=== PATIENT | female | born 1975 | race Caucasian/White ===

== ENCOUNTER → 2017-11-10 | Outpatient (CLI) | payer BC ==
--- NOTE | 2017-11-10 08:57 | MM ---
Reason for exam: screening (asymptomatic). Baseline mammogram. History: Took hormonal contraceptives for 1 year. Physical Findings: Nurse did not find any significant physical abnormalities on exam. MG 3D Screening Mammo W/Cad Bilateral CC and MLO view(s) were taken. There are scattered fibroglandular densities. There is no discrete abnormality. These results were verbally communicated with the patient and result sheet given to the patient on 11/10/17. ASSESSMENT: Negative, BI-RAD 1 RECOMMENDATION: Routine screening mammogram of both breasts in 1 year. Manage on a clinical basis with regard to milky discharge.
--- NOTE | 2017-11-10 13:00 | US ---
EXAMINATION TYPE: US transvaginal DATE OF EXAM: 11/10/2017 COMPARISON: 11/07/2015 CLINICAL HISTORY: 42-year-old female Menorrhagia N92.0. PCOS, heavy painful periods TECHNIQUE: Transvaginal (TV). Date of LMP: 10/11/2017 FINDINGS: EXAM MEASUREMENTS: Uterus: 8.3 x 3.9 x 4.9 cm Endometrial Stripe: 1.3 cm Right Ovary: 1.9 x 1.6 x 2.0 cm for a volume of 3.3 mL. Left Ovary: 2.2 x 2.7 x 2.9 cm 1. Uterus: Anteverted with a prominent scar demonstrated. Possible 7 mm niche on image 512 . 2. Endometrium: wnl 3. Right Ovary: 8 mm dominant follicle within. 4. Left Ovary: wnl as visualized, limited visualization due to bowel gas. 5. Bilateral Adnexa: wnl 6. Posterior cul-de-sac: no free fluid IMPRESSION: 1. Anteverted uterus with a prominent scar. There is no accumulated fluid here to clearly indicate a scar niche. 2. Overall size of the ovaries is within normal limits. There is a 8 mm dominant follicle in the righ t ovary. 3. No pelvic free fluid.
== END | disposition home or self-care (01) ==
LOC: RADMAMWWP 07:39
PROVIDERS: ATTEND Family Medicine
DX: Z12.31 Encounter for screening mammogram for malignant neoplasm of breast (principal); N85.4 Malposition of uterus
CPT/HCPCS: 76830; 77063; 77067

== ENCOUNTER 2018-01-01 07:40 | Day surgery (SDC) | payer BC ==
[2017-12-26 14:30] VITALS: BMI 33.5
--- NOTE | 2017-12-31 08:45 | P.HPOB ---
History of Present Illness H&P Date: 12/31/17 Chief Complaint: Menorrhagia Della is a 42-year-old female with very heavy vaginal bleeding. She relates that she is unable to her normal job due to the heaviness of her bleeding which is gotten worse over the last several years. She relates that the bleeding is gotten so bad that she cannot do her job, and sometimes has to stay home from her job due to how heavy the bleeding is. Risks/benefits/alternatives to a D&C with hysteroscopy NovaSure ablation were reviewed with the patient in detail and did include but were not limited to bleeding and infection, perforation as well as potential thermal injuries and pain with potential need for other surgeries in the future due to especially her 2 prior sections. She is accepting of these risks and understands these risks as she is unable to function otherwise and needs some type of therapy to all the questions were answered for her at this time. Past Medical History Additional Past Medical History / Comment(s): ON METFORMIN FOR WEIGHT LOSS NOT DIABETES History of Any Multi-Drug Resistant Organisms: None Reported Past Surgical History: Adenoidectomy, Bariatric Surgery, Section, Cholecystectomy, Orthopedic Surgery, Tonsillectomy Additional Past Surgical History / Comment(s): PITO EN Y-2007. carpal tunnel x2. BMT CHILD Past Anesthesia/Blood Transfusion Reactions: No Reported Reaction Additional Past Anesthesia/Blood Transfusion Reaction / Comment(s): Adopted- FAMILY HX UNKNOWN Smoking Status: Current every day smoker - Past Family History Mother Family Medical History: Unable to Obtain Additional Family Medical History / Comment(s): Adopted Medications and Allergies Home Medications Medication Instructions Recorded Confirmed Type No Known Home Medications 07/26/14 12/26/17 History Allergies Allergy/AdvReac Type Severity Reaction Status Date / Time No Known Allergies Allergy Verified 12/26/17 14:24 Exam Osteopathic Statement: *. No significant issues noted on an osteopathic structural exam other than those noted in the History and Physical/Consult. - OBG Physical Exam Breast: both: normal (no masses) Abdomen: bowel sounds normal, no diffuse tenderness, no bruit present, no guarding noted, no hepatomegaly, no splenomegaly, no mass Vulva: both: normal Vagina: normal moisture, no discharge Cervix: no lesion, no discharge Uterus: normal size, normal contour Adnexa: both: normal Anus/Rectum: normal perianal skin, no rectal mass, no hemorrhoids, heme negative
[~2018-01-01 07:40] MED LIST: DEXAMETHASONE SOD PHOSPHATE 10 MG/ML 1 ML VIAL IV ONE; LACTATED RINGERS 1,000 ML IV SCH; MIDAZOLAM 2 MG/2 ML VIAL IV PRN; ONDANSETRON 4 MG/2 ML VIAL IVP ONE; Pre Op ABX Message 1 EACH MISC MISCELLANE ONE; SCOPOLAMINE 1.5MG/72HR PATCH TRANSDERM ONE; fentaNYL (PF) 50 MCG/ML 2 ML AMP IV PRN
[2018-01-01] MEDS ORDERED: LACTATED RINGERS 1,000 ML IV ONE ×3 (08:12→10:59)
[2018-01-01] MEDS ORDERED: LIDOCAINE 1% 20 ML VIAL (10MG/ML) FOR IV START INTRADERMA ONE (08:13)
[2018-01-01] MEDS ORDERED: SUCCINYLCHOLINE CHLORIDE 100 MG/5 ML SYR IV ONE (09:42)
[2018-01-01] MEDS ORDERED: MIDAZOLAM 2 MG/2 ML VIAL ONE (09:42)
[2018-01-01] MEDS ORDERED: LIDOCAINE 1% INJ 10MG/ML (20 ML MDV) ONE (09:42)
[2018-01-01] MEDS ORDERED: PROPOFOL 10 MG/ML 20 ML VIAL IV ONE (09:42)
[2018-01-01] MEDS ORDERED: fentaNYL (PF) 50 MCG/ML 2 ML AMP ONE (09:42)
[2018-01-01] MEDS ORDERED: FAMOTIDINE 20 MG/2 ML VIAL IVP ONE (10:45)
[2018-01-01 10:54] VITALS: TEMP 96.8
[2018-01-01 11:52] VITALS: BP 123/77; PULSE 68; RESP 18
--- NOTE | 2018-01-12 16:57 | P.OP ---
Date of Procedure: 01/01/18 Preoperative Diagnosis: Menorrhagia Postoperative Diagnosis: Same Procedure(s) Performed: D&C with hysteroscopy and NovaSure Anesthesia: ALEM Surgeon: Jimmy Dhaliwal Estimated Blood Loss (ml): 3 Pathology: other (Uterine curettings) Condition: stable Operative Findings: Poor visualization of uterine lining due to being on menses no gross pathology however Description of Procedure: Patient was taken to the operating suite where a general anesthetic was found to be adequate. She was prepped and draped in the normal sterile fashion and placed in the dorsal lithotomy position. Initially weighted speculum was inserted into the vagina and the anterior lip of the cervix was identified and grasped with an Allis clamp. Cervix was then dilated and uterus was sounded to 8 cm. Camera was inserted limited visualization due to menses. Camera was then removed and sharp curettings of endometrium were obtained and placed on Telfa and sent to pathology. Once this was accomplished NovaSure system was brought in. NovaSure system was placed with length of 4.5 and a width of 3 it was tested and passed its patency test. It was then enabled and the burn was initiated lasting 92 seconds. At the conclusion of the burn system was removed camera was reinserted with good burn noted. All instruments were then removed. Sponge, lap, needle counts were all correct 2. Patient was then taken to the recovery room in stable and satisfactory condition. Plan - Discharge Summary New Discharge Prescriptions: New Ibuprofen [Motrin] 600 mg PO Q6HR PRN #30 tab PRN Reason: Pain Discharge Medication List Ibuprofen [Motrin] 600 mg PO Q6HR PRN #30 tab 01/01/18 [Rx] Follow up Appointment(s)/Referral(s): Jimmy Dhaliwal DO [Doctor of Osteopathic Medicine] - 2 Weeks Activity/Diet/Wound Care/Special Instructions: No heavy lifting, limit stairs and driving today, pelvic rest. If any high temperatures, heavy bleeding, or severe pain call my office Discharge Disposition: HOME SELF-CARE
== END 2018-01-01 12:03 | disposition home or self-care (01) ==
LOC: OR 07:40
PROVIDERS: ATTEND Obstetrics & Gynecology
DX: N84.0 Polyp of corpus uteri (principal); N92.0 Excessive and frequent menstruation with regular cycle; K21.9 Gastro-esophageal reflux disease without esophagitis; F17.200 Nicotine dependence, unspecified, uncomplicated; Z79.84 Long term (current) use of oral hypoglycemic drugs; Z98.84 Bariatric surgery status; Z90.49 Acquired absence of other specified parts of digestive tract
CPT/HCPCS: 81025; 88305; 58563; J2250; J1100; J2405; J2001; J3010; J0330; J2704

== ENCOUNTER 2019-03-31 00:57 | Emergency (ER) | payer BC ==
[2019-03-31 01:15] VITALS: TEMP 97.7
[2019-03-31] MEDS ORDERED: SODIUM CHLORIDE 0.9% 500 ML 500 ML IV STA (01:21)
[2019-03-31] MEDS ORDERED: ONDANSETRON 4 MG/2 ML VIAL IVP STA (01:21)
[2019-03-31] MEDS ORDERED: FAMOTIDINE 20 MG/2 ML VIAL IV STA (01:22)
[2019-03-31] MEDS ORDERED: MAG HYDROX/AL HYDROX/SIMETH 30 ML, HYOSCYAMINE ELIXIR 10 ML, LIDOCAINE VISCOUS 2% 10 ML PO STA ×3 (01:22)
[2019-03-31 02:01] LABS: Basophils % (A) 0 %; Eosinophils # (A) 0.5 k/uL (0-0.7); Eosinophils % (A) 4 %; HGB 14.5 gm/dL (11.4-16.0); Lymphocytes # (A) 1.1 k/uL (1.0-4.8); Lymphocytes % (A) 7 %; MCH 31.9 pg (25.0-35.0); MCHC 33.7 g/dL (31.0-37.0); MCV 94.5 fL (80.0-100.0); Mean Platelet Volume 7.4; Monocytes # (A) 0.7 k/uL (0-1.0); Monocytes % (A) 5 %; Neutrophils % (A) 82 %; Platelet Count 255 k/uL (150-450); RBC 4.55 m/uL (3.80-5.40); RDW 13.1 % (11.5-15.5); WBC 14.6 k/uL (3.8-10.6)
[2019-03-31 02:10] LABS: INR 0.9 (<1.2); Partial Thromboplastin Time 24.9 sec (22.0-30.0); Prothrombin Time 9.7 sec (9.0-12.0)
[2019-03-31 02:12] LABS: ALT 28 U/L (9-52); AST 28 U/L (14-36); African American GFR (CKD) >90 (>60 ml/min/1.73 sqM); Albumin 4.2 g/dL (3.5-5.0); Alkaline Phosphatase 59 U/L (38-126); Amylase 42 U/L (30-110); Anion Gap 9 mmol/L; Blood Urea Nitrogen 13 mg/dL (7-17); Calcium 9.2 mg/dL (8.4-10.2); Carbon Dioxide 24 mmol/L (22-30); Chloride 106 mmol/L (98-107); Glucose 99 mg/dL (74-99); Non-African American GFR(CKD) >90 (>60 ml/min/1.73 sqM); Potassium 4.2 mmol/L (3.5-5.1); Sodium 139 mmol/L (137-145); Total Bilirubin 0.5 mg/dL (0.2-1.3); Total Protein 7.3 g/dL (6.3-8.2)
--- NOTE | 2019-03-31 02:22 | XR ---
EXAM: XR Abdomen, 1 View CLINICAL HISTORY: ITS.REASON XR Reason: abdominal pain TECHNIQUE: Frontal supine view of the abdomen/pelvis. COMPARISON: 10/25/2014 FINDINGS: Intraperitoneal space: No pneumoperitoneum underlying the hemidiaphragms. Gastrointestinal tract: There are focal air-fluid levels in a few nondilated small bowel loops in the right mid to lower abdomen. Scattered gas collections noted throughout the abdomen and pelvis with gas identified in predominantly in the transverse and descending colon to the level of the distal rectosigmoid colon in the central pelvis. Organs: Postoperative changes consistent with prior cholecystectomy. Bones/joints: Unremarkable. IMPRESSION: There are focal air-fluid levels in a few nondilated small bowel loops in the right mid to lower abdomen. This is nonspecific finding and may represent normal variation or represent ileus. No definitive radiographic findings to suggest high-grade bowel obstruction on this single projection examination.
[2019-03-31 02:32] LABS: Appearance,Urine Clear (Clear); Bilirubin,Urine Negative (Negative); Blood,Urine Negative (Negative); Color,Urine Yellow; Glucose,Urine (UA) Negative (Negative); Ketones,Urine Negative (Negative); Leukocyte Esterase,Urine Negative (Negative); Nitrite,Urine Negative (Negative); PH, Urine 5.5 (5.0-8.0); Protein,Urine Trace (Negative); Specific Gravity,Urine 1.028 (1.001-1.035); Urobilinogen,Urine <2.0 mg/dL (<2.0)
--- NOTE | 2019-03-31 02:37 | ED ---
Abdominal Pain HPI - General Chief Complaint: Abdominal Pain Stated Complaint: abd pain Time Seen by Provider: 03/31/19 01:08 Source: patient - History of Present Illness Initial Comments: 43-year-old female patient presents to the emergency department today for evaluation of midepigastric abdominal pain. Patient states this started approximately one hour prior to arrival. Patient states she does have a history of peptic ulcer disease and this feels similar to her previous "attacks". Patient states she did take Tums and Mylanta without relief of symptoms. Patient denies any pain radiating through to her back. Denies nausea or vomiting. Patient does have history of bariatric surgery, states that she has had endoscopy in the past showing ulcers in her stomach. Patient denies any recent rash, fever, chills, shortness breath, chest pain, diarrhea, constipation, back pain, numbness, tingling, dizziness, weakness, hematuria, dysuria, urinary urgency, urinary frequency, headache, visual changes, or any other complaints. - Related Data Previous Rx's Medication Instructions Recorded Ibuprofen [Motrin] 600 mg PO Q6HR PRN #30 tab 01/01/18 Omeprazole [PriLOSEC] 20 mg PO AC-BRKFST #30 cap 03/31/19 Allergies Allergy/AdvReac Type Severity Reaction Status Date / Time No Known Allergies Allergy Verified 12/26/17 14:24 Review of Systems ROS Statement: Those systems with pertinent positive or pertinent negative responses have been documented in the HPI. ROS Other: All systems not noted in ROS Statement are negative. Past Medical History Additional Past Medical History / Comment(s): ON METFORMIN FOR WEIGHT LOSS NOT DIABETES History of Any Multi-Drug Resistant Organisms: None Reported Past Surgical History: Adenoidectomy, Bariatric Surgery, Section, Cholecystectomy, Orthopedic Surgery, Tonsillectomy Additional Past Surgical History / Comment(s): PITO EN Y-2007. carpal tunnel x2. BMT CHILD Past Anesthesia/Blood Transfusion Reactions: No Reported Reaction Additional Past Anesthesia/Blood Transfusion Reaction / Comment(s): Adopted- FAMILY HX UNKNOWN Past Psychological History: No Psychological Hx Reported Smoking Status: Current every day smoker - Past Family History Mother Family Medical History: Unable to Obtain Additional Family Medical History / Comment(s): Adopted General Exam General appearance: alert, in no apparent distress, other (This is a well- developed, well-nourished adult female patient in no acute distress. Vital signs upon presentation are temperature 97.7F, pulse 88, respirations 18, blood pressure 123/104, pulse ox 96% on room air.) Eye exam: Present: normal appearance, PERRL, EOMI. Absent: scleral icterus, conjunctival injection, periorbital swelling ENT exam: Present: normal exam, normal oropharynx, mucous membranes moist Respiratory exam: Present: normal lung sounds bilaterally. Absent: respiratory distress, wheezes, rales, rhonchi, stridor Cardiovascular Exam: Present: regular rate, normal rhythm, normal heart sounds. Absent: systolic murmur, diastolic murmur, rubs, gallop, clicks GI/Abdominal exam: Present: soft, tenderness (Midepigastric tenderness), normal bowel sounds. Absent: distended, guarding, rebound, rigid Neurological exam: Present: alert, oriented X3, CN II-XII intact Psychiatric exam: Present: normal affect, normal mood Skin exam: Present: warm, dry, intact, normal color. Absent: rash Course Vital Signs 03/31/19 03/31/19 01:12 02:15 Temperature 97.7 F Pulse Rate 88 90 Respiratory 18 16 Rate Blood Pressure 123/104 126/92 O2 Sat by Pulse 96 96 Oximetry Medical Decision Making - Medical Decision Making 43-year-old female patient presents to the emergency department today for evaluation of midepigastric abdominal pain. Physical examination did reveal mild midepigastric tenderness. Labs reviewed and are unremarkable. Troponin negative. EKG showed normal sinus rhythm. Patient's x-ray did reveal scattered small bowel air-fluid levels consistent with ileus, or normal variant. Patient is aware of this finding. Upon reevaluation she does report improvement of symptoms. Patient be discharged with prescription for Prilosec she does have a history of peptic ulcer disease. She is instructed follow up with her primary care physician for recheck in 1-2 days. Return parameters were discussed in detail. She verbalizes understanding and agrees this plan. - Lab Data Result diagrams: 03/31/19 01:45 03/31/19 01:45 Lab Results 03/31/19 03/31/19 03/31/19 Range/Units 01:45 01:45 01:45 WBC 14.6 H (3.8-10.6) k/uL RBC 4.55 (3.80-5.40) m/uL Hgb 14.5 (11.4-16.0) gm/dL Hct 43.0 (34.0-46.0) % MCV 94.5 (80.0-100.0) fL MCH 31.9 (25.0-35.0) pg MCHC 33.7 (31.0-37.0) g/dL RDW 13.1 (11.5-15.5) % Plt Count 255 (150-450) k/uL Neutrophils % 82 % Lymphocytes % 7 % Monocytes % 5 % Eosinophils % 4 % Basophils % 0 % Neutrophils # 12.0 H (1.3-7.7) k/uL Lymphocytes # 1.1 (1.0-4.8) k/uL Monocytes # 0.7 (0-1.0) k/uL Eosinophils # 0.5 (0-0.7) k/uL Basophils # 0.0 (0-0.2) k/uL PT 9.7 (9.0-12.0) sec INR 0.9 (<1.2) APTT 24.9 (22.0-30.0) sec Sodium 139 (137-145) mmol/L Potassium 4.2 (3.5-5.1) mmol/L Chloride 106 (98-107) mmol/L Carbon Dioxide 24 (22-30) mmol/L Anion Gap 9 mmol/L BUN 13 (7-17) mg/dL Creatinine 0.76 (0.52-1.04) mg/dL Est GFR (CKD-EPI)AfAm >90 (>60 ml/min/1.73 sqM) Est GFR (CKD-EPI)NonAf >90 (>60 ml/min/1.73 sqM) Glucose 99 (74-99) mg/dL Calcium 9.2 (8.4-10.2) mg/dL Total Bilirubin 0.5 (0.2-1.3) mg/dL AST 28 (14-36) U/L ALT 28 (9-52) U/L Alkaline Phosphatase 59 (38-126) U/L Troponin I (0.000-0.034) ng/mL Total Protein 7.3 (6.3-8.2) g/dL Albumin 4.2 (3.5-5.0) g/dL Amylase 42 (30-110) U/L Lipase 158 (23-300) U/L Urine Color Urine Appearance (Clear) Urine pH (5.0-8.0) Ur Specific [place] (1.001-1.035) Urine Protein (Negative) Urine Glucose (UA) (Negative) Urine Ketones (Negative) Urine Blood (Negative) Urine Nitrite (Negative) Urine Bilirubin (Negative) Urine Urobilinogen (<2.0) mg/dL Ur Leukocyte Esterase (Negative) 03/31/19 03/31/19 Range/Units 01:45 02:00 WBC (3.8-10.6) k/uL RBC (3.80-5.40) m/uL Hgb (11.4-16.0) gm/dL Hct (34.0-46.0) % MCV (80.0-100.0) fL MCH (25.0-35.0) pg MCHC (31.0-37.0) g/dL RDW (11.5-15.5) % Plt Count (150-450) k/uL Neutrophils % % Lymphocytes % % Monocytes % % Eosinophils % % Basophils % % Neutrophils # (1.3-7.7) k/uL Lymphocytes # (1.0-4.8) k/uL Monocytes # (0-1.0) k/uL Eosinophils # (0-0.7) k/uL Basophils # (0-0.2) k/uL PT (9.0-12.0) sec INR (<1.2) APTT (22.0-30.0) sec Sodium (137-145) mmol/L Potassium (3.5-5.1) mmol/L Chloride (98-107) mmol/L Carbon Dioxide (22-30) mmol/L Anion Gap mmol/L BUN (7-17) mg/dL Creatinine (0.52-1.04) mg/dL Est GFR (CKD-EPI)AfAm (>60 ml/min/1.73 sqM) Est GFR (CKD-EPI)NonAf (>60 ml/min/1.73 sqM) Glucose (74-99) mg/dL Calcium (8.4-10.2) mg/dL Total Bilirubin (0.2-1.3) mg/dL AST (14-36) U/L ALT (9-52) U/L Alkaline Phosphatase (38-126) U/L Troponin I <0.012 (0.000-0.034) ng/mL Total Protein (6.3-8.2) g/dL Albumin (3.5-5.0) g/dL Amylase (30-110) U/L Lipase (23-300) U/L Urine Color Yellow Urine Appearance Clear (Clear) Urine pH 5.5 (5.0-8.0) Ur Specific [place] 1.028 (1.001-1.035) Urine Protein Trace H (Negative) Urine Glucose (UA) Negative (Negative) Urine Ketones Negative (Negative) Urine Blood Negative (Negative) Urine Nitrite Negative (Negative) Urine Bilirubin Negative (Negative) Urine Urobilinogen <2.0 (<2.0) mg/dL Ur Leukocyte Esterase Negative (Negative) - EKG Data -: EKG Interpreted by Me EKG Comments: EKG obtained at 05 13 shows normal sinus rhythm with a ventricular rate of 87, MO interval 168, QRS duration 82, QT 388, QTC 466. No evidence of ST elevation or depression. - Radiology Data Radiology results: report reviewed Disposition Clinical Impression: Abdominal pain Disposition: HOME SELF-CARE Condition: Good Instructions (If sedation given, give patient instructions): Diet for Stomach Ulcers and Gastritis (ED), Abdominal Pain (ED) Additional Instructions: Follow-up with your primary care physician for recheck as soon as possible. Take medication as directed. Return to the emergency department immediately for any new, worsening, or concerning symptoms. Prescriptions: Omeprazole [PriLOSEC] 20 mg PO AC-BRKFST #30 cap Is patient prescribed a controlled substance at d/c from ED?: No Referrals: Nicholas Mijares MD [Primary Care Provider] - 1-2 days Time of Disposition: 03:01
[2019-03-31 02:52] VITALS: RESP 16
[2019-03-31 04:07] VITALS: BP 129/95; PULSE 94
== END 2019-03-31 03:15 | disposition home or self-care (01) ==
LOC: EC 00:57
DX: R10.13 Epigastric pain (principal); R93.5 Abnormal findings on diagnostic imaging of other abdominal regions, including retroperitoneum; F17.200 Nicotine dependence, unspecified, uncomplicated; Z79.84 Long term (current) use of oral hypoglycemic drugs; Z90.49 Acquired absence of other specified parts of digestive tract; Z98.84 Bariatric surgery status; Z87.11 Personal history of peptic ulcer disease
CPT/HCPCS: 36415; 80053; 82150; 83690; 84484; 85025; 85610; 85730; 81003; 74018; 99284; 96374; 96375; 96361; J2405

== ENCOUNTER → 2019-04-01 | Outpatient (CLI) | payer OTHER | END | disposition home or self-care (01) | LOC: RADCTMAIN 10:56 | PROVIDERS: ATTEND Physician Assistant | DX: Z53.9 Procedure and treatment not carried out, unspecified reason (principal) ==

== ENCOUNTER → 2019-04-02 | Outpatient (CLI) | payer OTHER ==
--- NOTE | 2019-04-02 12:54 | CT ---
EXAMINATION TYPE: CT abdomen pelvis w con DATE OF EXAM: 04/02/2019 HISTORY: Intestinal obstruction. Abdominal pain CT DLP: 1839mGycm Automated Exposure Control for Dose Reduction was Utilized. CONTRAST: CT scan of the abdomen and pelvis is performed with IV Contrast, patient injected with 100 mL of Isov ue 300. COMPARISON: 10/26/2014 FINDINGS: LUNG BASES: Minimal right basilar subsegmental atelectasis. LIVER/GB: No significant abnormality is appreciated. Focal fatty infiltration is seen near the fissur e for the falciform ligament on axial image 22 and 23. Gallbladder surgically absent. PANCREAS: No significant abnormality is seen. SPLEEN: There is a small splenule incidentally seen ADRENALS: No nodules or thickening. KIDNEYS: Kidneys enhance and excrete symmetrically without hydronephrosis.. BOWEL: Oral contrast extends through the small bowel into the colon opacifying the cecum and portions of the right hemicolon. No dilated bowel or focal pericolonic/perienteric fat stranding. Partial gas trectomy change is again noted. UTERUS/ADNEXA: No gross abnormality seen. LYMPH NODES: No greater than 1cm abdominal or pelvic lymph nodes are appreciated. Scattered nonenlarg ed mesenteric lymph nodes in the central mesentery. OSSEOUS STRUCTURES: Intervertebral disc space narrowing at L5-S1 mild multilevel degenerative change of the visualized spine. IMPRESSION: No significant acute finding is seen to account for patient's clinical symptoms. No evide nce of bowel obstruction.
== END ==
LOC: RADCTMAIN 10:38
PROVIDERS: ATTEND Family Medicine
DX: K56.609 Unspecified intestinal obstruction, unspecified as to partial versus complete obstruction (principal)
CPT/HCPCS: 74177; Q9967 ×2

== ENCOUNTER 2019-11-10 03:25 | Emergency (ER) | payer BC, OTHER ==
--- NOTE | 2019-11-10 03:43 | ED ---
Abdominal Pain HPI - General Chief Complaint: Abdominal Pain Stated Complaint: abd pain Time Seen by Provider: 11/10/19 03:42 Source: patient, RN notes reviewed, old records reviewed Mode of arrival: ambulatory Limitations: no limitations - History of Present Illness Initial Comments: This is a 44-year-old female DF for evaluation of abdominal pain burning burning gastritis. Patient states she has a history of reflux recent she gets a GI cocktail it is resolved. Patient has positive nausea no active vomiting no fevers no diarrhea abdominal pain is nontender but substernal burning radiating to her chest. History of same MD Complaint: abdominal pain -: hour(s) Location: epigastric Radiation: epigastric Migration to: epigastric Severity: moderate Severity scale (1-10): 6 Quality: sharp Consistency: constant Improves With: nothing Worsens With: nothing Associated Symptoms: nausea Treatments Prior to Arrival: antacids - Related Data Previous Rx's Medication Instructions Recorded Ibuprofen [Motrin] 600 mg PO Q6HR PRN #30 tab 01/01/18 Omeprazole [PriLOSEC] 20 mg PO AC-BRKFST #30 cap 03/31/19 Allergies Allergy/AdvReac Type Severity Reaction Status Date / Time No Known Allergies Allergy Verified 11/10/19 03:30 Review of Systems ROS Statement: Those systems with pertinent positive or pertinent negative responses have been documented in the HPI. ROS Other: All systems not noted in ROS Statement are negative. Past Medical History Additional Past Medical History / Comment(s): "ulcer attacks" History of Any Multi-Drug Resistant Organisms: None Reported Past Surgical History: Adenoidectomy, Bariatric Surgery, Section, Cholecystectomy, Orthopedic Surgery, Tonsillectomy Additional Past Surgical History / Comment(s): PITO EN Y-2007. carpal tunnel x2. BMT CHILD Past Anesthesia/Blood Transfusion Reactions: No Reported Reaction Additional Past Anesthesia/Blood Transfusion Reaction / Comment(s): Adopted- FAMILY HX UNKNOWN Past Psychological History: No Psychological Hx Reported Smoking Status: Current every day smoker Past Alcohol Use History: None Reported Past Drug Use History: None Reported - Past Family History Mother Family Medical History: Unable to Obtain Additional Family Medical History / Comment(s): Adopted General Exam General appearance: alert, in no apparent distress Head exam: Present: atraumatic, normocephalic, normal inspection Eye exam: Present: normal appearance, PERRL, EOMI. Absent: scleral icterus, conjunctival injection, periorbital swelling ENT exam: Present: normal exam, mucous membranes moist Neck exam: Present: normal inspection. Absent: tenderness, meningismus, lymphadenopathy Respiratory exam: Present: normal lung sounds bilaterally. Absent: respiratory distress, wheezes, rales, rhonchi, stridor Cardiovascular Exam: Present: regular rate, normal rhythm, normal heart sounds. Absent: systolic murmur, diastolic murmur, rubs, gallop, clicks GI/Abdominal exam: Present: soft, normal bowel sounds. Absent: distended, tenderness, guarding, rebound, rigid Extremities exam: Present: normal inspection, full ROM, normal capillary refill. Absent: tenderness, pedal edema, joint swelling, calf tenderness Back exam: Present: normal inspection Neurological exam: Present: alert, oriented X3, CN II-XII intact Psychiatric exam: Present: normal affect, normal mood Skin exam: Present: warm, dry, intact, normal color. Absent: rash Course Vital Signs 11/10/19 11/10/19 03:26 04:37 Temperature 97.6 F 97.1 F L Pulse Rate 74 65 Respiratory 18 16 Rate Blood Pressure 160/100 130/88 O2 Sat by Pulse 98 97 Oximetry - Reevaluation(s) Reevaluation #1: Medical record is reviewed Patient symptoms are resolved Patient informed results were discharge Medical Decision Making - Medical Decision Making 44 female dear with nonspecific abdominal pain. Symptoms are resolved here in the ER x-rays labwork is normal patient can be discharged home - Radiology Data Radiology results: report reviewed (X-ray abdominal series is negative for acute disease), image reviewed Disposition Clinical Impression: Abdominal pain, GERD (gastroesophageal reflux disease), Gastritis Disposition: HOME SELF-CARE Condition: Good Instructions (If sedation given, give patient instructions): Gastritis (ED), Abdominal Pain (ED) Is patient prescribed a controlled substance at d/c from ED?: No Referrals: Nicholas Mijares MD [Primary Care Provider] - 1-2 days
[2019-11-10] MEDS ORDERED: MAG HYDROX/AL HYDROX/SIMETH 30 ML, HYOSCYAMINE ELIXIR 10 ML, LIDOCAINE VISCOUS 2% 10 ML PO STA ×3 (03:46)
--- NOTE | 2019-11-10 04:21 | XR ---
EXAMINATION TYPE: XR abdomen acute w cxr DATE OF EXAM: 11/10/2019 COMPARISON: 03/31/2019 HISTORY: Abdominal pain TECHNIQUE: 4 views FINDINGS: Heart and mediastinum are normal. Lungs are clear. There are clips from cholecystectomy. Brown wel gas pattern is normal. There is no sign of intestinal obstruction or pneumoperitoneum. Fecal maddie morgan is normal. There are no pathologic calcifications over the kidneys. There is no evidence of abdom inal mass. Bony thorax is intact. IMPRESSION: Nonacute abdomen. Normal chest. There is clearing of intestinal fluid levels compared to old exam.
[2019-11-10 04:38] VITALS: BP 130/88; PULSE 65; RESP 16; TEMP 97.1
== END 2019-11-10 04:38 | disposition home or self-care (01) ==
LOC: EC 03:25
DX: K29.70 Gastritis, unspecified, without bleeding (principal); K21.9 Gastro-esophageal reflux disease without esophagitis; F17.200 Nicotine dependence, unspecified, uncomplicated; Z98.84 Bariatric surgery status; Z90.49 Acquired absence of other specified parts of digestive tract
CPT/HCPCS: 74022; 99284

== ENCOUNTER → 2020-05-03 | Outpatient (CLI) | payer OTHER ==
[2020-05-03 12:13] LABS: Basophils # (A) 0.1 k/uL (0-0.2); Basophils % (A) 1 %; Eosinophils # (A) 0.6 k/uL (0-0.7); Eosinophils % (A) 5 %; HCT 42.7 % (34.0-46.0); HGB 13.6 gm/dL (11.4-16.0); Lymphocytes # (A) 2.3 k/uL (1.0-4.8); Lymphocytes % (A) 19 %; MCHC 31.9 g/dL (31.0-37.0); Mean Platelet Volume 7.2; Monocytes # (A) 0.6 k/uL (0-1.0); Monocytes % (A) 5 %; Neutrophils # (A) 8.2 k/uL (1.3-7.7); Neutrophils % (A) 67 %; Platelet Count 301 k/uL (150-450); RBC 4.54 m/uL (3.80-5.40); RDW 13.6 % (11.5-15.5); WBC 12.2 k/uL (3.8-10.6)
[2020-05-03 12:26] LABS: African American GFR (CKD) >90 (>60 ml/min/1.73 sqM); Anion Gap 2 mmol/L; Blood Urea Nitrogen 9 mg/dL (7-17); Carbon Dioxide 29 mmol/L (22-30); Chloride 107 mmol/L (98-107); Glucose 96 mg/dL (74-99); Non-African American GFR(CKD) 89 (>60 ml/min/1.73 sqM); Potassium 4.1 mmol/L (3.5-5.1); Sodium 138 mmol/L (137-145)
== END | disposition home or self-care (01) ==
LOC: LABPAT 10:58
PROVIDERS: ATTEND Obstetrics & Gynecology
DX: Z01.818 Encounter for other preprocedural examination (principal)
CPT/HCPCS: 36415; 80048; 85025; 86850; 86900; 86901

== ENCOUNTER 2020-05-04 05:47 | Day surgery (SDC) | payer BC, OTHER ==
[2020-04-26 08:42] VITALS: BMI 33.0
--- NOTE | 2020-05-02 16:30 | P.HPOB ---
History of Present Illness H&P Date: 05/02/20 Chief Complaint: Dysfunctional uterine bleeding Della is a 44-year-old female who has dysfunctional uterine bleeding. She underwent a NovaSure in December 2017 and she has not had any point where she has stopped bleeding. It did improve somewhat but from October of last year until November she had almost daily bleeding and the symptoms have gotten heavy again and she needs use a pad and a tampon to keep bleeding from happening. 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 She is scheduled for a robotic-assisted laparoscopic hysterectomy possible DENTON and possible BSO. We'll plan to remove the fallopian tubes with the surgery however. Risks/benefits/alternatives to this procedure were reviewed with the patient in detail and did include but were not limited to bleeding and infection, damage to bladder or bowel, ureteral injuries, vascular or nerve damage potential need for further surgery or . Her past surgical history does include 2 mL sections and this she is aware does put her at increased risk for bladder injury. She relates she also has significant pain when she is on her cycles as well. All the questions were answered for her prior to proceeding to the operative room. Past Medical History Past Medical History: Fibromyalgia, GERD/Reflux Additional Past Medical History / Comment(s): peptic ulcers, migraines, anemia, History of Any Multi-Drug Resistant Organisms: None Reported Past Surgical History: Adenoidectomy, Bariatric Surgery, Section, Cholecystectomy, Ear Surgery, Orthopedic Surgery, Tonsillectomy, Uterine Ablation Additional Past Surgical History / Comment(s): PITO EN Y-2007, man carpal tunnel, C/S x 2 Past Anesthesia/Blood Transfusion Reactions: No Reported Reaction Additional Past Anesthesia/Blood Transfusion Reaction / Comment(s): Adopted- FAMILY HX UNKNOWN Smoking Status: Current every day smoker - Past Family History Mother Family Medical History: Unable to Obtain Additional Family Medical History / Comment(s): Adopted Medications and Allergies Home Medications Medication Instructions Recorded Confirmed Type Aspirin/Acetaminophen/Caffeine 2 each PO DIRECTED PRN 04/26/20 04/26/20 History [Excedrin Migraine Caplet] Omeprazole [PriLOSEC] 20 mg PO HS 04/26/20 04/26/20 History Zinc Gummie 2 tab PO HS 04/26/20 04/26/20 History Allergies Allergy/AdvReac Type Severity Reaction Status Date / Time No Known Allergies Allergy Verified 04/26/20 08:32 Exam Osteopathic Statement: *. No significant issues noted on an osteopathic structural exam other than those noted in the History and Physical/Consult. - OBG Physical Exam Breast: both: normal (no masses) Abdomen: bowel sounds normal, no diffuse tenderness, no bruit present, no guarding noted, no hepatomegaly, no splenomegaly, no mass Vulva: both: normal Vagina: normal moisture, no discharge Cervix: no lesion, no discharge Uterus: normal size, normal contour Adnexa: both: normal Anus/Rectum: normal perianal skin, no rectal mass, no hemorrhoids, heme negative
[2020-05-04] MEDS ORDERED: DEXAMETHASONE SOD PHOSPHATE 4 MG/ML 1 ML VIAL IV ONE (05:58)
[2020-05-04] MEDS ORDERED: MIDAZOLAM 2 MG/2 ML VIAL IV PRN (05:58)
[2020-05-04] MEDS ORDERED: ONDANSETRON 4 MG/2 ML VIAL IVP ONE (05:58)
[2020-05-04] MEDS ORDERED: LIDOCAINE 1% (10MG/ML) FOR IV START INTRADERMA PRN (05:58)
[2020-05-04] MEDS ORDERED: LACTATED RINGERS 1,000 ML IV ONE (06:12)
[2020-05-04] MEDS ORDERED: MIDAZOLAM 2 MG/2 ML VIAL IVP ONE ×2 (06:50)
[2020-05-04] MEDS ORDERED: PROPOFOL 10 MG/ML 20 ML VIAL IV ONE (07:20)
[2020-05-04] MEDS ORDERED: LIDOCAINE 1% INJ 10MG/ML (20 ML MDV) ONE (07:20)
[2020-05-04] MEDS ORDERED: KETOROLAC 15 MG/ML 1 ML VIAL ONE (07:20)
[2020-05-04] MEDS ORDERED: NEOSTIGMINE 1 MG/ML 10 ML VIAL ONE (07:20)
[2020-05-04] MEDS ORDERED: GLYCOPYRROLATE 0.2 MG/ML 2 ML VIAL ONE (07:20)
[2020-05-04] MEDS ORDERED: ROCURONIUM 10 MG/ML (10 ML VIAL) IV ONE (07:20)
[2020-05-04] MEDS ORDERED: MIDAZOLAM 2 MG/2 ML VIAL ONE (07:20)
[2020-05-04] MEDS ORDERED: fentaNYL (PF) 50 MCG/ML 2 ML AMP ONE (07:20)
[2020-05-04] MEDS ORDERED: BUPIVACAINE (PF) 0.25% 30 ML VIAL SQ ONE ×2 (07:58)
[2020-05-04] MEDS ORDERED: ONDANSETRON 4 MG/2 ML VIAL IVP PRN (08:52)
[2020-05-04] MEDS ORDERED: SIMETHICONE 80 MG CHEWABLE PO PRN (08:52)
[2020-05-04] MEDS ORDERED: KETOROLAC 15 MG/ML 1 ML VIAL IVP PRN (08:52)
[2020-05-04] MEDS ORDERED: HYDROcodone/APAP 5-325MG 1 EACH TAB PO PRN (08:53)
--- NOTE | 2020-05-04 08:59 | P.OP ---
Date of Procedure: 05/04/20 Preoperative Diagnosis: Description. Bleeding: Pelvic pain: Failed NovaSure Postoperative Diagnosis: Same Procedure(s) Performed: Robotic-assisted laparoscopic hysterectomy with bilateral salpingectomy Anesthesia: ALEM Surgeon: Jimmy Dhaliwal Ledger Clerk #1: Lulu Shea Estimated Blood Loss (ml): 50 IV fluids (ml): 700 Urine output (ml): 100 Pathology: other (Uterus, cervix and fallopian tubes) Condition: stable Disposition: floor Operative Findings: Pathology pending. Noted significant adhesion of the bladder to the anterior uterine wall requiring careful dissection Description of Procedure: Patient was taken to the operating suite where general anesthetic was found be adequate. She was prepped and draped in the normal sterile fashion and placed in the dorsal lithotomy position. Initially a weighted speculum was inserted into the vagina and the anterior lip of the cervix identified and grasped with single-tooth tenaculum. Cervix was then dilated and uterus was sounded to 9 cm. Shelli manipulator was then inserted without difficulty using an 8 tip and a 3 cm cup and stay sutures at 3 and 9. Once this was completed all other instruments were removed and Anthony cath was placed. Gloves were then changed and attention was turned to the abdominal portion procedure where 3 mL of quarter percent Marcaine was injected periumbilically. Through this injected anesthetic a 5 mm skin incision was made and through this incision, under direct visualization with an optical trocar and sleeve the camera was inserted. Once peritoneal placement was assured gas was allowed to fully insufflate the abdomen and patient was placed in a 25 and all of her position. 2 lateral ports were then placed 10 cm lateral to the umbilicus bilaterally and a fourth port and sleeve was then inserted through a 1 cm incision between the left lateral and medial port. Medial port was then exchanged for a da Dante port robot was brought in and docked. Once fully docked a scissor was placed in the one arm and a [place] grasper through the 3 arm and at this point broke scrub and went to the console. Observations pelvis were noted. Uterus was then elevated and tipped to the right-hand side and the left fallopian tube was excised. Once this was completed left utero-ovarian ligament was identified cauterized transected and the mesosalpinx tissues to the round ligament were also cauterized transected round ligament was then cauterized transected and anterior posterior leafs were developed. Uterine vascularity on the left-hand side of the uterus was then cauterized to the cardinal ligaments. Once this was completed bladder flap was identified it was firmly adherent to the anterior uterus well above its normal position. Very careful dissection with both sharp and blunt dissection was then done to move it out of the operative field. Once was out of the operative field attention was turned to the right side of the uterus which in a similar fashion was developed. Once this was completed and verification of good dissection of the bladder out of the operative field Shelli manipulator had the balloon blown up on the cuff and anterior colpotomy was made. Once this was completed we moved in a counterclockwise fashion following the blue couple around 3 and 60 and she the head when necessary to maintain excellent hemostasis. Once it was fully removed it was brought into the vagina to maintain pneumoperitoneum. Once this was completed verification of hemostasis along the pedicles was then performed. Once this was felt to be adequate incidents were exchanged for a cardia grasper and a make suture cut the vaginal cuff was reapproximated with 2 OB lock suture in a running fashion. Pelvis was then irrigated and this fluid was then suctioned out. All these incidents were then removed and gas was allowed to expel from the abdomen once hemostasis was verified. 5 deep breaths were provided during this process. At this point I re-scrub in and did a cystoscopy with excellent flow noted from both ureteral jets and Dr. Shea reapproximated the abdominal incisions with 4-0 Vicryl subcuticularly and the remaining 7 mL of Marcaine was injected around the incisions. Sponge instruments and needles were all correct 2. Patient was then taken to the recovery room in stable and satisfactory condition.
[2020-05-04] MEDS: HYDROmorphone 0.5 MG/0.5 ML SYRINGE IVP PRN ×2 (09:31→09:50)
[2020-05-04] MEDS ORDERED: SODIUM CHLORIDE 0.9% 1,000 ML IV ONE (09:35)
[2020-05-04] MEDS ORDERED: FAMOTIDINE 20 MG/2 ML VIAL IVP ONE (09:44)
[2020-05-04] MEDS ORDERED: diphenhydrAMINE 50 MG/ML 1 ML VIAL IVP ONE (09:57)
[2020-05-04] MEDS ORDERED: LABETALOL SYRINGE 5 MG/ML IVP ONE ×2 (10:16→10:51)
[2020-05-04] MEDS: LACTATED RINGERS 1,000 ML IV SCH (12:07)
[2020-05-04] MEDS: SENNOSIDES-DOCUSATE SODIUM 1 EACH TAB PO SCH ×2 (12:07→19:27)
[2020-05-04] MEDS: HYDROcodone/APAP 5-325MG 1 EACH TAB PO PRN ×2 (15:15→19:27)
[2020-05-04] MEDS ORDERED: PANTOPRAZOLE 40 MG TABLET PO SCH (21:00)
[2020-05-04] MEDS ORDERED: ZOLPIDEM 5 MG TAB PO PRN (21:29)
[2020-05-05] MEDS: HYDROcodone/APAP 5-325MG 1 EACH TAB PO PRN ×3 (00:36→08:14)
[2020-05-05] MEDS: LACTATED RINGERS 1,000 ML IV SCH (04:26)
[2020-05-05] MEDS: SENNOSIDES-DOCUSATE SODIUM 1 EACH TAB PO SCH (08:17)
--- NOTE | 2020-05-05 08:59 | P.DS ---
Providers Expected date of discharge: 05/05/20 Attending physician: Jimmy Dhaliwal Primary care physician: Nicholas Mijares [facility] Course: Della is doing very well postop day 1. She is ambulating, voiding, and tolerating her diet. She is requesting discharge home today. Vital signs are stable and she is afebrile. Heart regular, lungs clear, extremities without pain. Abdomen soft she has bowel sounds and her incisions are intact. We'll plan discharged home today. Prescription for more Motrin and [place] were 4 to the pharmacy. Discharge instructions are thoroughly reviewed and all questions were answered for her prior to her discharge. She'll follow up with me in 1 week for incision exam. Patient Condition at Discharge: Good Plan - Discharge Summary Discharge Rx Participant: Yes New Discharge Prescriptions: New Ibuprofen [Motrin] 600 mg PO Q6HR PRN #30 tab PRN Reason: Pain HYDROcodone/APAP 5-325MG [[place] 5-325] 1 tab PO Q4HR PRN #30 tab PRN Reason: Pain No Action Omeprazole [PriLOSEC] 20 mg PO HS Aspirin/Acetaminophen/Caffeine [Excedrin Migraine Caplet] 2 each PO DIRECTED PRN PRN Reason: migraines Zinc Gummie 2 tab PO HS Discharge Medication List Aspirin/Acetaminophen/Caffeine [Excedrin Migraine Caplet] 2 each PO DIRECTED PRN 04/26/20 [History] Omeprazole [PriLOSEC] 20 mg PO HS 04/26/20 [History] Zinc Gummie 2 tab PO HS 04/26/20 [History] HYDROcodone/APAP 5-325MG [[place] 5-325] 1 tab PO Q4HR PRN #30 tab 05/05/20 [Rx] Ibuprofen [Motrin] 600 mg PO Q6HR PRN #30 tab 05/05/20 [Rx] Follow up Appointment(s)/Referral(s): Jimmy Dhaliwal DO [Doctor of Osteopathic Medicine] - 1 Week Activity/Diet/Wound Care/Special Instructions: No heavy lifting, limit stairs and driving, and pelvic rest. If any severe pain, high temperatures, or severe bleeding call my office or [facility] emergency room. She is aware to have no tub baths for 2 weeks showering is fine. Discharge Disposition: HOME SELF-CARE
[2020-05-05 09:30] VITALS: BP 138/90; PULSE 84; RESP 24; TEMP 97.9
== END 2020-05-05 10:47 | disposition home or self-care (01) ==
LOC: OR 05:47 → 6PED 08:48 → OR 05-05 10:47
PROVIDERS: ATTEND Obstetrics & Gynecology
DX: N93.8 Other specified abnormal uterine and vaginal bleeding (principal); R10.2 Pelvic and perineal pain; N92.0 Excessive and frequent menstruation with regular cycle; M79.7 Fibromyalgia; K21.9 Gastro-esophageal reflux disease without esophagitis; Z87.11 Personal history of peptic ulcer disease; G43.909 Migraine, unspecified, not intractable, without status migrainosus; D64.9 Anemia, unspecified; Z90.49 Acquired absence of other specified parts of digestive tract; Z98.891 History of uterine scar from previous surgery; Z98.84 Bariatric surgery status; Z98.890 Other specified postprocedural states; Z90.89 Acquired absence of other organs; F17.200 Nicotine dependence, unspecified, uncomplicated; Z79.899 Other long term (current) drug therapy
CPT/HCPCS: 58571; S2900; 81025; 86850; 86900; 86901; 88307

== ENCOUNTER 2020-05-06 03:43 | Emergency (ER) | payer OTHER ==
[2020-05-06 03:47] VITALS: TEMP 98.5
[2020-05-06] MEDS ORDERED: MAG HYDROX/AL HYDROX/SIMETH 30 ML CUP PO PRN (03:54)
[2020-05-06] MEDS ORDERED: MAG HYDROX/AL HYDROX/SIMETH 30 ML, HYOSCYAMINE ELIXIR 10 ML, LIDOCAINE VISCOUS 2% 10 ML PO STA ×6 (03:59→05:49)
[2020-05-06] MEDS ORDERED: PANTOPRAZOLE 40 MG/10 ML VIAL IVP STA (04:33)
[2020-05-06] MEDS ORDERED: ONDANSETRON 4 MG/2 ML VIAL IVP STA (04:33)
[2020-05-06] MEDS ORDERED: SODIUM CHLORIDE 0.9% 1,000 ML IV STA ×2 (04:33)
[2020-05-06] MEDS ORDERED: MORPHINE SULFATE 4 MG/ML SYRINGE IV STA (04:33)
--- NOTE | 2020-05-06 04:37 | ED ---
Abdominal Pain HPI - General Chief Complaint: Abdominal Pain Stated Complaint: Abd Pain Time Seen by Provider: 05/06/20 04:27 Source: patient, RN notes reviewed, old records reviewed Mode of arrival: ambulatory Limitations: no limitations - History of Present Illness Initial Comments: This is a 44-year-old female presents today for evaluation of abdominal pain. Patient states feels just like her prior history of ulcers, gastritis. Patient's recent history is complicated by having a hysterectomy patient doesn't believe that the pain is related to that. She has no fevers. No active nausea and vomiting. She is passing stool without difficulty. MD Complaint: abdominal pain, other (ulcers) -: days(s) Location: diffuse Migration to: epigastric Severity: severe Severity scale (1-10): 8 Quality: stabbing Consistency: constant Improves With: nothing Worsens With: eating, vomiting Associated Symptoms: nausea - Related Data Home Medications Medication Instructions Recorded Confirmed Aspirin/Acetaminophen/Caffeine 2 each PO DIRECTED PRN 04/26/20 04/26/20 [Excedrin Migraine Caplet] Omeprazole [PriLOSEC] 20 mg PO HS 04/26/20 04/26/20 Zinc Gummie 2 tab PO HS 04/26/20 04/26/20 Previous Rx's Medication Instructions Recorded HYDROcodone/APAP 5-325MG [[place] 1 tab PO Q4HR PRN #30 tab 05/05/20 5-325] Ibuprofen [Motrin] 600 mg PO Q6HR PRN #30 tab 05/05/20 Allergies Allergy/AdvReac Type Severity Reaction Status Date / Time No Known Allergies Allergy Verified 05/06/20 03:47 Review of Systems ROS Statement: Those systems with pertinent positive or pertinent negative responses have been documented in the HPI. ROS Other: All systems not noted in ROS Statement are negative. Past Medical History Past Medical History: Fibromyalgia, GERD/Reflux Additional Past Medical History / Comment(s): peptic ulcers, migraines, anemia, History of Any Multi-Drug Resistant Organisms: None Reported Past Surgical History: Adenoidectomy, Bariatric Surgery, Section, Cholecystectomy, Ear Surgery, Hysterectomy, Orthopedic Surgery, Tonsillectomy, Uterine Ablation Additional Past Surgical History / Comment(s): PITO EN Y-2007, man carpal tunnel, C/S x 2 Past Anesthesia/Blood Transfusion Reactions: No Reported Reaction Additional Past Anesthesia/Blood Transfusion Reaction / Comment(s): Adopted-FAM VEREN[place] HX UNKNOWN Past Psychological History: No Psychological Hx Reported Smoking Status: Current every day smoker Past Alcohol Use History: None Reported Past Drug Use History: None Reported - Past Family History Mother Family Medical History: Unable to Obtain Additional Family Medical History / Comment(s): Adopted Father Family Medical History: Unable to Obtain General Exam Limitations: no limitations General appearance: alert, in no apparent distress, obese Head exam: Present: atraumatic, normocephalic, normal inspection Eye exam: Present: normal appearance, PERRL, EOMI. Absent: scleral icterus, conjunctival injection, periorbital swelling ENT exam: Present: normal exam, mucous membranes moist Neck exam: Present: normal inspection. Absent: tenderness, meningismus, lymphadenopathy Respiratory exam: Present: normal lung sounds bilaterally. Absent: respiratory distress, wheezes, rales, rhonchi, stridor Cardiovascular Exam: Present: regular rate, normal rhythm, normal heart sounds. Absent: systolic murmur, diastolic murmur, rubs, gallop, clicks GI/Abdominal exam: Present: soft, normal bowel sounds. Absent: distended, tenderness, guarding, rebound, rigid Extremities exam: Present: normal inspection, full ROM, normal capillary refill. Absent: tenderness, pedal edema, joint swelling, calf tenderness Back exam: Present: normal inspection Neurological exam: Present: alert, oriented X3, CN II-XII intact Psychiatric exam: Present: normal affect, normal mood Skin exam: Present: warm, dry, intact, normal color. Absent: rash Course Vital Signs 05/06/20 05/06/20 05/06/20 03:44 04:47 06:02 Temperature 98.5 F Pulse Rate 79 92 74 Respiratory 20 16 16 Rate Blood Pressure 166/103 138/98 158/108 O2 Sat by Pulse 99 97 98 Oximetry - Reevaluation(s) Reevaluation #1: Medical record is reviewed Patient currently has adequate pain control Patient feels comfortable with discharge home Medical Decision Making - Medical Decision Making 44 female DF for evaluation postoperative pain postoperative abdominal pain recent hysterectomy. Patient does believe that she is has ulcerative type pain from a gastritis. She feels better currently and can be discharged - Lab Data Result diagrams: 05/06/20 04:51 05/06/20 04:51 Lab Results 0105/06/20 05/06/20 Range/Units 04:51 04:51 04:51 WBC 9.2 (3.8-10.6) k/uL RBC 3.96 (3.80-5.40) m/uL Hgb 12.1 (11.4-16.0) gm/dL Hct 37.4 (34.0-46.0) % MCV 94.5 (80.0-100.0) fL MCH 30.7 (25.0-35.0) pg MCHC 32.5 (31.0-37.0) g/dL RDW 14.1 (11.5-15.5) % Plt Count 249 (150-450) k/uL MPV 7.1 Neutrophils % 65 % Lymphocytes % 21 % Monocytes % 6 % Eosinophils % 6 % Basophils % 0 % Neutrophils # 6.0 (1.3-7.7) k/uL Lymphocytes # 1.9 (1.0-4.8) k/uL Monocytes # 0.5 (0-1.0) k/uL Eosinophils # 0.5 (0-0.7) k/uL Basophils # 0.0 (0-0.2) k/uL Sodium 138 (137-145) mmol/L Potassium 3.7 (3.5-5.1) mmol/L Chloride 107 (98-107) mmol/L Carbon Dioxide 30 (22-30) mmol/L Anion Gap 1 mmol/L BUN 6 L (7-17) mg/dL Creatinine 0.59 (0.52-1.04) mg/dL Est GFR (CKD-EPI)AfAm >90 (>60 ml/min/1.73 sqM) Est GFR (CKD-EPI)NonAf >90 (>60 ml/min/1.73 sqM) Glucose 99 (74-99) mg/dL Plasma Lactic Acid Ady 1.4 (0.7-2.0) mmol/L Calcium 8.6 (8.4-10.2) mg/dL Phosphorus 3.4 (2.5-4.5) mg/dL Magnesium 1.9 (1.6-2.3) mg/dL Total Bilirubin 0.7 (0.2-1.3) mg/dL AST 597 H (14-36) U/L ALT 305 H (4-34) U/L Alkaline Phosphatase 147 H (38-126) U/L Total Protein 5.7 L (6.3-8.2) g/dL Albumin 3.2 L (3.5-5.0) g/dL Amylase 30 (30-110) U/L Lipase 110 (23-300) U/L - Radiology Data Radiology results: report reviewed (X-ray abdominal series with chest is negative for acute disease), image reviewed Disposition Clinical Impression: Abdominal pain, Postoperative pain Disposition: HOME SELF-CARE Condition: Good Instructions (If sedation given, give patient instructions): Abdominal Pain (ED) Is patient prescribed a controlled substance at d/c from ED?: No Referrals: Nicholas Mijares MD [Primary Care Provider] - 1-2 days
[2020-05-06 04:58] VITALS: RESP 16
[2020-05-06 04:59] LABS: Basophils % (A) 0 %; Eosinophils # (A) 0.5 k/uL (0-0.7); Eosinophils % (A) 6 %; HCT 37.4 % (34.0-46.0); HGB 12.1 gm/dL (11.4-16.0); Lymphocytes # (A) 1.9 k/uL (1.0-4.8); Lymphocytes % (A) 21 %; MCH 30.7 pg (25.0-35.0); MCHC 32.5 g/dL (31.0-37.0); MCV 94.5 fL (80.0-100.0); Mean Platelet Volume 7.1; Monocytes # (A) 0.5 k/uL (0-1.0); Monocytes % (A) 6 %; Neutrophils % (A) 65 %; Platelet Count 249 k/uL (150-450); RBC 3.96 m/uL (3.80-5.40); RDW 14.1 % (11.5-15.5); WBC 9.2 k/uL (3.8-10.6)
[2020-05-06 05:09] LABS: ALT 305 U/L (4-34); AST 597 U/L (14-36); African American GFR (CKD) >90 (>60 ml/min/1.73 sqM); Albumin 3.2 g/dL (3.5-5.0); Alkaline Phosphatase 147 U/L (38-126); Amylase 30 U/L (30-110); Anion Gap 1 mmol/L; Blood Urea Nitrogen 6 mg/dL (7-17); Calcium 8.6 mg/dL (8.4-10.2); Carbon Dioxide 30 mmol/L (22-30); Chloride 107 mmol/L (98-107); Glucose 99 mg/dL (74-99); Lipase 110 U/L (23-300); Magnesium 1.9 mg/dL (1.6-2.3); Non-African American GFR(CKD) >90 (>60 ml/min/1.73 sqM); Phosphorus 3.4 mg/dL (2.5-4.5); Potassium 3.7 mmol/L (3.5-5.1); Sodium 138 mmol/L (137-145); Total Bilirubin 0.7 mg/dL (0.2-1.3); Total Protein 5.7 g/dL (6.3-8.2)
--- NOTE | 2020-05-06 05:42 | XR ---
EXAM: XR Abdomen, 2 Views and XR Chest, 1 View CLINICAL HISTORY: Pain. TECHNIQUE: Frontal view of the chest, frontal view of the abdomen/pelvis and upright or decubitus view of the abdomen. COMPARISON: No relevant prior studies available. FINDINGS: Lungs: Unremarkable. No consolidation. Pleural space: Unremarkable. No pneumothorax. Heart: Unremarkable. No cardiomegaly. Mediastinum: Unremarkable. Intraperitoneal space: No free air. Evidence of prior cholecystectomy. Gastrointestinal tract: Unremarkable. No dilation. Bones/joints: Unremarkable. IMPRESSION: No acute findings on chest, abdomen and pelvis x-rays.
[2020-05-06] MEDS ORDERED: HYDROmorphone 1 MG/ML 1 ML SYRINGE IVP STA (05:49)
[2020-05-06 06:05] VITALS: BP 158/108; PULSE 74
== END 2020-05-06 06:05 | disposition home or self-care (01) ==
LOC: EC 03:43
DX: G89.18 Other acute postprocedural pain (principal); R11.2 Nausea with vomiting, unspecified; R10.9 Unspecified abdominal pain; F17.200 Nicotine dependence, unspecified, uncomplicated; K21.9 Gastro-esophageal reflux disease without esophagitis; M79.7 Fibromyalgia; Z79.899 Other long term (current) drug therapy; Z90.49 Acquired absence of other specified parts of digestive tract; Z86.69 Personal history of other diseases of the nervous system and sense organs; Z90.710 Acquired absence of both cervix and uterus; Z90.89 Acquired absence of other organs
CPT/HCPCS: 80053; 82150; 83605; 83690; 83735; 84100; 85025; 74022; 99284; 96374; 96375 ×3; 96361; J2270; J2405; J1170; C9113

== ENCOUNTER → 2020-06-01 | Outpatient (CLI) | payer OTHER ==
--- NOTE | 2020-06-01 07:31 | US ---
EXAMINATION TYPE: US liver DATE OF EXAM: 06/01/2020 COMPARISON: NONE CLINICAL HISTORY: R94.5 Abn liver function study. abn lft's EXAM MEASUREMENTS: Liver Length: 17.0 cm Gallbladder Wall: Surgically absent CBD: 0.8 cm Right Kidney: 9.2 x 4.2 x 5.7 cm Pancreas: wnl Liver: intercostal imaging appears wnl Gallbladder: Surgically absent Evidence for sonographic Damon's sign: no CBD: Within normal limits Right Kidney: wnl IMPRESSION: 1. Normal right upper quadrant ultrasound
== END | disposition home or self-care (01) ==
LOC: RADUSWWP 06:53
PROVIDERS: ATTEND Family Medicine
DX: R94.5 Abnormal results of liver function studies (principal)
CPT/HCPCS: 76705

== ENCOUNTER 2020-07-04 18:08 | Emergency (ER) | payer OTHER ==
[2020-07-04 18:43] VITALS: BP 136/98; PULSE 79; TEMP 98
--- NOTE | 2020-07-04 19:38 | ED ---
SOB HPI - General Chief Complaint: Shortness of Breath Stated Complaint: CO2 Exposure Time Seen by Provider: 07/04/20 19:11 Source: patient, RN notes reviewed Mode of arrival: ambulatory Limitations: no limitations - History of Present Illness Initial Comments: Patient is a 45-year-old female that presents to emergency by complaining of shortness of breath and possible carbon monoxide exposure. She notes that she is an essential [facility]. She noted that when she went to [employer] truck she noted that her face was swelling up. On the way back she will the windows down and the swelling subsided away. She did call her primary care who told her to come emergency room to get a carbon monoxide test. She denied any current shortness of breath, dyspnea on exertion chest pain headache nausea vomiting diarrhea constipation fever fatigue chills. - Related Data Home Medications Medication Instructions Recorded Confirmed Aspirin/Acetaminophen/Caffeine 2 each PO DIRECTED PRN 04/26/20 04/26/20 [Excedrin Migraine Caplet] Omeprazole [PriLOSEC] 20 mg PO HS 04/26/20 04/26/20 Zinc Gummie 2 tab PO HS 04/26/20 04/26/20 Previous Rx's Medication Instructions Recorded HYDROcodone/APAP 5-325MG [Switzer 1 tab PO Q4HR PRN #30 tab 05/05/20 5-325] Ibuprofen [Motrin] 600 mg PO Q6HR PRN #30 tab 05/05/20 Allergies Allergy/AdvReac Type Severity Reaction Status Date / Time No Known Allergies Allergy Verified 07/04/20 18:43 Review of Systems ROS Statement: Those systems with pertinent positive or pertinent negative responses have been documented in the HPI. ROS Other: All systems not noted in ROS Statement are negative. Past Medical History Past Medical History: Fibromyalgia, GERD/Reflux Additional Past Medical History / Comment(s): peptic ulcers, migraines, anemia, History of Any Multi-Drug Resistant Organisms: None Reported Past Surgical History: Adenoidectomy, Bariatric Surgery, Section, Chol ecystectomy, Ear Surgery, Hysterectomy, Orthopedic Surgery, Tonsillectomy, Uterine Ablation Additional Past Surgical History / Comment(s): PITO EN Y-2007, man carpal tunnel, C/S x 2 Past Anesthesia/Blood Transfusion Reactions: No Reported Reaction Additional Past Anesthesia/Blood Transfusion Reaction / Comment(s): Adopted-F AMILY HX UNKNOWN Past Psychological History: No Psychological Hx Reported Smoking Status: Current every day smoker Past Alcohol Use History: None Reported Past Drug Use History: None Reported - Past Family History Mother Family Medical History: Unable to Obtain Additional Family Medical History / Comment(s): Adopted Father Family Medical History: Unable to Obtain General Exam Limitations: no limitations General appearance: alert, in no apparent distress Head exam: Present: atraumatic, normocephalic, normal inspection Eye exam: Present: normal appearance, PERRL, EOMI. Absent: scleral icterus, conjunctival injection, periorbital swelling ENT exam: Present: normal exam, mucous membranes moist Neck exam: Present: normal inspection. Absent: tenderness, meningismus, lymphadenopathy Respiratory exam: Present: normal lung sounds bilaterally. Absent: respiratory distress, wheezes, rales, rhonchi, stridor Cardiovascular Exam: Present: regular rate, normal rhythm, normal heart sounds. Absent: systolic murmur, diastolic murmur, rubs, gallop, clicks GI/Abdominal exam: Present: soft, normal bowel sounds. Absent: distended, tenderness, guarding, rebound, rigid Extremities exam: Present: normal inspection, full ROM, normal capillary refill. Absent: tenderness, pedal edema, joint swelling, calf tenderness Neurological exam: Present: alert, oriented X3, CN II-XII intact Psychiatric exam: Present: normal affect, normal mood Skin exam: Present: warm, dry, intact, normal color. Absent: rash Course Vital Signs 07/04/20 18:38 Temperature 98.0 F Pulse Rate 79 Respiratory 22 Rate Blood Pressure 136/98 O2 Sat by Pulse 97 Oximetry Medical Decision Making - Medical Decision Making 45-year-old female complaining of shortness of breath possible carbon monoxide exposure. EKG, chest x-ray, labs ordered. Patient's satting at 97 on room air. Labs unremarkable, carbon monoxide levels within normal limits on case discussed with Dr. Jimenez patient to discharge home. Nonrebreather with 100% oxygen ordered., Patient is a smoker. Patient declined nonrebreather without oxygen and just wants to go home to avoid any further exposure. Patient was informed of the risks to refusing treatment and verbalized her understanding. - Lab Data Result diagrams: 07/04/20 19:45 07/04/20 19:45 Lab Results 07/04/20 07/04/20 07/04/20 Range/Units 19:45 19:45 19:45 WBC 9.8 (3.8-10.6) k/uL RBC 4.34 (3.80-5.40) m/uL Hgb 13.8 (11.4-16.0) gm/dL Hct 41.8 (34.0-46.0) % MCV 96.4 (80.0-100.0) fL MCH 31.9 (25.0-35.0) pg MCHC 33.1 (31.0-37.0) g/dL RDW 14.1 (11.5-15.5) % Plt Count 316 (150-450) k/uL MPV 7.0 Neutrophils % 55 % Lymphocytes % 31 % Monocytes % 7 % Eosinophils % 5 % Basophils % 1 % Neutrophils # 5.4 (1.3-7.7) k/uL Lymphocytes # 3.0 (1.0-4.8) k/uL Monocytes # 0.7 (0-1.0) k/uL Eosinophils # 0.5 (0-0.7) k/uL Basophils # 0.1 (0-0.2) k/uL PT 9.8 (9.0-12.0) sec INR 0.9 (<1.2) APTT 24.9 (22.0-30.0) sec VBG pH (7.31-7.41) VBG pCO2 (37-51) mmHg VBG HCO3 (24-28) mmol/L Carbon Monoxide, Quant (<10.0) % Sodium 138 (137-145) mmol/L Potassium 4.4 (3.5-5.1) mmol/L Chloride 106 (98-107) mmol/L Carbon Dioxide 27 (22-30) mmol/L Anion Gap 5 mmol/L BUN 8 (7-17) mg/dL Creatinine 0.72 (0.52-1.04) mg/dL Est GFR (CKD-EPI)AfAm >90 (>60 ml/min/1.73 sqM) Est GFR (CKD-EPI)NonAf >90 (>60 ml/min/1.73 sqM) Glucose 92 (74-99) mg/dL Plasma Lactic Acid Ady (0.7-2.0) mmol/L Calcium 8.9 (8.4-10.2) mg/dL Total Bilirubin 0.3 (0.2-1.3) mg/dL AST 18 (14-36) U/L ALT 11 (4-34) U/L Alkaline Phosphatase 51 (38-126) U/L CK-MB (CK-2) (0.0-2.4) ng/mL Troponin I (0.000-0.034) ng/mL Total Protein 5.9 L (6.3-8.2) g/dL Albumin 3.5 (3.5-5.0) g/dL 07/04/20 07/04/20 07/04/20 Range/Units 19:45 19:45 19:45 WBC (3.8-10.6) k/uL RBC (3.80-5.40) m/uL Hgb (11.4-16.0) gm/dL Hct (34.0-46.0) % MCV (80.0-100.0) fL MCH (25.0-35.0) pg MCHC (31.0-37.0) g/dL RDW (11.5-15.5) % Plt Count (150-450) k/uL MPV Neutrophils % % Lymphocytes % % Monocytes % % Eosinophils % % Basophils % % Neutrophils # (1.3-7.7) k/uL Lymphocytes # (1.0-4.8) k/uL Monocytes # (0-1.0) k/uL Eosinophils # (0-0.7) k/uL Basophils # (0-0.2) k/uL PT (9.0-12.0) sec INR (<1.2) APTT (22.0-30.0) sec VBG pH (7.31-7.41) VBG pCO2 (37-51) mmHg VBG HCO3 (24-28) mmol/L Carbon Monoxide, Quant 5.4 (<10.0) % Sodium (137-145) mmol/L Potassium (3.5-5.1) mmol/L Chloride (98-107) mmol/L Carbon Dioxide (22-30) mmol/L Anion Gap mmol/L BUN (7-17) mg/dL Creatinine (0.52-1.04) mg/dL Est GFR (CKD-EPI)AfAm (>60 ml/min/1.73 sqM) Est GFR (CKD-EPI)NonAf (>60 ml/min/1.73 sqM) Glucose (74-99) mg/dL Plasma Lactic Acid Ady 0.9 (0.7-2.0) mmol/L Calcium (8.4-10.2) mg/dL Total Bilirubin (0.2-1.3) mg/dL AST (14-36) U/L ALT (4-34) U/L Alkaline Phosphatase (38-126) U/L CK-MB (CK-2) 0.3 (0.0-2.4) ng/mL Troponin I <0.012 (0.000-0.034) ng/mL Total Protein (6.3-8.2) g/dL Albumin (3.5-5.0) g/dL 07/04/20 Range/Units 19:45 WBC (3.8-10.6) k/uL RBC (3.80-5.40) m/uL Hgb (11.4-16.0) gm/dL Hct (34.0-46.0) % MCV (80.0-100.0) fL MCH (25.0-35.0) pg MCHC (31.0-37.0) g/dL RDW (11.5-15.5) % Plt Count (150-450) k/uL MPV Neutrophils % % Lymphocytes % % Monocytes % % Eosinophils % % Basophils % % Neutrophils # (1.3-7.7) k/uL Lymphocytes # (1.0-4.8) k/uL Monocytes # (0-1.0) k/uL Eosinophils # (0-0.7) k/uL Basophils # (0-0.2) k/uL PT (9.0-12.0) sec INR (<1.2) APTT (22.0-30.0) sec VBG pH 7.33 (7.31-7.41) VBG pCO2 53 H (37-51) mmHg VBG HCO3 27 (24-28) mmol/L Carbon Monoxide, Quant (<10.0) % Sodium (137-145) mmol/L Potassium (3.5-5.1) mmol/L Chloride (98-107) mmol/L Carbon Dioxide (22-30) mmol/L Anion Gap mmol/L BUN (7-17) mg/dL Creatinine (0.52-1.04) mg/dL Est GFR (CKD-EPI)AfAm (>60 ml/min/1.73 sqM) Est GFR (CKD-EPI)NonAf (>60 ml/min/1.73 sqM) Glucose (74-99) mg/dL Plasma Lactic Acid Ady (0.7-2.0) mmol/L Calcium (8.4-10.2) mg/dL Total Bilirubin (0.2-1.3) mg/dL AST (14-36) U/L ALT (4-34) U/L Alkaline Phosphatase (38-126) U/L CK-MB (CK-2) (0.0-2.4) ng/mL Troponin I (0.000-0.034) ng/mL Total Protein (6.3-8.2) g/dL Albumin (3.5-5.0) g/dL - EKG Data -: EKG Interpreted by Oh EKG shows normal: sinus rhythm Rate: normal EKG Comments: Ventricular rate 61 bpm, NE interval 184 ms, QRS duration 86 ms, QT/QTc 442/444 ms, PRT axis 23/-19/16. Normal sinus rhythm, inferior infarct, age undetermined, anterior infarct, age undetermined, abnormal ECG. - Radiology Data Radiology results: report reviewed, image reviewed Chest x-ray: Normal chest. No change. Disposition Clinical Impression: Shortness of breath Disposition: HOME SELF-CARE Condition: Stable Instructions (If sedation given, give patient instructions): Dyspnea (ED) Additional Instructions: Please return to the Emergency Department if symptoms worsen or any other concerns. Follow-up with primary care in 2-4 days. Avoid any shortness activity Is patient prescribed a controlled substance at d/c from ED?: No Referrals: Nicholas Mijares MD [Primary Care Provider] - 1-2 days Time of Disposition: 21:32
[2020-07-04 19:56] LABS: Basophils # (A) 0.1 k/uL (0-0.2); Basophils % (A) 1 %; Eosinophils # (A) 0.5 k/uL (0-0.7); Eosinophils % (A) 5 %; HCT 41.8 % (34.0-46.0); HGB 13.8 gm/dL (11.4-16.0); Lymphocytes % (A) 31 %; MCH 31.9 pg (25.0-35.0); MCHC 33.1 g/dL (31.0-37.0); MCV 96.4 fL (80.0-100.0); Monocytes # (A) 0.7 k/uL (0-1.0); Monocytes % (A) 7 %; Neutrophils # (A) 5.4 k/uL (1.3-7.7); Neutrophils % (A) 55 %; Platelet Count 316 k/uL (150-450); RBC 4.34 m/uL (3.80-5.40); RDW 14.1 % (11.5-15.5); WBC 9.8 k/uL (3.8-10.6)
[2020-07-04 19:58] LABS: VBG PH 7.33 (7.31-7.41)
[2020-07-04 20:06] LABS: INR 0.9 (<1.2); Partial Thromboplastin Time 24.9 sec (22.0-30.0); Prothrombin Time 9.8 sec (9.0-12.0)
[2020-07-04 20:07] LABS: ALT 11 U/L (4-34); AST 18 U/L (14-36); African American GFR (CKD) >90 (>60 ml/min/1.73 sqM); Albumin 3.5 g/dL (3.5-5.0); Alkaline Phosphatase 51 U/L (38-126); Anion Gap 5 mmol/L; Blood Urea Nitrogen 8 mg/dL (7-17); Calcium 8.9 mg/dL (8.4-10.2); Carbon Dioxide 27 mmol/L (22-30); Chloride 106 mmol/L (98-107); Glucose 92 mg/dL (74-99); Non-African American GFR(CKD) >90 (>60 ml/min/1.73 sqM); Potassium 4.4 mmol/L (3.5-5.1); Sodium 138 mmol/L (137-145); Total Bilirubin 0.3 mg/dL (0.2-1.3); Total Protein 5.9 g/dL (6.3-8.2)
--- NOTE | 2020-07-04 20:21 | XR ---
EXAMINATION TYPE: XR chest 2V DATE OF EXAM: 07/04/2020 COMPARISON: 05/06/2020 HISTORY: Chest pain TECHNIQUE: FINDINGS: Heart and mediastinum are normal. Lungs are clear. Diaphragm is normal. Bony thorax appears normal. IMPRESSION: Normal chest. No change.
[2020-07-04 20:24] LABS: Creatine Kinase MB 0.3 ng/mL (0.0-2.4); Troponin I <0.012 ng/mL (0.000-0.034)
[2020-07-04 22:24] VITALS: RESP 16
[2020-07-07 19:40] LABS: LD Isoenzymes 1 23 % (19-38); LD Isoenzymes 2 35 % (30-43); LD Isoenzymes 3 24 % (16-26); LD Isoenzymes 4 9 % (3-12); LD Isoenzymes 5 9 % (3-14); Lactacte Dehydrogenase(LD) ISO 123 U/L (100-200)
== END 2020-07-04 21:46 | disposition home or self-care (01) ==
LOC: EC 18:08
DX: R06.02 Shortness of breath (principal); M79.7 Fibromyalgia; K21.9 Gastro-esophageal reflux disease without esophagitis; F17.200 Nicotine dependence, unspecified, uncomplicated; Z79.1 Long term (current) use of non-steroidal anti-inflammatories (NSAID)
CPT/HCPCS: 36415; 71046; 80053; 82375; 82553; 82803; 83605; 83625; 84484; 85025; 85610; 85730; 93005; 99285

== ENCOUNTER 2021-09-20 18:53 | Emergency (ER) | payer OTHER ==
[2021-09-20 18:59] VITALS: BP 161/98; PULSE 68; RESP 16; TEMP 98
== END 2021-09-20 19:52 | disposition left against medical advice (07) ==
LOC: EC 18:53
DX: Z53.21 Procedure and treatment not carried out due to patient leaving prior to being seen by health care provider (principal); R07.9 Chest pain, unspecified
CPT/HCPCS: 93005; 99499

== ENCOUNTER → 2023-08-15 | Outpatient (CLI) | payer OTHER | LOC: RADNMMAIN 09:05 | PROVIDERS: ATTEND Family Medicine | DX: Z53.9 Procedure and treatment not carried out, unspecified reason (principal) ==

== ENCOUNTER → 2023-08-20 | Outpatient (CLI) | payer OTHER ==
--- NOTE | 2023-08-21 06:43 | CA ---
Transthoracic Echo Report Name: Della Vallejo Age: 48 Gender: F : 1975 Exam Date: 08/20/2023 16:36 Exam Location: [facility] Ht (in): 65 Wt (lb): 208 Ordering Physician: Nicholas Mijares MD Attending/Referring Phys: [id number], Dyllan [employer] Worker Michelle Harmon, RALPH Procedure CPT: Indications: R00.2 palpitations Cardiac Hx: Technical Quality: Fair Contrast 1: Total Dose (mL): Contrast 2: Total Dose (mL): MEASUREMENTS (Male / Female) Normal Values 2D ECHO LV Diastolic Diameter PLAX 2.9 cm 4.2 - 5.9 / 3.9 - 5.3 cm LV Systolic Diameter PLAX 2.0 cm IVS Diastolic Thickness 1.4 cm 0.6 - 1.0 / 0.6 - 0.9 cm LVPW Diastolic Thickness 1.3 cm 0.6 - 1.0 / 0.6 - 0.9 cm LV Relative Wall Thickness 0.9 RV Internal Dim ED PLAX 2.9 cm LA Volume 43.3 cm??? 18 - 58 / 22 - 52 cm??? LA Volume Index 20.5 cm???/m??? 16 - 28 cm???/m??? M-MODE Aortic Root Diameter MM 2.9 cm LA Systolic Diameter MM 3.6 cm LA Ao Ratio MM 1.3 AV Cusp Separation MM 2.2 cm DOPPLER AV Peak Velocity 114.6 cm/s AV Peak Gradient 5.3 mmHg AV Mean Velocity 77.2 cm/s AV Mean Gradient 2.7 mmHg AV Velocity Time Integral 20.3 cm LVOT Peak Velocity 84.7 cm/s LVOT Peak Gradient 2.9 mmHg LVOT Velocity Time Integral 17.1 cm MV Area PHT 3.6 cm??? Mitral E Point Velocity 59.4 cm/s Mitral A Point Velocity 80.9 cm/s Mitral E to A Ratio 0.7 MV Deceleration Time 211.9 ms MV E' Velocity 3.7 cm/s Mitral E to MV E' Ratio 16.1 TR Peak Velocity 185.2 cm/s TR Peak Gradient 13.7 mmHg Right Ventricular Systolic Press 18.3 mmHg FINDINGS Left Ventricle Moderately increased left ventricular wall thickness. Left ventricular cavity size normal. Normal left ventricular systolic function with no obvious regional wall motion abnormalities. Left ventricular ejection fraction is estimated at 55-60 %. Grade 1 diastolic dysfunction. Right Ventricle Normal right ventricular size and function. Right ventricular systolic pressure within normal limits. Right Atrium Normal right atrial size. Left Atrium Normal left atrial size. Interatrial septal aneurysm. Mitral Valve Structurally normal mitral valve. Mild mitral annular calcification. Trace mitral regurgitation. Aortic Valve Trileaflet aortic valve. No aortic valve stenosis or regurgitation. Tricuspid Valve Structurally normal tricuspid valve. Mild tricuspid regurgitation. Pulmonic Valve Structurally normal pulmonic valve. Trace pulmonic regurgitation. Pericardium No pericardial effusion. Aorta Normal size aortic root and proximal ascending aorta. CONCLUSIONS Normal LV systolic function No significant valvular abnormalities No pericardial effusion Normal pulmonary artery systolic pressure Previewed by: Dr. Grady Livingston MD (Electronically Signed) Final Date: 21 Aug 2023 06:42
== END | disposition home or self-care (01) ==
LOC: RADECHMAIN 16:13
PROVIDERS: ATTEND Family Medicine
DX: R00.2 Palpitations (principal)
CPT/HCPCS: 93306

== ENCOUNTER 2024-01-05 11:17 | Day surgery (SDC) | payer OTHER ==
[2024-01-05 11:38] VITALS: TEMP 97
[2024-01-05] MEDS: IV FLUID CONTINUATION 1,000 ML IV ONE (11:52)
[2024-01-05] MEDS: LACTATED RINGERS 1,000 ML IV SCH (11:53)
[2024-01-05] MEDS ORDERED: PROPOFOL 10 MG/ML 20 ML VIAL IV ONE (13:18)
--- NOTE | 2024-01-05 13:39 | P.OP ---
Date of Procedure: 01/05/24 Preoperative Diagnosis: Hemorrhoids Postoperative Diagnosis: Internal/external hemorrhoids Procedure(s) Performed: Colonoscopy Anesthesia: MAC Surgeon: Jacky Figueroa Pathology: none sent Condition: stable Disposition: PACU Description of Procedure: The patient was placed on the endoscopy table in the lateral position. He received IV sedation. Digital rectal exam was performed which revealed no abnormalities. The flexible colonoscope was then placed patient anus passed throughout the entire colon. The ileocecal valve was visualized. The cecum, ascending and transverse colon appeared normal. The descending and sigmoid colon appeared normal. Scope was back to the rectum this was normal. Scope withdrawn to the anus and internal/external hemorrhoids were noted.
[2024-01-05 13:57] VITALS: BP 127/86; PULSE 75; RESP 18
== END 2024-01-05 14:20 | disposition home or self-care (01) ==
LOC: ORWHC2ENDO 11:17
PROVIDERS: ATTEND Surgery
DX: K64.4 Residual hemorrhoidal skin tags (principal); K64.8 Other hemorrhoids; G43.909 Migraine, unspecified, not intractable, without status migrainosus; M79.7 Fibromyalgia; K21.9 Gastro-esophageal reflux disease without esophagitis; I25.10 Atherosclerotic heart disease of native coronary artery without angina pectoris; F17.210 Nicotine dependence, cigarettes, uncomplicated; Z79.899 Other long term (current) drug therapy; Z98.890 Other specified postprocedural states; Z90.710 Acquired absence of both cervix and uterus
CPT/HCPCS: 45378; J2704

== ENCOUNTER 2024-01-06 06:09 | Day surgery (SDC) | payer OTHER ==
[~2024-01-06 06:09] MED LIST changes: -DEXAMETHASONE SOD PHOSPHATE 10 MG/ML 1 ML VIAL IV ONE; -LACTATED RINGERS 1,000 ML IV SCH; +LIDOCAINE 1% (10MG/ML) FOR IV START INTRADERMA PRN; -MIDAZOLAM 2 MG/2 ML VIAL IV PRN; -ONDANSETRON 4 MG/2 ML VIAL IVP ONE; -SCOPOLAMINE 1.5MG/72HR PATCH TRANSDERM ONE; -fentaNYL (PF) 50 MCG/ML 2 ML AMP IV PRN
[2024-01-06] MEDS ORDERED: MIDAZOLAM 2 MG/2 ML VIAL IV PRN (07:00)
[2024-01-06] MEDS ORDERED: HYDROmorphone 0.5 MG/0.5 ML SYRINGE IVP PRN (07:00)
[2024-01-06] MEDS: DEXAMETHASONE SOD PHOSPHATE 4 MG/ML 1 ML VIAL IV ONE (07:01)
[2024-01-06] MEDS: ACETAMINOPHEN TAB 500 MG TAB PO PRN (07:01)
[2024-01-06] MEDS: HEPARIN SODIUM,PORCINE 5,000 UNIT/ML 1 ML VIAL SQ PRN (07:01)
[2024-01-06] MEDS: ONDANSETRON 4 MG/2 ML VIAL IVP ONE (07:01)
[2024-01-06] MEDS: LACTATED RINGERS 1,000 ML IV SCH (07:02)
[2024-01-06] MEDS: IV FLUID CONTINUATION 1,000 ML IV ONE (07:06)
[2024-01-06] MEDS: LIDOCAINE 1%-EPI 1:100,000 20 ML VIAL SQ ONE ×3 (07:32→08:02)
[2024-01-06] MEDS ORDERED: LIDOCAINE 1% INJ 10MG/ML (20 ML MDV) ONE (07:35)
[2024-01-06] MEDS ORDERED: fentaNYL (PF) 50 MCG/ML 2 ML AMP ONE (07:35)
[2024-01-06] MEDS ORDERED: MIDAZOLAM 2 MG/2 ML VIAL ONE (07:35)
[2024-01-06] MEDS ORDERED: PROPOFOL 10 MG/ML 20 ML VIAL IV ONE (07:35)
[2024-01-06] MEDS ORDERED: SUCCINYLCHOLINE CHLORIDE 200 MG/10 ML VIAL IV ONE (07:35)
[2024-01-06] MEDS ORDERED: KETOROLAC 15 MG/ML 1 ML VIAL ONE (07:35)
[2024-01-06 08:22] VITALS: TEMP 96.8
--- NOTE | 2024-01-06 08:30 | P.OP ---
Date of Procedure: 01/06/24 Preoperative Diagnosis: Internal/external hemorrhoids Postoperative Diagnosis: Internal/external hemorrhoids Procedure(s) Performed: Hemorrhoidectomy Anesthesia: ALEM Surgeon: Jacky Figueroa Estimated Blood Loss (ml): 5 Pathology: other (Hemorrhoids) Condition: stable Disposition: PACU Description of Procedure: The patient was placed on the operative table in the supine position. She received general endotracheal tube anesthesia. She was then placed in the prone jackknife position. Her anus was prepped and draped in sterile fashion. The anus were examined. There was internal/external hemorrhoids noted. The anal tractors placed anus. The left lateral hemorrhoidal column was grasped. Allis clamps. Then using the harmonic scissors the hemorrhoidectomy was performed. Next the right anterior and right posterior hemorrhoidal columns were excised identical fashion. The wound bed for hemostasis. Several small bleeding points were coagulated. The Gelfoam was placed the anus. Patient Toller procedure well. He was sent to recovery in stable condition.
[2024-01-06] MEDS: KETOROLAC 15 MG/ML 1 ML VIAL IVP STA (09:13)
[2024-01-06 10:18] VITALS: BP 125/83; PULSE 77; RESP 18
== END 2024-01-06 10:31 | disposition home or self-care (01) ==
LOC: OR 06:09
PROVIDERS: ATTEND Surgery
DX: K64.3 Fourth degree hemorrhoids (principal); K64.4 Residual hemorrhoidal skin tags; M79.7 Fibromyalgia; G43.909 Migraine, unspecified, not intractable, without status migrainosus; K21.9 Gastro-esophageal reflux disease without esophagitis; I25.2 Old myocardial infarction; Z79.899 Other long term (current) drug therapy; Z90.710 Acquired absence of both cervix and uterus; Z90.49 Acquired absence of other specified parts of digestive tract; Z98.890 Other specified postprocedural states; Z87.891 Personal history of nicotine dependence
CPT/HCPCS: 88304

== ENCOUNTER 2024-01-08 00:23 | Emergency (ER) | payer OTHER ==
[2024-01-08] MEDS: MAG HYDROX/AL HYDROX/SIMETH 30 ML, HYOSCYAMINE ELIXIR 10 ML, LIDOCAINE VISCOUS 2% 10 ML PO STA ×2 (00:51→01:19)
--- NOTE | 2024-01-08 01:20 | ED ---
Abdominal Pain HPI - General Chief Complaint: Abdominal Pain Stated Complaint: Abdominal Pain Time Seen by Provider: 01/08/24 00:46 Source: patient Mode of arrival: ambulatory Limitations: no limitations - History of Present Illness Initial Comments: Della is a 48yo F with PMH of gastric bypass and ulcers. Patient reports that after stressful events her ulcers tend to act up. PAtient had colonoscopy on Friday and hemorrhoidectomy on Friday. She attempted to take PO narcotics today due to the rectal pain and developed nausea and vomiting followed by severe burning and stabbing abdominal pain. Pain is similar to previous episodes of ulcer pain. Patient reports when she has had to come to the ER in the past for this she is needed 2 doses of GI cocktail that usually resolves her pain. Patient states she usually takes omeprazole 40 mg daily for her ulcers but has not taken any medications since Friday due to her procedures this week. - Related Data Home Medications Medication Instructions Recorded Confirmed Aspirin/Acetaminophen/Caffeine 2 each PO DIRECTED PRN 04/26/20 01/06/24 [Excedrin Migraine Caplet] Amlodipine Besylate/Valsartan 1 tab PO QAM 12/31/23 01/06/24 [Amlodipine Besylate/Valsartan 10-160 mg] Loratadine [Claritin] 10 mg PO DAILY 12/31/23 01/06/24 Previous Rx's Medication Instructions Recorded Docusate [Colace] 100 mg PO BID #20 capsule 01/06/24 Ibuprofen [Motrin] 600 mg PO Q6HR PRN #40 tab 01/06/24 oxyCODONE HCL [OxyIR] 5 mg PO Q6H PRN 3 Days #20 tab 01/06/24 Sucralfate [Carafate] 1 gm PO ACHS 30 Days #120 tablet 01/08/24 Allergies Allergy/AdvReac Type Severity Reaction Status Date / Time No Known Allergies Allergy Verified 01/06/24 06:40 Review of Systems ROS Statement: Those systems with pertinent positive or pertinent negative responses have been documented in the HPI. ROS Other: All systems not noted in ROS Statement are negative. Past Medical History Past Medical History: Fibromyalgia, GERD/Reflux Additional Past Medical History / Comment(s): peptic ulcers, migraines, anemia. HEMMOROIDS History of Any Multi-Drug Resistant Organisms: None Reported Past Surgical History: Adenoidectomy, Bariatric Surgery, Section, Cholecystectomy, Ear Surgery, Hysterectomy, Orthopedic Surgery, Tonsillectomy, Uterine Ablation Additional Past Surgical History / Comment(s): PITO EN Y-2007, man carpal tunnel, C/S x 2 Past Anesthesia/Blood Transfusion Reactions: No Reported Reaction Additional Past Anesthesia/Blood Transfusion Reaction / Comment(s): Adopted- FAMILY HX UNKNOWN Past Psychological History: No Psychological Hx Reported Smoking Status: Current every day smoker - Past Family History Mother Family Medical History: Unable to Obtain Additional Family Medical History / Comment(s): Adopted Father Family Medical History: Unable to Obtain General Exam - General Exam Comments Initial Comments: Physical Exam GENERAL: Dressed secondary to pain HENT: Normocephalic, Atraumatic. EYES: PERRL, EOMI PULMONARY: Tachypnea hyperventilating No respiratory Distress CARDIOVASCULAR: Regular rate and rhythm ABDOMEN: Soft nonperitoneal SKIN: Skin is clear with no lesions or rashes and otherwise unremarkable. : Deferred NEUROLOGIC: Patient is alert and oriented x3. Moving all extremities spontaneously MUSCULOSKELETAL: Normal extremities with adequate strength and full range of motion. No lower extremity swelling or edema. No calf tenderness. PSYCHIATRIC: Normal psychiatric evaluation. Limitations: no limitations Course Vital Signs 01/08/24 01/08/24 00:25 02:17 Pulse Rate 83 85 Respiratory 36 H 18 Rate Blood Pressure 153/102 156/97 O2 Sat by Pulse 99 97 Oximetry Medical Decision Making - Medical Decision Making Was pt. sent in by a medical professional or institution (, PA, PRACTICAL NURSING FACULTY, urgent care, hospital, or correction...) When possible be specific @ -No Did you speak to anyone other than the patient for history (EMS, parent, family, police, friend...)? What history was obtained from this source @ -No Did you review nursing and triage notes (agree or disagree)? Why? @ -I reviewed and agree with nursing and triage notes Were old charts reviewed (outside hosp., previous admission, EMS record, old EKG , old radiological studies, urgent care reports/EKG's, correction records)? Report findings @ -'s ER visits were reviewed Differential Diagnosis (chest pain, altered mental status, abdominal pain women, abdominal pain men, vaginal bleeding, weakness, fever, dyspnea, syncope, headache, dizziness, GI bleed, back pain, seizure, CVA, palpatations, mental health)? @ -Differential Abdominal Pain Women: Appendicitis, Cholecystitis, diverticulosis, ischemic bowel, pancreatitis, hepatitis, UTI, gastroenteritis, AAA, incarcerated hernia, bowel obstruction, constipation, inflammatory bowel, hepatitis, peptic ulcer disease, splenic infarction, perforated viscus, vulvitis, ovarian torsion, PID, kidney stone, placenta abruption, this is not meant to be an all-inclusive list EKG interpreted by me (3pts min.). @ -As above X-rays interpreted by me (1pt min.). @ -Abdominal x-ray with no free air no air-fluid levels or evidence of small bowel obstruction CT interpreted by me (1pt min.). @ -None done U/S interpreted by me (1pt. min.). @ -None done What testing was considered but not performed or refused? (CT, X-rays, U/S, labs)? Why? @ -Labs were considered but patient declined as or IV placement What meds were considered but not given or refused? Why? @ -IV fluids and IV PPIs were considered but patient declined IV placement Did you discuss the management of the patient with other professionals (professionals i.e. , PA, PRACTICAL NURSING FACULTY, lab, RT, psych nurse, manager social media, broadcasting equipment mechanic, teacher, sustainability officer, case mgr)? Give summary @ -No Was smoking cessation discussed for >3mins.? @ -No Was critical care preformed (if so, how long)? @ -No Were there social determinants of health that impacted care today? How? (Homelessness, low income, unemployed, alcoholism, drug addiction, trans portation, low edu. Level, literacy, decrease access to med. care, [place] [facility], rehab)? @ -No Was there de-escalation of care discussed even if they declined (Discuss DNR or withdrawal of care, Hospice)? DNR status @ -No What co-morbidities impacted this encounter? (DM, HTN, Smoking, COPD, CAD, Cancer, CVA, ARF, Chemo, Hep., AIDS, mental health diagnosis, sleep apnea, morbid obesity)? @ -None Was patient admitted / discharged? Hospital course, mention meds given and route, prescriptions, significant lab abnormalities, going to OR and other pertinent info. @ -Patient was seen and evaluated history is obtained from patient patient reports she has burning epigastric pain consistent with previous episodes of gastritis or irritation of her ulcers that happens when she has surgery. Patient states that in the past she has read received 2 doses of GI cocktail and this usually resolves her pain. Patient was given dose in 30 minutes later given a second dose she had significant improvement in her pain stated that she felt better but she was worried the pain would come back and wanted to be discharged home with an oral GI cocktail. I advised the patient that 2 doses was adequate third dose is not appropriate nor safe. Patient's x-ray has no signs of perforation or obstruction. Patient is feeling much better she declined IV placement her meds and will be discharged home condition with plan for continued outpatient follow-up. Undiagnosed new problem with uncertain prognosis? @ -No Drug Therapy requiring intensive monitoring for toxicity (Heparin, Nitro, Insulin, Cardizem)? @ -No Were any procedures done? @ -No Diagnosis/symptom? @ -Epigastric abdominal pain Acute, or Chronic, or Acute on Chronic? @ -Acute, recurrent Uncomplicated (without systemic symptoms) or Complicated (systemic symptoms)? @ -Default Side effects of treatment? @ -No Exacerbation, Progression, or Severe Exacerbation? @ -Exacerbation Poses a threat to life or bodily function? How? (Chest pain, [place], [place], pneumonia, PE, COPD, DKA, ARF, appy, cholecystitis, CVA, Diverticulitis, Homicidal, Suicidal, threat to staff... and all critical care pts) @ -Unlikely Disposition Clinical Impression: Gastritis Disposition: HOME SELF-CARE Condition: Stable Prescriptions: Sucralfate [Carafate] 1 gm PO ACHS 30 Days #120 tablet Is patient prescribed a controlled substance at d/c from ED?: No Referrals: Nicholas Mijares MD [Primary Care Provider] - 1-2 days
[2024-01-08 02:18] VITALS: BP 156/97; PULSE 85; RESP 18
--- NOTE | 2024-01-08 02:23 | XR ---
EXAM: XR Abdomen, left decubitus View CLINICAL HISTORY: abdominal pain hx ulcers r/o perf TECHNIQUE: Left decubitus view of the abdomen/pelvis. COMPARISON: CT abdomen and pelvis from 04/02/2019, abdominal radiographs from 05/06/20 FINDINGS: Intraperitoneal space: No free air identified. Gastrointestinal tract: moderate amount of stool in the colon. No dilation. Organs: Cholecystectomy clips. Bones/joints: No fracture or dislocation. IMPRESSION: No free air identified. If this remains a concern, CT may help to further evaluate
== END 2024-01-08 02:36 | disposition home or self-care (01) ==
LOC: EC 00:23
CPT/HCPCS: 74018; 99284

== ENCOUNTER 2024-03-01 08:42 | Inpatient (IN) | payer OTHER ==
[2024-03-01] MEDS: IV FLUID CONTINUATION 1,000 ML IV ONE (09:16)
[2024-03-01 09:40] LABS: Basophils # (A) 0.1 k/uL (0-0.2); Basophils % (A) 1 %; Eosinophils # (A) 0.3 k/uL (0-0.7); Eosinophils % (A) 3 %; HCT 39.9 % (34.0-46.0); HGB 12.9 gm/dL (11.4-16.0); Lymphocytes # (A) 2.3 k/uL (1.0-4.8); Lymphocytes % (A) 25 %; MCHC 32.3 g/dL (31.0-37.0); MCV 92.8 fL (80.0-100.0); Mean Platelet Volume 6.6; Monocytes # (A) 0.6 k/uL (0-1.0); Monocytes % (A) 6 %; Neutrophils # (A) 5.9 k/uL (1.3-7.7); Neutrophils % (A) 63 %; Platelet Count 357 k/uL (150-450); RBC 4.29 m/uL (3.80-5.40); RDW 14.2 % (11.5-15.5); WBC 9.4 k/uL (3.8-10.6)
[2024-03-01] MEDS: ACETAMINOPHEN TAB 500 MG TAB PO PRN (09:46)
[2024-03-01] MEDS: ONDANSETRON 4 MG/2 ML VIAL IVP ONE (09:48)
[2024-03-01] MEDS: DEXAMETHASONE SOD PHOSPHATE 4 MG/ML 1 ML VIAL IV ONE (09:49)
[2024-03-01] MEDS: LACTATED RINGERS 1,000 ML IV SCH ×2 (09:49→16:49)
[2024-03-01 09:57] LABS: ALT 19 U/L (4-34); African American GFR (CKD) >90 (>60 ml/min/1.73 sqM); Anion Gap 6 mmol/L; Blood Urea Nitrogen 10 mg/dL (7-17); Calcium 8.9 mg/dL (8.4-10.2); Carbon Dioxide 29 mmol/L (22-30); Chloride 104 mmol/L (98-107); Glucose 90 mg/dL (74-99); Non-African American GFR(CKD) >90 (>60 ml/min/1.73 sqM); Sodium 139 mmol/L (137-145); Total Bilirubin 0.6 mg/dL (0.2-1.3)
[2024-03-01 10:17] LABS: AST 28 U/L (14-36); Albumin 4.1 g/dL (3.5-5.0); Potassium 4.6 mmol/L (3.5-5.1); Total Protein 7.2 g/dL (6.3-8.2)
[2024-03-01 10:18] LABS: Alkaline Phosphatase 56 U/L (38-126)
[2024-03-01] MEDS: MIDAZOLAM 2 MG/2 ML VIAL IV ONE (10:43)
[2024-03-01] MEDS: HEPARIN SODIUM,PORCINE 5,000 UNIT/ML 1 ML VIAL SQ PRN (10:55)
--- NOTE | 2024-03-01 10:58 | P.GSHP ---
History of Present Illness H&P Date: 03/01/24 Chief Complaint: Panniculus Is a 48-year-old female who presents today for panniculectomy. 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 Patient is where the risk of surgery including infection, hematoma seroma. As well as the possible need for cosmesis. Patient understands this is not a cosmetic surgery. Past Medical History Past Medical History: Fibromyalgia, GERD/Reflux Additional Past Medical History / Comment(s): peptic ulcers, migraines, anemia. HEMMOROIDS, History of Any Multi-Drug Resistant Organisms: None Reported Past Surgical History: Adenoidectomy, Bariatric Surgery, Section, Cholecystectomy, Ear Surgery, Hysterectomy, Orthopedic Surgery, Tonsillectomy, Uterine Ablation Additional Past Surgical History / Comment(s): PITO EN Y-2007, man carpal tunnel, C/S x 2 Past Anesthesia/Blood Transfusion Reactions: No Reported Reaction Additional Past Anesthesia/Blood Transfusion Reaction / Comment(s): Adopted- FAMILY HX UNKNOWN Smoking Status: Current every day smoker - Past Family History Mother Family Medical History: Unable to Obtain Additional Family Medical History / Comment(s): Adopted Father Family Medical History: Unable to Obtain Medications and Allergies Home Medications Medication Instructions Recorded Confirmed Type Aspirin/Acetaminophen/Caffeine 2 each PO DIRECTED PRN 04/26/20 03/01/24 History [Excedrin Migraine Caplet] Amlodipine Besylate/Valsartan 1 tab PO QAM 12/31/23 03/01/24 History [Amlodipine Besylate/Valsartan 10-160 mg] hydrOXYzine HCL [Hydroxyzine HCl] 25 mg PO HS PRN 02/25/24 03/01/24 History Amphetamine Sulfate 20 mg PO BID 03/01/24 03/01/24 History Atorvastatin [Lipitor] 10 mg PO DAILY 03/01/24 03/01/24 History Ibuprofen [Motrin] 800 mg PO Q8HR PRN 03/01/24 03/01/24 History Loratadine [Claritin] 10 mg PO DAILY PRN 03/01/24 03/01/24 History Allergies Allergy/AdvReac Type Severity Reaction Status Date / Time No Known Allergies Allergy Verified 03/01/24 09:10 Surgical - Exam Vital Signs Temp Pulse Resp BP Pulse Ox 96.5 F L 72 16 138/92 100 03/01/24 09:23 03/01/24 09:23 03/01/24 09:23 03/01/24 09:23 03/01/24 09:23 - General well developed, well nourished, no distress - Eyes PERRL - ENT normal pinna - Neck no masses - Respiratory normal expansion - Cardiovascular Rhythm: regular - Abdomen Well-formed panniculus Abdomen: soft, non tender Results - Labs 03/01/24 09:30 03/01/24 09:30 Diabetes panel 03/01/24 Range/Units 09:30 Sodium 139 (137-145) mmol/L Potassium 4.6 (3.5-5.1) mmol/L Chloride 104 (98-107) mmol/L Carbon Dioxide 29 (22-30) mmol/L BUN 10 (7-17) mg/dL Creatinine 0.64 (0.52-1.04) mg/dL Glucose 90 (74-99) mg/dL Calcium 8.9 (8.4-10.2) mg/dL AST 28 (14-36) U/L ALT 19 (4-34) U/L Alkaline Phosphatase 56 (38-126) U/L Total Protein 7.2 (6.3-8.2) g/dL Albumin 4.1 (3.5-5.0) g/dL Calcium panel 03/01/24 Range/Units 09:30 Calcium 8.9 (8.4-10.2) mg/dL Albumin 4.1 (3.5-5.0) g/dL Pituitary panel 03/01/24 Range/Units 09:30 Sodium 139 (137-145) mmol/L Potassium 4.6 (3.5-5.1) mmol/L Chloride 104 (98-107) mmol/L Carbon Dioxide 29 (22-30) mmol/L BUN 10 (7-17) mg/dL Creatinine 0.64 (0.52-1.04) mg/dL Glucose 90 (74-99) mg/dL Calcium 8.9 (8.4-10.2) mg/dL Adrenal panel 03/01/24 Range/Units 09:30 Sodium 139 (137-145) mmol/L Potassium 4.6 (3.5-5.1) mmol/L Chloride 104 (98-107) mmol/L Carbon Dioxide 29 (22-30) mmol/L BUN 10 (7-17) mg/dL Creatinine 0.64 (0.52-1.04) mg/dL Glucose 90 (74-99) mg/dL Calcium 8.9 (8.4-10.2) mg/dL Total Bilirubin 0.6 (0.2-1.3) mg/dL AST 28 (14-36) U/L ALT 19 (4-34) U/L Alkaline Phosphatase 56 (38-126) U/L Total Protein 7.2 (6.3-8.2) g/dL Albumin 4.1 (3.5-5.0) g/dL Assessment and Plan Plan: Panniculus. Will perform panniculectomy.
--- NOTE | 2024-03-01 10:59 | P.ANPRN ---
Procedure Note - Anesthesia - Nerve Block Performed Bilateral Erector Spinae Single Time Out Performed: Yes Date of Procedure: 03/01/24 Procedure Start Time: 10:43 Procedure Stop Time: 10:48 Location of Patient: PreOp Indication: Acute Post-Operative Pain, Analgesia, Requested by Surgeon Sedation Type: Sedate with meaningful contact maintained Preparation: Sterile Prep Position: Prone Needle Types: Pajunk Needle Gauge: 21 Ultrasound used to visualize needle placement: Yes Ultrasound used to observe medication spread: Yes Injectate: 0.5% Ropivacaine (see comment for volume) (Ropiv 20ml+[id number]---Wvhe side. T10 needle level.) Blood Aspirated: No Pain Paresthesia on Injection Noted: No Resistance on Injection: Normal Image Stored and Saved: Yes Events: Uneventful and Well Tolerated
[2024-03-01] MEDS ORDERED: ROCURONIUM 10 MG/ML (5 ML VIAL) IV ONE (11:18)
[2024-03-01] MEDS ORDERED: DEXAMETHASONE SOD PHOSPHATE 4 MG/ML 1 ML VIAL ONE (11:18)
[2024-03-01] MEDS ORDERED: GLYCOPYRROLATE 0.2 MG/ML 2 ML VIAL ONE (11:18)
[2024-03-01] MEDS ORDERED: hydrALAZINE HCL 20 MG/ML 1 ML VIAL ONE (11:18)
[2024-03-01] MEDS ORDERED: ROPIVACAINE 5 MG/ML 30 ML VIAL ONE (11:18)
[2024-03-01] MEDS ORDERED: fentaNYL (PF) 50 MCG/ML 2 ML AMP ONE (11:18)
[2024-03-01] MEDS ORDERED: HYDROmorphone (PF) 1 MG/ML ONE (11:18)
[2024-03-01] MEDS ORDERED: NEOSTIGMINE 1 MG/ML 10 ML VIAL ONE (11:18)
[2024-03-01] MEDS ORDERED: PROPOFOL 10 MG/ML 20 ML VIAL IV ONE (11:18)
[2024-03-01] MEDS ORDERED: SUCCINYLCHOLINE CHLORIDE 200 MG/10 ML VIAL IV ONE (11:18)
[2024-03-01] MEDS ORDERED: MIDAZOLAM 2 MG/2 ML VIAL ONE (11:18)
[2024-03-01] MEDS ORDERED: LIDOCAINE 1% INJ 10MG/ML (20 ML MDV) ONE (11:18)
[2024-03-01] MEDS: LACTATED RINGERS 1,000 ML IV ONE (12:46)
[2024-03-01] MEDS: HYDROmorphone 0.5 MG/0.5 ML SYRINGE IVP PRN ×2 (13:54→18:28)
[2024-03-01] MEDS ORDERED: ACETAMINOPHEN TAB 325 MG TAB PO PRN (14:06)
[2024-03-01] MEDS ORDERED: ONDANSETRON 4 MG/2 ML VIAL IVP PRN (14:06)
--- NOTE | 2024-03-01 14:15 | P.OP ---
Date of Procedure: 03/01/24 Preoperative Diagnosis: Panniculus Postoperative Diagnosis: Panniculus Procedure(s) Performed: Panniculectomy Repair of incisional hernia Anesthesia: ALEM Surgeon: Jacky Figueroa Estimated Blood Loss (ml): 100 Pathology: other (Panniculectomy) Condition: stable Disposition: PACU Operative Findings: 6.8 pound specimen Description of Procedure: Placed on the operative table in the supine position. She received general endotracheal anesthesia. Her abdomen was prepped and draped you sterile fashion. The infra pannicular crease was marked. Then using a 15 blade the skin was incised. Electrocautery the subcu fat was dissected to level of fascia. Next the umbilicus was dissected free from the subcutaneous fat and this was dissected off the fascia. The flap was then elevated use electrocautery. The skin and fat was elevated from the fascia external bleak. At the level of the umbilicus the panniculus was divided in the midline. And then the dissection occurred gerd to the level of the sternum and costal margin bilaterally. Several small perforating vessels were ligated with 3-0 silk ties. The fascia was imbricated using 0 Ethibond suture and 1 STRATAFIX suture. After the fascia was plicated. The redundant skin and fat was marked. And then using a 15 blade the skin was incised and the medial and cautery panniculectomy was performed. 2 RAKAN drains placed through separate stab incision at the pubic area. During the dissection there was found to be a small incisional hernia related to a laparoscopic trocar site. Closed with 0 Ethibond suture. The skin was then reapproximated 0 Vicryl sutures. Flynn's fascia closed with 0 Vicryl suture. Skin was closed with 3-0 Monocryl suture. The umbilicus was brought up placed in the prone position using 3-0 suture. Sterile dressing applied. Patient tolerated well. He was sent to recovery in stable condition.
[2024-03-01] MEDS: hydrALAZINE HCL 20 MG/ML 1 ML VIAL IVP STA (14:52)
[2024-03-01] MEDS: KETOROLAC 15 MG/ML 1 ML VIAL IVP SCH (15:12)
[2024-03-01] MEDS: METOPROLOL TARTRATE 5 MG/5 ML VIAL IVP STA (15:46)
[2024-03-01] MEDS: HYDROcodone/APAP 5-325MG 1 EACH TAB PO PRN (17:24)
[2024-03-02] MEDS: ENOXAPARIN 40 MG/0.4 ML SYRINGE SQ SCH (08:07)
[2024-03-02] MEDS ORDERED: LORATADINE 10 MG TAB PO PRN (09:38)
[2024-03-02] MEDS: PANTOPRAZOLE 40 MG/10 ML VIAL IVP SCH (10:01)
[2024-03-02] MEDS: amLODIPine 10 MG TAB PO SCH (10:04)
[2024-03-02] MEDS: ATORVASTATIN 10 MG TAB PO SCH (10:04)
[2024-03-02] MEDS: VALSARTAN 160 MG TAB PO SCH (10:07)
[2024-03-02] MEDS: SUCRALFATE 1 GM TAB PO SCH (10:49)
--- NOTE | 2024-03-02 12:20 | P.PN ---
Subjective Progress Note Date: 03/02/24 SURGICAL PROGRESS NOTE CHIEF COMPLAINT: Panniculus HISTORY OF PRESENT ILLNESS: Postop day #1 status post panniculectomy and repair of incisional hernia. Patient does complain of pain. Also stomach discomfort. She is hesitant to take pain medication due to prior stomach ulcers. She is requesting medication for her stomach. RAKAN drain with sanguinous output of 40 mL and 35 mL. Afebrile. Vital stable. WBC 9.4 Hgb 12.9 PHYSICAL EXAM: VITAL SIGNS: Reviewed. GENERAL: Well-developed in no acute distress. ABDOMEN: Soft. Nondistended. Tender at incision site. Incisional dressing clean dry and intact. RAKAN drains in place. NEUROLOGIC: Alert and oriented. Cranial nerves II through XII grossly intact. ASSESSMENT: 1. Panniculus with chronic skin irritation PLAN: -IV Protonix twice a day added -Encourage patient to take oral pain medication -Educated patient on RAKAN drain stripping -Continue regular diet -Encourage patient to ambulate -Encourage patient to use incentive spirometer -Anticipate discharge tomorrow -DVT prophylaxis Lovenox Physician Enterprise Services Manager note has been reviewed by physician. Signing provider agrees with the documented findings, assessment, and plan of care. Objective - Vital Signs Vital signs: Vital Signs Temp 98.0 F 03/02/24 07:26 Pulse 60 03/02/24 07:26 Resp 17 03/02/24 07:26 BP 153/94 03/02/24 07:26 Pulse Ox 97 03/02/24 07:26 FiO2 Intake & Output 03/01/24 03/02/24 03/02/24 18:59 06:59 18:59 Intake Total 2830 590 Output Total 810 40 120 Balance 2019 550 -120 Weight 97.3 kg Intake: IV 1750 Oral 1080 590 Output: Drainage 35 40 120 Bilateral Lower Abdomen 35 40 120 Urine 675 Estimated Blood Loss 100 Other: Voiding Method Indwelling Catheter - Labs CBC & Chem 7: 03/01/24 09:30 03/01/24 09:30
[2024-03-02 12:26] LABS: Glucose,Whole Blood 140 mg/dL (70-110)
[2024-03-02] MEDS: NALOXONE 0.4 MG/ML 1 ML VIAL IV PRN (12:31)
[2024-03-02 12:49] LABS: Basophils % (A) 0 %; Eosinophils % (A) 0 %; HCT 31.1 % (34.0-46.0); HGB 10.2 gm/dL (11.4-16.0); Lymphocytes # (A) 2.5 k/uL (1.0-4.8); Lymphocytes % (A) 15 %; MCH 30.4 pg (25.0-35.0); MCHC 32.8 g/dL (31.0-37.0); MCV 92.8 fL (80.0-100.0); Mean Platelet Volume 7.6; Monocytes # (A) 0.9 k/uL (0-1.0); Monocytes % (A) 5 %; Neutrophils # (A) 13.1 k/uL (1.3-7.7); Neutrophils % (A) 77 %; Platelet Count 367 k/uL (150-450); RBC 3.35 m/uL (3.80-5.40); RDW 14.7 % (11.5-15.5); WBC 16.9 k/uL (3.8-10.6)
[2024-03-02 12:54] LABS: Partial Thromboplastin Time 22.8 sec (22.0-30.0); Prothrombin Time 10.6 sec (10.0-12.5)
[2024-03-02 12:54] LABS: African American GFR (CKD) >90 (>60 ml/min/1.73 sqM); Anion Gap 3 mmol/L; Blood Urea Nitrogen 13 mg/dL (7-17); Calcium 8.5 mg/dL (8.4-10.2); Carbon Dioxide 24 mmol/L (22-30); Chloride 105 mmol/L (98-107); Glucose 150 mg/dL (74-99); Magnesium 1.9 mg/dL (1.6-2.3); Non-African American GFR(CKD) 83 (>60 ml/min/1.73 sqM); Potassium 3.8 mmol/L (3.5-5.1); Sodium 132 mmol/L (137-145)
[2024-03-02 13:06] LABS: Glucose,Whole Blood 153 mg/dL (70-110)
[2024-03-02] MEDS: SODIUM CHLORIDE 0.9% 1,000 ML IV ONE (14:03)
--- NOTE | 2024-03-02 14:21 | P.CNPUL ---
History of Present Illness Consult date: 03/02/24 Requesting physician: Jacky Holder Reason for consult: other (ICU management/hypotension) Chief complaint: Status post panniculectomy, and incisional hernia repair History of present illness: This is a 48-year-old female seen recently by Dr. holder on outpatient basis with chronic panniculus, patient underwent panniculectomy on 03/01/2024 and repair of incisional hernia, her immediate postoperative course was uneventful. Today the patient was noted to have some more bleeding and some blood clots noted in the RAKAN drains from her surgical site. In the meantime she was also noted to have low blood pressure, I was asked to see the patient on consultation and transfer to ICU. In the meantime I recommended fluid boluses patient received a total of 1.5 L of saline, and her primary care physician ordered a unit of blood. I evaluated the patient in the ICU, by the time she arrived to the ICU, her blood pressure stabilized, patient did not require any pressors, remains on IV fluids, and she is yet to receive a unit of packed RBCs that was ordered by surgery. During my evaluation, patient had no shortness of breath no cough no wheezing she had no chest pain no nausea no vomiting no abdominal pain she had no palpitations. She had no dysuria frequency or urgency. Continues to have bloody drainage into the RAKAN drains. Hemoglobin today is 10.2 went down from 12.9 yesterday. The rest of the labs were basically unremarkable, she did have a leukocytosis with WBC count of 16.9 platelets were noted to be normal Review of Systems REVIEW OF SYSTEMS: CONSTITUTIONAL: Mostly weakness EYES: Negative. ENT: Negative. CARDIAC: Negative. PULMONARY: Negative GI: As noted in HPI GENITOURINARY: Negative. MUSCULOSKELETAL: Negative. SKIN: Negative. NEUROPSYCH: Negative. ENDOCRINE: Negative. HEMATOLOGIC: As noted in HPI. Past Medical History Past Medical History: Fibromyalgia, GERD/Reflux Additional Past Medical History / Comment(s): peptic ulcers, migraines, anemia. HEMMOROIDS, History of Any Multi-Drug Resistant Organisms: None Reported Past Surgical History: Adenoidectomy, Bariatric Surgery, Section, Cholecystectomy, Ear Surgery, Hysterectomy, Orthopedic Surgery, Tonsillectomy, Uterine Ablation Additional Past Surgical History / Comment(s): PITO EN Y-2007, man carpal tunnel, C/S x 2 Past Anesthesia/Blood Transfusion Reactions: No Reported Reaction Additional Past Anesthesia/Blood Transfusion Reaction / Comment(s): Adopted- FAMILY HX UNKNOWN Past Psychological History: No Psychological Hx Reported Smoking Status: Current every day smoker Past Alcohol Use History: None Reported Additional Past Alcohol Use History / Comment(s): SMOKES < 1/2 PPD, started smoking age 14. QUIT 11/2023 Past Drug Use History: None Reported - Past Family History Mother Family Medical History: Unable to Obtain Additional Family Medical History / Comment(s): Adopted Father Family Medical History: Unable to Obtain Medications and Allergies Home Medications Medication Instructions Recorded Confirmed Type Aspirin/Acetaminophen/Caffeine 2 each PO DIRECTED PRN 04/26/20 03/01/24 History [Excedrin Migraine Caplet] Amlodipine Besylate/Valsartan 1 tab PO QAM 12/31/23 03/01/24 History [Amlodipine Besylate/Valsartan 10-160 mg] hydrOXYzine HCL [Hydroxyzine HCl] 25 mg PO HS PRN 02/25/24 03/01/24 History Amphetamine Sulfate 20 mg PO BID 03/01/24 03/01/24 History Atorvastatin [Lipitor] 10 mg PO DAILY 03/01/24 03/01/24 History Ibuprofen [Motrin] 800 mg PO Q8HR PRN 03/01/24 03/01/24 History Loratadine [Claritin] 10 mg PO DAILY PRN 03/01/24 03/01/24 History Allergies Allergy/AdvReac Type Severity Reaction Status Date / Time No Known Allergies Allergy Verified 03/01/24 09:10 Physical Exam Vitals: Vital Signs Temp Pulse Resp BP BP Pulse Ox 03/02/24 12:31 30 H 03/02/24 12:18 71/44 03/02/24 12:17 74/51 03/02/24 12:14 91/20 03/02/24 12:12 98.0 F 54 L 69/45 97 03/02/24 07:26 98.0 F 60 17 153/94 97 03/02/24 01:47 98.6 F 62 16 136/79 94 L 03/01/24 16:44 97.5 F L 90 16 123/83 92 L 03/01/24 16:22 86 16 138/86 96 03/01/24 16:14 73 16 141/88 94 L 03/01/24 15:59 88 16 139/82 94 L 03/01/24 15:36 96 16 169/95 92 L 03/01/24 15:16 97 14 165/95 94 L 03/01/24 15:02 96 16 166/97 95 03/01/24 14:32 88 16 185/102 95 03/01/24 14:16 84 16 177/104 99 Intake and Output 03/01/24 03/02/24 03/02/24 22:59 06:59 14:59 Intake Total 1080 590 Output Total 410 40 240 Balance 670 550 -240 Intake: Oral 1080 590 Output: Drainage 35 40 240 Bilateral Lower Abdomen 35 40 240 Urine 375 Other: Voiding Method Indwelling Catheter Weight 97.3 kg General: Revealed 48-year-old female in no distress Skin: Skin is warm and dry and no rashes or lesions are noted. Eye: Pupils are equal, round and reactive to light, extra-ocular movements are intact; there is normal conjunctiva bilaterally. Ears, nose, mouth and throat: There are moist mucous membranes and no oral lesions. Neck: The neck is supple, there is no tenderness or JVD. Cardiovascular: There is a regular rate and rhythm. No murmur, rub or gallop is appreciated. Respiratory: Clear throughout no crackles rhonchi or wheezes Gastrointestinal: Soft, nontender, abdominal binder is noted, 2 RAKAN drains noted and filled with blood. Musculoskeletal: Normal ROM, no tenderness, There is no pedal edema. There is no calf tenderness or swelling. No cords were appreciated. Neurological: CN II-XII intact, Cranial nerves III through XII are intact. Psychiatric: Cooperative, appropriate mood & affect, normal judgment. Results - Laboratory Findings CBC and BMP: 03/02/24 12:34 03/02/24 12:34 PT/INR, D-dimer PT 10.6 sec (10.0-12.5) 03/02/24 12:35 INR 1.0 (<1.2) 03/02/24 12:35 Abnormal lab findings: Abnormal Labs 03/02/24 03/02/24 03/02/24 12:20 12:34 12:34 WBC 16.9 H RBC 3.35 L Hgb 10.2 L Hct 31.1 L Neutrophils # 13.1 H Sodium 132 L Glucose 150 H POC Glucose (mg/dL) 140 H Plasma Lactic Acid Ady Crossmatch 03/02/24 03/02/24 03/02/24 12:34 12:35 13:05 WBC RBC Hgb Hct Neutrophils # Sodium Glucose POC Glucose (mg/dL) 153 H Plasma Lactic Acid Ady 2.3 H* Crossmatch See Detail Assessment and Plan Assessment: Impression: Hypotension secondary to hypovolemia and abdominal wall blood loss History of panniculitis status post panniculectomy postoperative day #1 History of fibromyalgia History of GERD/reflux History of bariatric surgery Pito-en-Y 2006 Recommendation: Continue to monitor the patient in the ICU Check troponins Continue IV fluids Agree with 1 unit of packed RBCs as ordered by surgery No need for pressors Continue GI prophylaxis patient is on Protonix Will continue to follow Time with Patient: Greater than 30
[2024-03-02] MEDS: SODIUM CHLORIDE 0.9% 500 ML 500 ML IV ONE (14:30)
[2024-03-02 20:08] LABS: HGB 10.1 gm/dL (11.4-16.0); MCH 30.6 pg (25.0-35.0); MCHC 32.4 g/dL (31.0-37.0); MCV 94.3 fL (80.0-100.0); Mean Platelet Volume 7.1; Platelet Count 292 k/uL (150-450); RBC 3.29 m/uL (3.80-5.40); RDW 14.3 % (11.5-15.5); WBC 21.7 k/uL (3.8-10.6)
[2024-03-02] MEDS: AMPHETAMINE SULFATE 10 MG PO SCH (20:44)
--- NOTE | 2024-03-03 02:32 | CONS ---
CONSULTATION REASON FOR CONSULTATION: Advice regarding fibromyalgia, other medical issues. HISTORY OF PRESENT ILLNESS: This is a 48-year-old woman with a past medical history including cholecystectomy, bariatric surgery, history of fibromyalgia, underwent incisional hernia repair and panniculectomy by Surgery. The patient had RAKAN drains. The patient has significant bleeding. The patient is also hypertensive. The patient was transferred to ICU and then fluid bolus was also given. The patient is being monitored in ICU at this time. Hemoglobin is 10.2, down from 12.9 yesterday. There is no history of any fever, rigors, or chills at this time. Lactic acid 2.3. PAST MEDICAL HISTORY: Bariatric surgery, cholecystectomy. Rest of the history and rest of the chart is also reviewed. HOME MEDICATIONS: Reviewed include amphetamine, dose and rest of medications reviewed. ALLERGIES: None. FAMILY HISTORY: The patient is adopted. SOCIAL HISTORY: History of smoking. REVIEW OF SYSTEMS: Fourteen-point review is negative except as mentioned earlier. PHYSICAL EXAMINATION: VITAL SIGNS: Pulse is 67, blood pressure was 99/64, respirations 20. HEENT: Conjunctivae normal. NECK: No JVD. CARDIOVASCULAR: S1, S2. RESPIRATIONS: Breath sounds diminished at the bases. No rhonchi. No crackles. ABDOMEN: Soft. Abdominal binder present. Significant bleeding from the RAKAN drain present. Otherwise, abdomen is soft. No mass palpable. SKIN: No ulcer, rash, bleeding. JOINTS: No active deforming arthropathy. LABORATORY DATA: WBC 16.0. Rest of the labs are noted. ASSESSMENT: 1. Status post panniculectomy and incisional hernia repair. 2. Significant bleeding from the RAKAN drain and resultant hypotension. 3. Elevated lactic acid. 4. Elevated WBC, possibly reactive. 5. History of fibromyalgia. 6. History of bariatric surgery. 7. History of cholecystectomy. 8. History of Kiya-en-Y. RECOMMENDATIONS AND DISCUSSION: This is a 48-year-old woman, who presented with multiple complex medical issues, we will monitor the patient closely. I would recommend to continue current medications. I would recommend add an EKG and troponin to the current investigations. Monitor hemoglobin closely. IV fluids closely monitor. Guarded prognosis. Further recommendations to follow. Closely follow with Surgery and Pulmonary. MMODL / IJN: [id number] /
[2024-03-03] MEDS: hydrOXYzine HCL 25 MG TAB PO PRN (05:30)
[2024-03-03 05:58] LABS: Basophils # (A) 0.1 k/uL (0-0.2); Basophils % (A) 0 %; Eosinophils # (A) 0.1 k/uL (0-0.7); Eosinophils % (A) 0 %; HGB 9.8 gm/dL (11.4-16.0); Lymphocytes # (A) 2.4 k/uL (1.0-4.8); Lymphocytes % (A) 13 %; MCH 30.6 pg (25.0-35.0); MCHC 32.6 g/dL (31.0-37.0); MCV 93.8 fL (80.0-100.0); Mean Platelet Volume 7.2; Monocytes % (A) 6 %; Neutrophils # (A) 14.7 k/uL (1.3-7.7); Neutrophils % (A) 79 %; Platelet Count 293 k/uL (150-450); RDW 14.5 % (11.5-15.5); WBC 18.6 k/uL (3.8-10.6)
[2024-03-03 06:11] LABS: African American GFR (CKD) >90 (>60 ml/min/1.73 sqM); Anion Gap 3 mmol/L; Blood Urea Nitrogen 13 mg/dL (7-17); Calcium 8.1 mg/dL (8.4-10.2); Carbon Dioxide 27 mmol/L (22-30); Chloride 104 mmol/L (98-107); Glucose 107 mg/dL (74-99); Non-African American GFR(CKD) >90 (>60 ml/min/1.73 sqM); Potassium 4.7 mmol/L (3.5-5.1); Sodium 134 mmol/L (137-145)
--- NOTE | 2024-03-03 11:18 | P.PN ---
Subjective Progress Note Date: 03/03/24 Principal diagnosis: Hypovolemic hypotension This is a 48-year-old female seen recently by Dr. holder on outpatient basis with chronic panniculus, patient underwent panniculectomy on 03/01/2024 and repair of incisional hernia, her immediate postoperative course was uneventful. Today the patient was noted to have some more bleeding and some blood clots noted in the RAKAN drains from her surgical site. In the meantime she was also noted to have low blood pressure, I was asked to see the patient on consultation and transfer to ICU. In the meantime I recommended fluid boluses patient received a total of 1.5 L of saline, and her primary care physician ordered a unit of blood. I evaluated the patient in the ICU, by the time she arrived to the ICU, her blood pressure stabilized, patient did not require any pressors, remains on IV fluids, and she is yet to receive a unit of packed RBCs that was ordered by surgery. During my evaluation, patient had no shortness of breath no cough no wheezing she had no chest pain no nausea no vomiting no abdominal pain she had no palpitations. She had no dysuria frequency or urgency. Continues to have bloody drainage into the RAKAN drains. Hemoglobin today is 10.2 went down from 12.9 yesterday. The rest of the labs were basically unremarkable, she did have a leukocytosis with WBC count of 16.9 platelets were noted to be normal Was seen today on 03/03/2024, remains in the ICU, responded well to fluids and to 1 unit of packed RBCs given to her yesterday by surgery. Hemoglobin today is 9.8, patient is doing great, asymptomatic, continues to have LR at 125 cc/h. Patient is on room air, hemodynamically stable, she has good urine output, hence I will arrange for the patient to be transferred back out to medical surgical [facility]. Objective - Vital Signs Vital signs: Vital Signs Temp 98.3 F 03/03/24 08:00 Pulse 100 03/03/24 08:00 Resp 14 03/03/24 08:00 BP 99/83 03/03/24 08:00 Pulse Ox 98 03/03/24 08:00 FiO2 Intake & Output 03/02/24 03/03/24 03/03/24 18:59 06:59 18:59 Intake Total 2310 1854 250 Output Total 300 860 40 Balance 2009 994 210 Weight 102.2 kg Intake: IV 2000 1500 250 Lactated Ringers 1,000 ml 500 1500 250 @ 125 mls/hr IV .Q8H MIN Rx#:[id number] Sodium Chloride 0.9% 1, 1000 000 ml @ 999 mls/hr IV . Q1H1M ONE Rx#:[id number] Sodium Chloride 0.9% 500 500 ml 500 ml @ 999 mls/hr IV .Q31M ONE Rx#:[id number] Oral 354 Blood Product 310 Rc As-1 Unit 310 [id number] Output: Drainage 300 60 40 Bilateral Lower Abdomen 240 Left 30 30 20 Right 30 30 20 Urine 0 800 Other: Voiding Method External Catheter Bedside Commode Bedside Commode # Voids 1 - Exam General: Revealed 48-year-old female in no distress Skin: Skin is warm and dry and no rashes or lesions are noted. Eye: Pupils are equal, round and reactive to light, extra-ocular movements are intact; there is normal conjunctiva bilaterally. Ears, nose, mouth and throat: There are moist mucous membranes and no oral lesions. Neck: The neck is supple, there is no tenderness or JVD. Cardiovascular: There is a regular rate and rhythm. No murmur, rub or gallop is appreciated. Respiratory: Clear throughout no crackles rhonchi or wheezes Gastrointestinal: Soft, nontender, abdominal binder is noted, 2 RAKAN drains, minimal bleeding into the RAKAN drain Musculoskeletal: Normal ROM, no tenderness, There is no pedal edema. There is no calf tenderness or swelling. No cords were appreciated. Neurological: CN II-XII intact, Cranial nerves III through XII are intact. Psychiatric: Cooperative, appropriate mood & affect, normal judgment. - Labs CBC & Chem 7: 03/03/24 05:16 03/03/24 05:16 Labs: Abnormal Lab Results - Last 24 Hours (Table) 03/02/24 03/02/24 03/02/24 Range/Units 12:20 12:34 12:34 WBC 16.9 H (3.8-10.6) k/uL RBC 3.35 L (3.80-5.40) m/uL Hgb 10.2 L (11.4-16.0) gm/dL Hct 31.1 L (34.0-46.0) % Neutrophils # 13.1 H (1.3-7.7) k/uL Sodium 132 L (137-145) mmol/L Glucose 150 H (74-99) mg/dL POC Glucose (mg/dL) 140 H (70-110) mg/dL Plasma Lactic Acid Ady (0.7-2.0) mmol/L Calcium (8.4-10.2) mg/dL Crossmatch 03/02/24 03/02/24 03/02/24 Range/Units 12:34 12:35 13:05 WBC (3.8-10.6) k/uL RBC (3.80-5.40) m/uL Hgb (11.4-16.0) gm/dL Hct (34.0-46.0) % Neutrophils # (1.3-7.7) k/uL Sodium (137-145) mmol/L Glucose (74-99) mg/dL POC Glucose (mg/dL) 153 H (70-110) mg/dL Plasma Lactic Acid Ady 2.3 H* (0.7-2.0) mmol/L Calcium (8.4-10.2) mg/dL Crossmatch See Detail 03/02/24 03/02/24 03/02/24 Range/Units 15:28 18:39 19:51 WBC 21.7 H (3.8-10.6) k/uL RBC 3.29 L (3.80-5.40) m/uL Hgb 10.1 L (11.4-16.0) gm/dL Hct 31.0 L (34.0-46.0) % Neutrophils # (1.3-7.7) k/uL Sodium (137-145) mmol/L Glucose (74-99) mg/dL POC Glucose (mg/dL) (70-110) mg/dL Plasma Lactic Acid Ady 3.3 H* 2.3 H* (0.7-2.0) mmol/L Calcium (8.4-10.2) mg/dL Crossmatch 03/02/24 03/03/24 03/03/24 Range/Units 22:11 05:16 05:16 WBC 18.6 H (3.8-10.6) k/uL RBC 3.20 L (3.80-5.40) m/uL Hgb 9.8 L (11.4-16.0) gm/dL Hct 30.0 L (34.0-46.0) % Neutrophils # 14.7 H (1.3-7.7) k/uL Sodium 134 L (137-145) mmol/L Glucose 107 H (74-99) mg/dL POC Glucose (mg/dL) (70-110) mg/dL Plasma Lactic Acid Ady 2.8 H* (0.7-2.0) mmol/L Calcium 8.1 L (8.4-10.2) mg/dL Crossmatch Assessment and Plan Assessment: Impression: Hypotension secondary to hypovolemia and abdominal wall blood loss History of panniculitis status post panniculectomy postoperative day #2 History of fibromyalgia History of GERD/reflux History of bariatric surgery Kiya-en-Y 2006 Recommendation: Transfer patient to medical surgical floor Continue IV fluids Continue to monitor hemoglobin hematocrit daily Continue GI prophylaxis patient is on Protonix Will continue to follow Time with Patient: Less than 30
--- NOTE | 2024-03-03 12:50 | P.PN ---
Subjective Progress Note Date: 03/03/24 SURGICAL PROGRESS NOTE CHIEF COMPLAINT: Panniculus HISTORY OF PRESENT ILLNESS: Postop day #2 status post panniculectomy and repair of incisional hernia. Patient required a transfer to the ICU yesterday due to hypotension. Patient did receive IV fluids and a unit of blood. Hemoglobin stable at 9.8 today. Vitals are stable. And she is scheduled for transfer out of the ICU today. Afebrile. WBC is down from 21.7-18.6 Hgb 10.1-9.8 platelets 293 hemoglobin after blood transfusion was 10.1. RAKAN drain with sanguinous output. Left drain 35 mL and right drain 30 mL. Patient seen and examined with Dr. Figueroa PHYSICAL EXAM: VITAL SIGNS: Reviewed. GENERAL: Well-developed in no acute distress. ABDOMEN: Soft. Nondistended. Tender at incision site. Incisional dressing clean dry and intact. RAKAN drains in place. NEUROLOGIC: Alert and oriented. Cranial nerves II through XII grossly intact. ASSESSMENT: 1. Panniculus with chronic skin irritation 2. Hypotension improved with IV fluids and blood transfusion PLAN: -Agree with transfer out of the ICU -Continue to monitor RAKAN drain output -Continue pain management -Continue regular diet -Encourage patient to ambulate -Encourage patient to use incentive spirometer -GI prophylaxis Protonix and DVT prophylaxis SCDs Physician Belt Builder note has been reviewed by physician. Signing provider agrees with the documented findings, assessment, and plan of care. Objective - Vital Signs Vital signs: Vital Signs Temp 98.3 F 03/03/24 08:00 Pulse 100 03/03/24 08:00 Resp 14 03/03/24 08:00 BP 99/83 03/03/24 08:00 Pulse Ox 98 03/03/24 08:00 FiO2 Intake & Output 03/02/24 03/03/24 03/03/24 18:59 06:59 18:59 Intake Total 2310 1854 250 Output Total 300 860 315 Balance 2009 994 -65 Weight 102.2 kg Intake: IV 2000 1500 250 Lactated Ringers 1,000 ml 500 1500 250 @ 125 mls/hr IV .Q8H [facility] Rx#:[id number] Sodium Chloride 0.9% 1, 1000 000 ml @ 999 mls/hr IV . Q1H1M [facility] Rx#:[id number] Sodium Chloride 0.9% 500 500 ml 500 ml @ 999 mls/hr IV .Q31M [facility] Rx#:[id number] Oral 354 Blood Product 310 Rc As-1 Unit 310 [id number] Output: Drainage 300 60 65 Bilateral Lower Abdomen 240 Left 30 30 35 Right 30 30 30 Urine 0 800 250 Other: Voiding Method External Catheter Bedside Commode Bedside Commode # Voids 1 1 - Labs CBC & Chem 7: 03/03/24 05:16 03/03/24 05:16 Labs: Abnormal Lab Results - Last 24 Hours (Table) 03/02/24 03/02/24 03/02/24 Range/Units 12:34 12:34 12:34 WBC 16.9 H (3.8-10.6) k/uL RBC 3.35 L (3.80-5.40) m/uL Hgb 10.2 L (11.4-16.0) gm/dL Hct 31.1 L (34.0-46.0) % Neutrophils # 13.1 H (1.3-7.7) k/uL Sodium 132 L (137-145) mmol/L Glucose 150 H (74-99) mg/dL POC Glucose (mg/dL) (70-110) mg/dL Plasma Lactic Acid Ady 2.3 H* (0.7-2.0) mmol/L Calcium (8.4-10.2) mg/dL Crossmatch 03/02/24 03/02/24 03/02/24 Range/Units 12:35 13:05 15:28 WBC (3.8-10.6) k/uL RBC (3.80-5.40) m/uL Hgb (11.4-16.0) gm/dL Hct (34.0-46.0) % Neutrophils # (1.3-7.7) k/uL Sodium (137-145) mmol/L Glucose (74-99) mg/dL POC Glucose (mg/dL) 153 H (70-110) mg/dL Plasma Lactic Acid Ady 3.3 H* (0.7-2.0) mmol/L Calcium (8.4-10.2) mg/dL Crossmatch See Detail 03/02/24 03/02/24 03/02/24 Range/Units 18:39 19:51 22:11 WBC 21.7 H (3.8-10.6) k/uL RBC 3.29 L (3.80-5.40) m/uL Hgb 10.1 L (11.4-16.0) gm/dL Hct 31.0 L (34.0-46.0) % Neutrophils # (1.3-7.7) k/uL Sodium (137-145) mmol/L Glucose (74-99) mg/dL POC Glucose (mg/dL) (70-110) mg/dL Plasma Lactic Acid Ady 2.3 H* 2.8 H* (0.7-2.0) mmol/L Calcium (8.4-10.2) mg/dL Crossmatch 03/03/24 03/03/24 Range/Units 05:16 05:16 WBC 18.6 H (3.8-10.6) k/uL RBC 3.20 L (3.80-5.40) m/uL Hgb 9.8 L (11.4-16.0) gm/dL Hct 30.0 L (34.0-46.0) % Neutrophils # 14.7 H (1.3-7.7) k/uL Sodium 134 L (137-145) mmol/L Glucose 107 H (74-99) mg/dL POC Glucose (mg/dL) (70-110) mg/dL Plasma Lactic Acid Ady (0.7-2.0) mmol/L Calcium 8.1 L (8.4-10.2) mg/dL Crossmatch
--- NOTE | 2024-03-03 14:33 | XR ---
EXAMINATION TYPE: XR chest 1V portable DATE OF EXAM: 03/03/2024 2:13 PM COMPARISON: 07/04/2020 CLINICAL INDICATION: Female, 48 years old with history of CHF; TECHNIQUE: XR chest 1V portable Frontal view of the chest. FINDINGS: Lungs/Pleura: Low lung volumes are present. There is no evidence of pleural effusion, focal consolida tion, or pneumothorax. Pulmonary vascularity: Unremarkable. Heart/mediastinum: Cardiomediastinal silhouette is prominent in size. Musculoskeletal: No acute osseous pathology. Other findings: None IMPRESSION: Low lung volumes with a generalized hazy appearance which could represent atelectasis versus pulmonar y edema correlate with serum BNP. [facility], , 03/03/2024 2:30 PM
--- NOTE | 2024-03-03 15:59 | PN ---
PROGRESS NOTE DATE OF SERVICE: 03/03/2024 SUBJECTIVE: This is a 48-year-old woman who was admitted after a panic attack with hypotension. The patient is monitored in ICU at this time. The blood pressure is slightly better. Hemoglobin is showing a drop, but currently at 9.8, white count is elevated, possibly as a reactive function. PAST MEDICAL HISTORY: Reviewed. REVIEW OF SYSTEMS: 14-point review is negative except as mentioned earlier. CURRENT MEDICATIONS: Reviewed include Lipitor. Dose and rest of medications noted. PHYSICAL EXAMINATION: VITAL SIGNS: Pulse is 80 to 99, blood pressure 109/84, respirations 14. HEENT: Conjunctivae normal. CARDIOVASCULAR: S1, S2. RESPIRATIONS: A few scattered rhonchi. ABDOMEN: Soft, status post surgery. LEGS: No edema. NERVOUS SYSTEM: Nonfocal. LABORATORY DATA: Sodium 135. Rest of the labs are noted. ASSESSMENT: 1. Status post panniculectomy and as well as incisional hernia repair. 2. Significant bleeding from the RAKAN drain with resultant hypotension and blood loss anemia. 3. Elevated WBC. 4. Elevated lactic acid. 5. History of fibromyalgia. 6. History of bariatric surgery. 7. History of cholecystitis. 8. History of Kiya-en-Y. RECOMMENDATIONS AND DISCUSSION: Recommend to continue current management and continue symptomatic treatment. Otherwise, I would also recommend a set of blood cultures and basic workup for the elevated WBC include UA with micro. Incentive spirometry. Monitor hemoglobin closely. Closely follow with Surgery. Further recommendations to follow. MMODL / IJN: [id number] /
[2024-03-03] MEDS: CALCIUM CARBONATE 500 MG CHEWABLE PO PRN (18:08)
[2024-03-04 00:09] LABS: Appearance,Urine Cloudy (Clear); Bacteria,Urine Rare /hpf; Bilirubin,Urine Negative (Negative); Blood,Urine Trace (Negative); Budding Yeast,Urine Rare /hpf; Color,Urine Light Yellow; Glucose,Urine (UA) Negative (Negative); Ketones,Urine Negative (Negative); Leukocyte Esterase,Urine Negative (Negative); Mucus,Urine Occasional /hpf; Nitrite,Urine Negative (Negative); Protein,Urine Negative (Negative); RBC,Urine 1 /hpf (0-5); Specific Gravity,Urine 1.013 (1.001-1.035); Squamous Epithelial Cell,Urine 14 /hpf (0-4); Urobilinogen,Urine <2.0 mg/dL (<2.0); WBC,Urine 1 /hpf (0-5)
[2024-03-04 08:50] LABS: HCT 24.8 % (37.2-46.3); MCHC 32.3 g/dL (32.0-37.0); MCV 92.9 FL (80.0-97.0); Mean Platelet Volume 9.8 FL (9.5-12.2); NRBC Per 100 WBC 0 X 10*3/uL (0.00-0.01); Platelet Count 279 X 10*3/uL (140-440); RBC 2.67 X 10*6/uL (4.10-5.20); RDW 14.9 % (11.5-14.5); WBC 18.48 X 10*3/uL (4.50-10.00)
[2024-03-04 08:55] LABS: ALT 98 U/L (8-44); AST 32 U/L (13-35); Albumin 3.1 g/dL (3.8-4.9); Albumin/Globulin Ratio 1.63 Ratio (1.60-3.17); Alkaline Phosphatase 96 U/L (41-126); BUN/Creat Ratio 11.71 Ratio (12.00-20.00); Blood Urea Nitrogen 8.2 mg/dL (9.0-27.0); Calcium 8.1 mg/dL (8.7-10.3); Carbon Dioxide 23.6 mmol/L (21.6-31.8); Chloride 102 mmol/L (96-109); Globulin 1.9 g/dL (1.6-3.3); Glucose 131 mg/dL (70-110); Potassium 3.9 mmol/L (3.5-5.5); Sodium 137 mmol/L (135-145); Total Bilirubin 0.5 mg/dL (0.3-1.2)
[2024-03-04 11:01] LABS: Basophils # (A) 0.09 X 10*3/uL (0.00-0.10); Basophils % (A) 0.5 %; Eosinophils # (A) 0.11 X 10*3/uL (0.04-0.35); Eosinophils % (A) 0.6 %; Lymphocytes # (A) 2.27 X 10*3/uL (0.90-5.00); Lymphocytes % (A) 12.3 %; Monocytes # (A) 1.82 X 10*3/uL (0.20-1.00); Monocytes % (A) 9.8 %; Neutrophils # (A) 14.09 X 10*3/uL (1.80-7.70); Neutrophils % (A) 76.3 %; RBC Morphology Normal (Normal)
--- NOTE | 2024-03-04 13:18 | P.PN ---
Subjective Progress Note Date: 03/04/24 This is a 48-year-old female seen recently by Dr. holder on outpatient basis with chronic panniculus, patient underwent panniculectomy on 03/01/2024 and repair of incisional hernia, her immediate postoperative course was uneventful. Today the patient was noted to have some more bleeding and some blood clots noted in the RAKAN drains from her surgical site. In the meantime she was also noted to have low blood pressure, I was asked to see the patient on consultation and transfer to ICU. In the meantime I recommended fluid boluses patient received a total of 1.5 L of saline, and her primary care physician ordered a unit of blood. I evaluated the patient in the ICU, by the time she arrived to the ICU, her blood pressure stabilized, patient did not require any pressors, remains on IV fluids, and she is yet to receive a unit of packed RBCs that was ordered by surgery. During my evaluation, patient had no shortness of breath no cough no wheezing she had no chest pain no nausea no vomiting no abdominal pain she had no palpitations. She had no dysuria frequency or urgency. Continues to have bloody drainage into the RAKAN drains. Hemoglobin today is 10.2 went down from 12.9 yesterday. The rest of the labs were basically unremarkable, she did have a leukocytosis with WBC count of 16.9 platelets were noted to be normal Was seen today on 03/03/2024, remains in the ICU, responded well to fluids and to 1 unit of packed RBCs given to her yesterday by surgery. Hemoglobin today is 9.8, patient is doing great, asymptomatic, continues to have LR at 125 cc/h. Patient is on room air, hemodynamically stable, she has good urine output, hence I will arrange for the patient to be transferred back out to medical surgical floor. The patient is seen today March 04, 2024 in follow-up on the regular medical floor. She was transferred out of the intensive care unit yesterday. She is awake and alert in no acute distress. Sitting up at the bedside. She is maintaining good O2 saturations in the 90s on room air. She is afebrile. Hemodynamically stable. White count 18.4. Hemoglobin 8.0. Platelets 279. Sodium 137. Potassium 3.9. Bicarb 24. BUN 8. Creatinine 0.7. Glucose 131. Objective - Vital Signs Vital signs: Vital Signs Temp 98.7 F 03/04/24 07:40 Pulse 97 03/04/24 07:40 Resp 17 03/04/24 07:40 BP 123/81 03/04/24 07:40 Pulse Ox 94 L 03/04/24 07:40 FiO2 Intake & Output 03/03/24 03/04/24 03/04/24 18:59 06:59 18:59 Intake Total 250 120 Output Total 730 20 30 Balance -480 100 -30 Weight 102.2 kg Intake: IV 250 Lactated Ringers 1,000 ml 250 @ 125 mls/hr IV .Q8H [facility] Rx#:[id number] Oral 120 Output: Drainage 80 20 30 Left 45 15 10 Right 35 5 20 Urine 650 Other: Voiding Method Bedside Commode # Voids 1 1 - Exam GENERAL EXAM: Alert, pleasant 48-year-old female, on room air, comfortable in no apparent distress. HEAD: Normocephalic. EYES: Normal reaction of pupils, equal size. NOSE: Clear with pink turbinates. THROAT: No erythema or exudates. NECK: No masses, no JVD. CHEST: No chest wall deformity. LUNGS: Equal air entry with no crackles, wheeze, rhonchi or dullness. CVS: S1 and S2 normal with no audible murmur, regular rhythm. ABDOMEN: Incisional dressing dry and intact. RAKAN drains in place. Normal bowel sounds, no guarding or rigidity. SPINE: No scoliosis or deformity SKIN: No rashes CENTRAL NERVOUS SYSTEM: No focal deficits, tone is normal in all 4 extremities. EXTREMITIES: There is no peripheral edema. No clubbing, no cyanosis. Peripheral pulses are intact. - Labs CBC & Chem 7: 03/04/24 03:08 03/04/24 03:08 Labs: Abnormal Lab Results - Last 24 Hours (Table) 03/03/24 03/04/24 03/04/24 Range/Units 23:50 03:08 03:08 WBC 18.48 H (4.50-10.00) X 10*3/uL RBC 2.67 L (4.10-5.20) X 10*6/uL Hgb 8.0 L (12.0-15.0) g/dL Hct 24.8 L (37.2-46.3) % RDW 14.9 H (11.5-14.5) % Immature Gran # 0.10 H (0.00-0.04) X 10*3/uL Neutrophils # 14.09 H (1.80-7.70) X 10*3/uL Monocytes # 1.82 H (0.20-1.00) X 10*3/uL BUN 8.2 L (9.0-27.0) mg/dL BUN/Creatinine Ratio 11.71 L (12.00-20.00) Ratio Glucose 131 H (70-110) mg/dL Calcium 8.1 L (8.7-10.3) mg/dL ALT 98 H (8-44) U/L Total Protein 5.0 L (6.2-8.2) g/dL Albumin 3.1 L (3.8-4.9) g/dL Urine Appearance Cloudy H (Clear) Urine Blood Trace H (Negative) Ur Squamous Epith Cells 14 H (0-4) /hpf Urine Bacteria Rare H (None) /hpf Urine Mucus Occasional H (None) /hpf Urine Yeast (Budding) Rare H (None) /hpf Assessment and Plan Assessment: Hypotension secondary to hypovolemia and abdominal wall blood loss. Received 1 unit of packed red blood cells. Improved. Did not require pressors History of panniculitis status post panniculectomy postoperative day #3 History of fibromyalgia History of GERD/reflux History of bariatric surgery Kiya-en-Y 2006 Plan: The patient was seen and evaluated Chest x-ray, labs and medications reviewed Increase her activity as tolerated Encouraged the increased use of the incentive spirometer Stable and on room air Continue to monitor hemoglobin I have personally seen and examined the patient, performed the documentation and the assessment and plan as written. Number of minutes spent on the visit: 10 Dictation was produced using [employer] dictation software. Please excuse any gramm atical, word or spelling errors.
--- NOTE | 2024-03-04 13:38 | P.PN ---
Subjective Progress Note Date: 03/04/24 SURGICAL PROGRESS NOTE CHIEF COMPLAINT: Panniculus HISTORY OF PRESENT ILLNESS: Postop day #3 status post panniculectomy and repair of incisional hernia. Patient was transferred out of the ICU and is currently on a regular medical floor. She reports her pain is controlled. She reports decreased appetite. She is having flatus. She has gotten up to the bathroom. Afebrile. WBC is 18 Hgb 9.8 down to 8. RAKAN drain on the left 25 and right 10 serosanguineous output. Patient seen and examined with Dr. Figueroa PHYSICAL EXAM: VITAL SIGNS: Reviewed. GENERAL: Well-developed in no acute distress. ABDOMEN: Soft. Nondistended. Tender at incision site. Incisional dressing clean dry and intact. RAKAN drains in place. NEUROLOGIC: Alert and oriented. Cranial nerves II through XII grossly intact. ASSESSMENT: 1. Panniculus with chronic skin irritation 2. Hypotension improved with IV fluids and blood transfusion 3. Acute blood loss anemia after surgery improved with blood transfusion PLAN: -Encourage patient to ambulate -Continue regular diet -Continue pain management -Continue regular diet -Encourage patient to ambulate -Encourage patient to use incentive spirometer -GI prophylaxis Protonix and DVT prophylaxis SCDs Physician Slate Trimmer note has been reviewed by physician. Signing provider agrees with the documented findings, assessment, and plan of care. Objective - Vital Signs Vital signs: Vital Signs Temp 98.7 F 03/04/24 07:40 Pulse 97 03/04/24 07:40 Resp 17 03/04/24 07:40 BP 123/81 03/04/24 07:40 Pulse Ox 94 L 03/04/24 07:40 FiO2 Intake & Output 03/03/24 03/04/24 03/04/24 18:59 06:59 18:59 Intake Total 250 120 Output Total 730 20 30 Balance -480 100 -30 Weight 102.2 kg Intake: IV 250 Lactated Ringers 1,000 ml 250 @ 125 mls/hr IV .Q8H [facility] Rx#:[id number] Oral 120 Output: Drainage 80 20 30 Left 45 15 10 Right 35 5 20 Urine 650 Other: Voiding Method Bedside Commode # Voids 1 1 - Labs CBC & Chem 7: 03/04/24 03:08 03/04/24 03:08 Labs: Abnormal Lab Results - Last 24 Hours (Table) 03/03/24 03/04/24 03/04/24 Range/Units 23:50 03:08 03:08 WBC 18.48 H (4.50-10.00) X 10*3/uL RBC 2.67 L (4.10-5.20) X 10*6/uL Hgb 8.0 L (12.0-15.0) g/dL Hct 24.8 L (37.2-46.3) % RDW 14.9 H (11.5-14.5) % Immature Gran # 0.10 H (0.00-0.04) X 10*3/uL Neutrophils # 14.09 H (1.80-7.70) X 10*3/uL Monocytes # 1.82 H (0.20-1.00) X 10*3/uL BUN 8.2 L (9.0-27.0) mg/dL BUN/Creatinine Ratio 11.71 L (12.00-20.00) Ratio Glucose 131 H (70-110) mg/dL Calcium 8.1 L (8.7-10.3) mg/dL ALT 98 H (8-44) U/L Total Protein 5.0 L (6.2-8.2) g/dL Albumin 3.1 L (3.8-4.9) g/dL Urine Appearance Cloudy H (Clear) Urine Blood Trace H (Negative) Ur Squamous Epith Cells 14 H (0-4) /hpf Urine Bacteria Rare H (None) /hpf Urine Mucus Occasional H (None) /hpf Urine Yeast (Budding) Rare H (None) /hpf
--- NOTE | 2024-03-05 05:33 | PN ---
PROGRESS NOTE DATE OF SERVICE: 03/04/2024 SUBJECTIVE: This is a 48-year-old woman, who was admitted after panniculectomy, had relative hypotension. Hemoglobin is at 8 today. No chest pain. No palpitation. OBJECTIVE: VITAL SIGNS: Pulse is 93, blood pressure 123/84, respirations 16. CHEST: Clear to auscultation. CARDIOVASCULAR: S1, S2. ABDOMEN: Soft. NERVOUS SYSTEM: Nonfocal. LABORATORY DATA: WBC 18.48, hemoglobin 8. ASSESSMENT: 1. Status post panniculectomy and as well as incisional hernia repair. 2. Significant bleeding from RAKAN drain with acute blood loss anemia with resultant hypotension. 3. Increased WBC. 4. Elevated lactic acid. 5. History of fibromyalgia. 6. Multiple complex medical issues. RECOMMENDATIONS AND DISCUSSION: Recommend to continue current management and continue symptomatic treatment. Otherwise, at this time, I will recommend repeat labs, 1 unit transfusion has been given. We will continue to monitor. Guarded prognosis. Further recommendations to follow. MMODL / IJN: [id number] /
[2024-03-05 08:48] LABS: Basophils # (A) 0.04 X 10*3/uL (0.00-0.10); Basophils % (A) 0.3 %; HGB 7.5 g/dL (12.0-15.0); Lymphocytes # (A) 2.55 X 10*3/uL (0.90-5.00); Lymphocytes % (A) 16.8 %; MCH 30.7 pg (27.0-32.0); MCHC 32.6 g/dL (32.0-37.0); MCV 94.3 FL (80.0-97.0); Monocytes # (A) 1.52 X 10*3/uL (0.20-1.00); NRBC Per 100 WBC 0 X 10*3/uL (0.00-0.01); Neutrophils # (A) 10.71 X 10*3/uL (1.80-7.70); Neutrophils % (A) 70.6 %; Platelet Count 289 X 10*3/uL (140-440); RBC 2.44 X 10*6/uL (4.10-5.20); RDW 14.6 % (11.5-14.5); WBC 15.17 X 10*3/uL (4.50-10.00)
[2024-03-05 09:09] LABS: BUN/Creat Ratio 8.83 Ratio (12.00-20.00); Blood Urea Nitrogen 5.3 mg/dL (9.0-27.0); Calcium 8.3 mg/dL (8.7-10.3); Carbon Dioxide 28.6 mmol/L (21.6-31.8); Chloride 102 mmol/L (96-109); Glucose 101 mg/dL (70-110); Potassium 3.8 mmol/L (3.5-5.5); Sodium 138 mmol/L (135-145)
[2024-03-05] MEDS: PIPERACILLIN-TAZOBACTAM 3.375 GM in SODIUM CHLORIDE 0.9% 100 ML IVPB SCH (11:03)
--- NOTE | 2024-03-05 11:14 | P.PN ---
Subjective Progress Note Date: 03/05/24 This is a 48-year-old female seen recently by Dr. holder on outpatient basis with chronic panniculus, patient underwent panniculectomy on 03/01/2024 and repair of incisional hernia, her immediate postoperative course was uneventful. Today the patient was noted to have some more bleeding and some blood clots noted in the RAKAN drains from her surgical site. In the meantime she was also noted to have low blood pressure, I was asked to see the patient on consultation and transfer to ICU. In the meantime I recommended fluid boluses patient received a total of 1.5 L of saline, and her primary care physician ordered a unit of blood. I evaluated the patient in the ICU, by the time she arrived to the ICU, her blood pressure stabilized, patient did not require any pressors, remains on IV fluids, and she is yet to receive a unit of packed RBCs that was ordered by surgery. During my evaluation, patient had no shortness of breath no cough no wheezing she had no chest pain no nausea no vomiting no abdominal pain she had no palpitations. She had no dysuria frequency or urgency. Continues to have bloody drainage into the RAKAN drains. Hemoglobin today is 10.2 went down from 12.9 yesterday. The rest of the labs were basically unremarkable, she did have a leukocytosis with WBC count of 16.9 platelets were noted to be normal Was seen today on 03/03/2024, remains in the ICU, responded well to fluids and to 1 unit of packed RBCs given to her yesterday by surgery. Hemoglobin today is 9.8, patient is doing great, asymptomatic, continues to have LR at 125 cc/h. Patient is on room air, hemodynamically stable, she has good urine output, hence I will arrange for the patient to be transferred back out to medical surgical floor. The patient is seen today March 04, 2024 in follow-up on the regular medical floor. She was transferred out of the intensive care unit yesterday. She is awake and alert in no acute distress. Sitting up at the bedside. She is maintaining good O2 saturations in the 90s on room air. She is afebrile. Hemodynamically stable. White count 18.4. Hemoglobin 8.0. Platelets 279. Sodium 137. Potassium 3.9. Bicarb 24. BUN 8. Creatinine 0.7. Glucose 131. The patient is seen today March 05, 2024 in follow-up on the regular medical floor. She is currently sitting up in a chair at the bedside. Awake and alert in no acute distress. She is maintaining good O2 saturations in the 90s on room air. She is afebrile. Hemodynamically stable. White count 15.1. Hemoglobin 7.5. Platelets 289. Sodium 138. Potassium 3.8. Bicarb 29. BUN 5. Creatinine 0.6. Glucose 101. She is receiving [place] and Dilaudid intermittently for pain control. She is working well with the incentive spirometer. Objective - Vital Signs Vital signs: Vital Signs Temp 97.9 F 03/05/24 07:47 Pulse 86 03/05/24 08:00 Resp 18 03/05/24 08:00 BP 131/86 03/05/24 07:47 Pulse Ox 92 L 03/05/24 07:47 FiO2 Intake & Output 03/04/24 03/05/24 03/05/24 18:59 06:59 18:59 Intake Total 540 Output Total 70 15 Balance 470 -15 Intake: Oral 540 Output: Drainage 70 15 Left 30 10 Right 40 5 Other: Voiding Method Toilet Toilet # Voids 5 5 1 - Exam GENERAL EXAM: Alert, 48-year-old female, sitting up in a chair, on room air, in no apparent distress. HEAD: Normocephalic. EYES: Normal reaction of pupils, equal size. NOSE: Clear with pink turbinates. THROAT: No erythema or exudates. NECK: No masses, no JVD. CHEST: No chest wall deformity. LUNGS: Equal air entry with no crackles, wheeze, rhonchi or dullness. CVS: S1 and S2 normal with no audible murmur, regular rhythm. ABDOMEN: Abdominal binder in place. RAKAN drains in place. Normal bowel sounds, no guarding or rigidity. SPINE: No scoliosis or deformity SKIN: No rashes CENTRAL NERVOUS SYSTEM: No focal deficits, tone is normal in all 4 extremities. EXTREMITIES: There is no peripheral edema. No clubbing, no cyanosis. Peripheral pulses are intact. - Labs CBC & Chem 7: 03/05/24 03:34 03/05/24 03:34 Labs: Abnormal Lab Results - Last 24 Hours (Table) 11/15/24 11/15/24 Range/Units 03:34 03:34 WBC 15.17 H (4.50-10.00) X 10*3/uL RBC 2.44 L (4.10-5.20) X 10*6/uL Hgb 7.5 L (12.0-15.0) g/dL Hct 23.0 L (37.2-46.3) % RDW 14.6 H (11.5-14.5) % Immature Gran # 0.05 H (0.00-0.04) X 10*3/uL Neutrophils # 10.71 H (1.80-7.70) X 10*3/uL Monocytes # 1.52 H (0.20-1.00) X 10*3/uL BUN 5.3 L (9.0-27.0) mg/dL BUN/Creatinine Ratio 8.83 L (12.00-20.00) Ratio Calcium 8.3 L (8.7-10.3) mg/dL Microbiology - Last 24 Hours (Table) 03/03/24 14:36 Blood Culture - Preliminary Blood Assessment and Plan Assessment: Hypotension secondary to hypovolemia and abdominal wall blood loss. Received 1 unit of packed red blood cells. Improved. Did not require pressors. Transferred out of the intensive care unit History of panniculitis status post panniculectomy postoperative day #4 History of fibromyalgia History of GERD/reflux History of bariatric surgery Kiya-en-Y 2006 Plan: The patient was seen and evaluated Labs and medications reviewed Increase her activity as tolerated Assure adequate pain control Encouraged the increased use of the incentive spirometer Stable and on room air Continue to monitor hemoglobin Plan is for home with home care at discharge This patient was seen independently by the pulmonary nurse practitioner addressing pulmonary issues I have personally seen and examined the patient, performed the documentation and the assessment and plan as written. Number of minutes spent on the visit: 24 Dictation was produced using [employer] dictation software. Please excuse any grammatical, word or spelling errors.
--- NOTE | 2024-03-05 13:54 | P.PN ---
Subjective Progress Note Date: 03/05/24 SURGICAL PROGRESS NOTE CHIEF COMPLAINT: Panniculus HISTORY OF PRESENT ILLNESS: Postop day #4 status post panniculectomy and repair of incisional hernia. Patient currently on a regular medical floor. She still having issues with pain. More on the right lower side. Denies any nausea or vomiting. She is sitting at bedside chair. Afebrile. RAKAN drain with 30 mL serosanguineous on the left and 25 mL on the right. Afebrile. WBC is down from 18-15 Hgb down from 8-7.5 Patient seen and examined with Dr. Figueroa PHYSICAL EXAM: VITAL SIGNS: Reviewed. GENERAL: Well-developed in no acute distress. ABDOMEN: Soft. Nondistended. Midline incision with purpleish discoloration from midline up towards the umbilicus. Small area of skin breakdown noted. NEUROLOGIC: Alert and oriented. Cranial nerves II through XII grossly intact. ASSESSMENT: 1. Panniculus with chronic skin irritation 2. Hypotension improved with IV fluids and blood transfusion 3. Acute blood loss anemia after surgery improved with blood transfusion PLAN: -Continue to monitor surgical incision closely -Zosyn added for antibiotic coverage due to leukocytosis -Repeat CBC in a.m. -Continue pain management -Encourage patient to increase activity level -GI prophylaxis Protonix and DVT prophylaxis SCDs Physician Custom Designer note has been reviewed by physician. Signing provider agrees with the documented findings, assessment, and plan of care. Objective - Vital Signs Vital signs: Vital Signs Temp 97.9 F 03/05/24 07:47 Pulse 86 03/05/24 08:00 Resp 18 03/05/24 08:00 BP 131/86 03/05/24 07:47 Pulse Ox 92 L 03/05/24 07:47 FiO2 Intake & Output 03/04/24 03/05/24 03/05/24 18:59 06:59 18:59 Intake Total 540 Output Total 70 15 Balance 470 -15 Intake: Oral 540 Output: Drainage 70 15 Left 30 10 Right 40 5 Other: Voiding Method Toilet Toilet # Voids 5 5 1 - Labs CBC & Chem 7: 03/05/24 03:34 03/05/24 03:34 Labs: Abnormal Lab Results - Last 24 Hours (Table) 03/05/24 03/05/24 Range/Units 03:34 03:34 WBC 15.17 H (4.50-10.00) X 10*3/uL RBC 2.44 L (4.10-5.20) X 10*6/uL Hgb 7.5 L (12.0-15.0) g/dL Hct 23.0 L (37.2-46.3) % RDW 14.6 H (11.5-14.5) % Immature Gran # 0.05 H (0.00-0.04) X 10*3/uL Neutrophils # 10.71 H (1.80-7.70) X 10*3/uL Monocytes # 1.52 H (0.20-1.00) X 10*3/uL BUN 5.3 L (9.0-27.0) mg/dL BUN/Creatinine Ratio 8.83 L (12.00-20.00) Ratio Calcium 8.3 L (8.7-10.3) mg/dL Microbiology - Last 24 Hours (Table) 03/03/24 14:36 Blood Culture - Preliminary Blood
[2024-03-05] MEDS: SENNOSIDES 8.6 MG TAB PO PRN (19:24)
--- NOTE | 2024-03-06 06:20 | PN ---
PROGRESS NOTE DATE OF SERVICE: 03/05/2024 SUBJECTIVE: This is a 48-year-old woman, who was admitted with panniculectomy, also had significant bleeding and hypertension, anemia and multiple other medical issues. The patient is complaining of significant pain. No chest pain. No palpitation. PAST MEDICAL HISTORY: Reviewed. REVIEW OF SYSTEMS: A 14-point review of systems is negative except as mentioned earlier. CURRENT MEDICATIONS: Reviewed. PHYSICAL EXAMINATION: VITAL SIGNS: Pulse is 84, blood pressure 131/82, respirations 18. HEENT: Conjunctivae normal. NECK: No JVD. CARDIOVASCULAR: S1, S2. RESPIRATIONS: Breath sounds diminished at the bases. ABDOMEN: Soft, status post surgery. LEGS: No edema. NERVOUS SYSTEM: Nonfocal. LABORATORY DATA: Hemoglobin 7.5 and WBC 15.17. ASSESSMENT: 1. Status post panniculectomy as well as incisional hernia repair. 2. Significant bleeding from RAKAN drain with acute blood loss anemia with resultant hypotension. 3. Increased WBC. 4. Severe pain. 5. Elevated lactic acid. 6. History of fibromyalgia. 7. Multiple complex medical issues. RECOMMENDATIONS AND DISCUSSION: Recommend to continue current management and continue symptomatic treatment. Recommend repeat labs and if hemoglobin less than 7, I would recommend a unit of transfusion and regarding the pain management, I would recommend to continue the [place] p.r.n. as well as Dilaudid p.r.n. and continue to monitor. Guarded prognosis. Further recommendations to follow. MMODL / IJN: [id number] /
[2024-03-06 09:49] LABS: BUN/Creat Ratio 9.71 Ratio (12.00-20.00); Basophils # (A) 0.06 X 10*3/uL (0.00-0.10); Basophils % (A) 0.5 %; Blood Urea Nitrogen 6.8 mg/dL (9.0-27.0); Calcium 8.3 mg/dL (8.7-10.3); Carbon Dioxide 25.7 mmol/L (21.6-31.8); Chloride 100 mmol/L (96-109); Eosinophils # (A) 0.47 X 10*3/uL (0.04-0.35); Eosinophils % (A) 3.9 %; Glucose 116 mg/dL (70-110); HGB 7.8 g/dL (12.0-15.0); Lymphocytes # (A) 2.02 X 10*3/uL (0.90-5.00); Lymphocytes % (A) 16.9 %; MCH 30.4 pg (27.0-32.0); MCHC 32.5 g/dL (32.0-37.0); MCV 93.4 FL (80.0-97.0); Mean Platelet Volume 9.8 FL (9.5-12.2); Monocytes # (A) 1.32 X 10*3/uL (0.20-1.00); NRBC Per 100 WBC 0 X 10*3/uL (0.00-0.01); Neutrophils # (A) 8.06 X 10*3/uL (1.80-7.70); Neutrophils % (A) 67.4 %; Platelet Count 371 X 10*3/uL (140-440); Potassium 3.6 mmol/L (3.5-5.5); RBC 2.57 X 10*6/uL (4.10-5.20); RDW 14.6 % (11.5-14.5); Sodium 137 mmol/L (135-145); WBC 11.97 X 10*3/uL (4.50-10.00)
--- NOTE | 2024-03-06 12:33 | P.PN ---
Subjective Progress Note Date: 03/06/24 This is a 48-year-old female seen recently by Dr. holder on outpatient basis with chronic panniculus, patient underwent panniculectomy on 03/01/2024 and repair of incisional hernia, her immediate postoperative course was uneventful. Today the patient was noted to have some more bleeding and some blood clots noted in the RAKAN drains from her surgical site. In the meantime she was also noted to have low blood pressure, I was asked to see the patient on consultation and transfer to ICU. In the meantime I recommended fluid boluses patient received a total of 1.5 L of saline, and her primary care physician ordered a unit of blood. I evaluated the patient in the ICU, by the time she arrived to the ICU, her blood pressure stabilized, patient did not require any pressors, remains on IV fluids, and she is yet to receive a unit of packed RBCs that was ordered by surgery. During my evaluation, patient had no shortness of breath no cough no wheezing she had no chest pain no nausea no vomiting no abdominal pain she had no palpitations. She had no dysuria frequency or urgency. Continues to have bloody drainage into the RAKAN drains. Hemoglobin today is 10.2 went down from 12.9 yesterday. The rest of the labs were basically unremarkable, she did have a leukocytosis with WBC count of 16.9 platelets were noted to be normal Was seen today on 03/03/2024, remains in the ICU, responded well to fluids and to 1 unit of packed RBCs given to her yesterday by surgery. Hemoglobin today is 9.8, patient is doing great, asymptomatic, continues to have LR at 125 cc/h. Patient is on room air, hemodynamically stable, she has good urine output, hence I will arrange for the patient to be transferred back out to medical surgical floor. The patient is seen today March 04, 2024 in follow-up on the regular medical floor. She was transferred out of the intensive care unit yesterday. She is awake and alert in no acute distress. Sitting up at the bedside. She is maintaining good O2 saturations in the 90s on room air. She is afebrile. Hemodynamically stable. White count 18.4. Hemoglobin 8.0. Platelets 279. Sodium 137. Potassium 3.9. Bicarb 24. BUN 8. Creatinine 0.7. Glucose 131. The patient is seen today March 05, 2024 in follow-up on the regular medical floor. She is currently sitting up in a chair at the bedside. Awake and alert in no acute distress. She is maintaining good O2 saturations in the 90s on room air. She is afebrile. Hemodynamically stable. White count 15.1. Hemoglobin 7.5. Platelets 289. Sodium 138. Potassium 3.8. Bicarb 29. BUN 5. Creatinine 0.6. Glucose 101. She is receiving [place] and Dilaudid intermittently for pain control. She is working well with the incentive spirometer. The patient is seen today March 06, 2024 in follow-up on the regular medical floor. She is up ambulating with help and a walker. Denies any worsening s hortness of breath, cough or congestion. Maintaining good O2 saturation in the 90s on room air. White count 11.9. Hemoglobin 7.8. Platelets 371. Sodium 137. Potassium 3.6. Bicarb 26. BUN 7. Creatinine 0.7. Glucose 116. She is tolerating a regular diet. Blood cultures revealed no growth. She remains on Zosyn. Objective - Vital Signs Vital signs: Vital Signs Temp 98.2 F 03/06/24 08:15 Pulse 77 03/06/24 08:15 Resp 17 03/06/24 08:15 BP 137/88 03/06/24 08:15 Pulse Ox 97 03/06/24 08:15 FiO2 Intake & Output 03/05/24 03/06/24 03/06/24 18:59 06:59 18:59 Intake Total 120 Output Total 25 30 15 Balance -25 90 -15 Intake: Oral 120 Output: Drainage 25 30 15 Left 10 15 5 Right 15 15 10 Other: Voiding Method Toilet Toilet # Voids 1 4 1 - Exam GENERAL EXAM: Alert, pleasant 48-year-old female, up with assistance, on room air, in no apparent distress. HEAD: Normocephalic. EYES: Normal reaction of pupils, equal size. NOSE: Clear with pink turbinates. THROAT: No erythema or exudates. NECK: No masses, no JVD. CHEST: No chest wall deformity. LUNGS: Equal air entry with no crackles, wheeze, rhonchi or dullness. CVS: S1 and S2 normal with no audible murmur, regular rhythm. ABDOMEN: Abdominal binder in place. RAKAN drains in place. Normal bowel sounds, no guarding or rigidity. SPINE: No scoliosis or deformity SKIN: No rashes CENTRAL NERVOUS SYSTEM: No focal deficits, tone is normal in all 4 extremities. EXTREMITIES: There is no peripheral edema. No clubbing, no cyanosis. Peripheral pulses are intact. - Labs CBC & Chem 7: 03/06/24 06:20 03/06/24 06:20 Labs: Abnormal Lab Results - Last 24 Hours (Table) 03/06/24 03/06/24 Range/Units 06:20 06:20 WBC 11.97 H (4.50-10.00) X 10*3/uL RBC 2.57 L (4.10-5.20) X 10*6/uL Hgb 7.8 L (12.0-15.0) g/dL Hct 24.0 L (37.2-46.3) % RDW 14.6 H (11.5-14.5) % Neutrophils # 8.06 H (1.80-7.70) X 10*3/uL Monocytes # 1.32 H (0.20-1.00) X 10*3/uL Eosinophils # 0.47 H (0.04-0.35) X 10*3/uL BUN 6.8 L (9.0-27.0) mg/dL BUN/Creatinine Ratio 9.71 L (12.00-20.00) Ratio Glucose 116 H (70-110) mg/dL Calcium 8.3 L (8.7-10.3) mg/dL Microbiology - Last 24 Hours (Table) 03/03/24 14:36 Blood Culture - Preliminary Blood Assessment and Plan Assessment: Hypotension secondary to hypovolemia and abdominal wall blood loss. Received 1 unit of packed red blood cells. Improved. Did not require pressors. Transferred out of the intensive care unit History of panniculitis status post panniculectomy postoperative day #5 History of fibromyalgia History of GERD/reflux History of bariatric surgery Kiya-en-Y 2006 Plan: The patient was seen and evaluated Labs and medications reviewed Encouraged the increased use of the incentive spirometer Stable and on room air On Zosyn per surgical services Continue to monitor hemoglobin I have personally seen and examined the patient, performed the documentation and the assessment and plan as written. Number of minutes spent on the visit: 10 Dictation was produced using [email or web address] dictation software. Please excuse any grammatical, word or spelling errors.
--- NOTE | 2024-03-06 15:52 | P.PN ---
Subjective Progress Note Date: 03/06/24 No acute events overnight. Patient states that her pain is currently well- controlled. No nausea or emesis. No fevers or chills. No shortness of breath or chest pain. Patient ambulatory and voiding. Endorses flatus, but no bowel movement. Tolerating diet without issue. Objective - Vital Signs Vital signs: Vital Signs Temp 98.2 F 03/06/24 08:15 Pulse 77 03/06/24 08:15 Resp 17 03/06/24 08:15 BP 137/88 03/06/24 08:15 Pulse Ox 97 03/06/24 08:15 FiO2 Intake & Output 03/05/24 03/06/24 03/06/24 18:59 06:59 18:59 Intake Total 120 Output Total 25 30 15 Balance -25 90 -15 Intake: Oral 120 Output: Drainage 25 30 15 Left 10 15 5 Right 15 15 10 Other: Voiding Method Toilet Toilet # Voids 1 4 2 - Exam Gen: AxO, NAD Pulm: non-labored respirations Abd: soft, minimally tender around incisions. Non-distended. No guarding/rebound/rigidity RAKAN x2: C/D/I, producing scant serosang output Extrem: no edema seen - Labs CBC & Chem 7: 03/06/24 06:20 03/06/24 06:20 Labs: Abnormal Lab Results - Last 24 Hours (Table) 03/06/24 03/06/24 Range/Units 06:20 06:20 WBC 11.97 H (4.50-10.00) X 10*3/uL RBC 2.57 L (4.10-5.20) X 10*6/uL Hgb 7.8 L (12.0-15.0) g/dL Hct 24.0 L (37.2-46.3) % RDW 14.6 H (11.5-14.5) % Neutrophils # 8.06 H (1.80-7.70) X 10*3/uL Monocytes # 1.32 H (0.20-1.00) X 10*3/uL Eosinophils # 0.47 H (0.04-0.35) X 10*3/uL BUN 6.8 L (9.0-27.0) mg/dL BUN/Creatinine Ratio 9.71 L (12.00-20.00) Ratio Glucose 116 H (70-110) mg/dL Calcium 8.3 L (8.7-10.3) mg/dL Microbiology - Last 24 Hours (Table) 03/03/24 14:36 Blood Culture - Preliminary Blood Assessment and Plan Plan: Patient is a 48-year-old female who is postop day 5 from incisional hernia repair with panniculectomy -Diet as tolerated - PRN Pain and nausea control -IV fluid hydration -IV antibiotics -Encourage ambulation -Trend WBC: Currently downtrending Contreras Rodriguez M.D. General Surgery
--- NOTE | 2024-03-07 05:08 | PN ---
PROGRESS NOTE DATE OF SERVICE: 03/06/2024 SUBJECTIVE: This is a 48-year-old woman, who was admitted with panniculectomy, had multiple medical issues including pain issues and as well as hypotension also. The patient's white count is elevated. The patient is on empiric antibiotics per Surgery. Cultures are negative. OBJECTIVE: VITAL SIGNS: Pulse is 105, blood pressure 141/82, respirations 16. HEENT: Conjunctivae normal. NECK: No JVD. CARDIOVASCULAR: S1, S2. RESPIRATIONS: Breath sounds diminished at the bases. ABDOMEN: Soft, status post surgery. LEGS: No edema. NERVOUS SYSTEM: Nonfocal. LABORATORY DATA: WBC 11.97. Other labs are noted. ASSESSMENT: 1. Status post panniculectomy as well as incisional hernia repair. 2. Significant bleeding from the RAKAN drain with acute blood loss anemia with resultant hypotension. 3. Increased WBC, on antibiotics. 4. Severe pain. 5. Elevated lactic acid. 6. History of fibromyalgia. 7. Multiple complex medical issues. RECOMMENDATIONS: Recommend to continue current management and continue symptomatic treatment. Repeat labs in the morning. Otherwise, closely follow with Surgery. Symptomatic treatment. Further recommendations to follow. MMODL / IJN: [id number] /
[2024-03-07 09:52] LABS: BUN/Creat Ratio 11.43 Ratio (12.00-20.00); Calcium 8.2 mg/dL (8.7-10.3); Carbon Dioxide 28.5 mmol/L (21.6-31.8); Chloride 104 mmol/L (96-109); Glucose 109 mg/dL (70-110); Sodium 140 mmol/L (135-145)
[2024-03-07 09:58] LABS: Basophils # (A) 0.05 X 10*3/uL (0.00-0.10); Basophils % (A) 0.4 %; Eosinophils # (A) 0.57 X 10*3/uL (0.04-0.35); Eosinophils % (A) 4.6 %; HCT 22.6 % (37.2-46.3); HGB 7.2 g/dL (12.0-15.0); Lymphocytes # (A) 2.41 X 10*3/uL (0.90-5.00); Lymphocytes % (A) 19.6 %; MCH 31.3 pg (27.0-32.0); MCHC 31.9 g/dL (32.0-37.0); MCV 98.3 FL (80.0-97.0); Mean Platelet Volume 9.6 FL (9.5-12.2); Monocytes # (A) 1.35 X 10*3/uL (0.20-1.00); NRBC Per 100 WBC 0 X 10*3/uL (0.00-0.01); Neutrophils # (A) 7.87 X 10*3/uL (1.80-7.70); Platelet Count 382 X 10*3/uL (140-440); RDW 14.7 % (11.5-14.5)
--- NOTE | 2024-03-07 10:22 | P.PN ---
Subjective Progress Note Date: 03/07/24 This is a 48-year-old female seen recently by Dr. holder on outpatient basis with chronic panniculus, patient underwent panniculectomy on 03/01/2024 and repair of incisional hernia, her immediate postoperative course was uneventful. Today the patient was noted to have some more bleeding and some blood clots noted in the RAKAN drains from her surgical site. In the meantime she was also noted to have low blood pressure, I was asked to see the patient on consultation and transfer to ICU. In the meantime I recommended fluid boluses patient received a total of 1.5 L of saline, and her primary care physician ordered a unit of blood. I evaluated the patient in the ICU, by the time she arrived to the ICU, her blood pressure stabilized, patient did not require any pressors, remains on IV fluids, and she is yet to receive a unit of packed RBCs that was ordered by surgery. During my evaluation, patient had no shortness of breath no cough no wheezing she had no chest pain no nausea no vomiting no abdominal pain she had no palpitations. She had no dysuria frequency or urgency. Continues to have bloody drainage into the RAKAN drains. Hemoglobin today is 10.2 went down from 12.9 yesterday. The rest of the labs were basically unremarkable, she did have a leukocytosis with WBC count of 16.9 platelets were noted to be normal Was seen today on 03/03/2024, remains in the ICU, responded well to fluids and to 1 unit of packed RBCs given to her yesterday by surgery. Hemoglobin today is 9.8, patient is doing great, asymptomatic, continues to have LR at 125 cc/h. Patient is on room air, hemodynamically stable, she has good urine output, hence I will arrange for the patient to be transferred back out to medical surgical floor. The patient is seen today March 04, 2024 in follow-up on the regular medical floor. She was transferred out of the intensive care unit yesterday. She is awake and alert in no acute distress. Sitting up at the bedside. She is maintaining good O2 saturations in the 90s on room air. She is afebrile. Hemodynamically stable. White count 18.4. Hemoglobin 8.0. Platelets 279. Sodium 137. Potassium 3.9. Bicarb 24. BUN 8. Creatinine 0.7. Glucose 131. The patient is seen today March 05, 2024 in follow-up on the regular medical floor. She is currently sitting up in a chair at the bedside. Awake and alert in no acute distress. She is maintaining good O2 saturations in the 90s on room air. She is afebrile. Hemodynamically stable. White count 15.1. Hemoglobin 7.5. Platelets 289. Sodium 138. Potassium 3.8. Bicarb 29. BUN 5. Creatinine 0.6. Glucose 101. She is receiving [place] and Dilaudid intermittently for pain control. She is working well with the incentive spirometer. The patient is seen today March 06, 2024 in follow-up on the regular medical floor. She is up ambulating with help and a walker. Denies any worsening s hortness of breath, cough or congestion. Maintaining good O2 saturation in the 90s on room air. White count 11.9. Hemoglobin 7.8. Platelets 371. Sodium 137. Potassium 3.6. Bicarb 26. BUN 7. Creatinine 0.7. Glucose 116. She is tolerating a regular diet. Blood cultures revealed no growth. She remains on Zosyn. The patient is seen today March 07, 2024 in follow-up on the regular medical floor. She is currently resting in bed. Awake and alert in no acute distress. He is maintaining good O2 saturations up to 100% on room air. She is afebrile. Hemodynamically stable. White count 12.3. Hemoglobin 7.2. Platelets 382. Sodium 140. Potassium 4.0. Bicarb 29. BUN 8. Creatinine 0.7. Glucose 109. Pain is well-controlled. She remains on antibiotics in the form of Zosyn. P rotonix for GI prophylaxis. Objective - Vital Signs Vital signs: Vital Signs Temp 98.8 F 03/07/24 07:25 Pulse 87 03/07/24 07:25 Resp 20 03/07/24 07:25 BP 132/89 03/07/24 07:25 Pulse Ox 100 03/07/24 07:25 FiO2 Intake & Output 03/06/24 03/07/24 03/07/24 18:59 06:59 18:59 Intake Total 1855 Output Total 40 20 60 Balance -40 1835 -60 Intake: Oral 1855 Output: Drainage 40 20 60 Left 15 30 Right 25 20 30 Other: Voiding Method Toilet # Voids 3 7 - Exam GENERAL EXAM: Alert, 48-year-old female, resting in bed, on room air, in no apparent distress. HEAD: Normocephalic. EYES: Normal reaction of pupils, equal size. NOSE: Clear with pink turbinates. THROAT: No erythema or exudates. NECK: No masses, no JVD. CHEST: No chest wall deformity. LUNGS: Equal air entry with no crackles, wheeze, rhonchi or dullness. CVS: S1 and S2 normal with no audible murmur, regular rhythm. ABDOMEN: Abdominal binder in place. RAKAN drains in place. Normal bowel sounds, no guarding or rigidity. SPINE: No scoliosis or deformity SKIN: No rashes CENTRAL NERVOUS SYSTEM: No focal deficits, tone is normal in all 4 extremities. EXTREMITIES: There is no peripheral edema. No clubbing, no cyanosis. Peripheral pulses are intact. - Labs CBC & Chem 7: 03/07/24 03:01 03/07/24 03:01 Labs: Abnormal Lab Results - Last 24 Hours (Table) 03/07/24 03/07/24 Range/Units 03:01 03:01 WBC 12.30 H (4.50-10.00) X 10*3/uL RBC 2.30 L (4.10-5.20) X 10*6/uL Hgb 7.2 L (12.0-15.0) g/dL Hct 22.6 L (37.2-46.3) % MCV 98.3 H (80.0-97.0) FL MCHC 31.9 L (32.0-37.0) g/dL RDW 14.7 H (11.5-14.5) % Immature Gran # 0.05 H (0.00-0.04) X 10*3/uL Neutrophils # 7.87 H (1.80-7.70) X 10*3/uL Monocytes # 1.35 H (0.20-1.00) X 10*3/uL Eosinophils # 0.57 H (0.04-0.35) X 10*3/uL BUN 8.0 L (9.0-27.0) mg/dL BUN/Creatinine Ratio 11.43 L (12.00-20.00) Ratio Calcium 8.2 L (8.7-10.3) mg/dL Microbiology - Last 24 Hours (Table) 03/03/24 14:36 Blood Culture - Preliminary Blood Assessment and Plan Assessment: Hypotension secondary to hypovolemia and abdominal wall blood loss. Received 1 unit of packed red blood cells. Improved. Did not require pressors. Transferred out of the intensive care unit History of panniculitis status post panniculectomy postoperative day #6 History of fibromyalgia History of GERD/reflux History of bariatric surgery Kiya-en-Y 2006 Plan: The patient was seen and evaluated Labs and medications reviewed Encouraged the use of the incentive spirometer Stable and on room air On Zosyn per surgical services Continue to monitor hemoglobin Increase her activity as tolerated This patient was seen independently by the pulmonary nurse practitioner addressing pulmonary issues I have personally seen and examined the patient, performed the documentation and the assessment and plan as written. Number of minutes spent on the visit: 24 Dictation was produced using [employer] dictation software. Please excuse any grammatical, word or spelling errors.
--- NOTE | 2024-03-07 12:21 | P.PN ---
Subjective Progress Note Date: 03/07/24 Patient feels slightly better today. She still is tired. She states her pain has improved slightly. On exam vital signs appear stable. Abdomen is soft. The previous area at the lower incision which was purpleish is now improved in color. The RAKAN drain is serosanguineous. Patient will stop her Dilaudid today. We dissipate discharge home tomorrow on oral pain medication. Objective - Vital Signs Vital signs: Vital Signs Temp 98.8 F 03/07/24 07:25 Pulse 87 03/07/24 07:25 Resp 20 03/07/24 07:25 BP 132/89 03/07/24 07:25 Pulse Ox 100 03/07/24 07:25 FiO2 Intake & Output 03/06/24 03/07/24 03/07/24 18:59 06:59 18:59 Intake Total 1855 Output Total 40 20 60 Balance -40 1835 -60 Intake: Oral 1855 Output: Drainage 40 20 60 Left 15 30 Right 25 20 30 Other: Voiding Method Toilet # Voids 3 7 - Labs CBC & Chem 7: 03/07/24 03:01 03/07/24 03:01 Labs: Abnormal Lab Results - Last 24 Hours (Table) 03/07/24 03/07/24 Range/Units 03:01 03:01 WBC 12.30 H (4.50-10.00) X 10*3/uL RBC 2.30 L (4.10-5.20) X 10*6/uL Hgb 7.2 L (12.0-15.0) g/dL Hct 22.6 L (37.2-46.3) % MCV 98.3 H (80.0-97.0) FL MCHC 31.9 L (32.0-37.0) g/dL RDW 14.7 H (11.5-14.5) % Immature Gran # 0.05 H (0.00-0.04) X 10*3/uL Neutrophils # 7.87 H (1.80-7.70) X 10*3/uL Monocytes # 1.35 H (0.20-1.00) X 10*3/uL Eosinophils # 0.57 H (0.04-0.35) X 10*3/uL BUN 8.0 L (9.0-27.0) mg/dL BUN/Creatinine Ratio 11.43 L (12.00-20.00) Ratio Calcium 8.2 L (8.7-10.3) mg/dL Microbiology - Last 24 Hours (Table) 03/03/24 14:36 Blood Culture - Preliminary Blood
--- NOTE | 2024-03-07 15:57 | XR ---
EXAMINATION TYPE: XR chest 1V DATE OF EXAM: 03/07/2024 3:45 PM COMPARISON: Previous chest radiograph 03/03/2024. CLINICAL INDICATION: Female, 48 years old with history of chf; [facility] TECHNIQUE: XR chest 1V Frontal view of the chest. FINDINGS: Cardiomegaly. Patchy right lung base opacity felt to favor atelectasis. No sizable pleural effusion. Low lung volumes. No appreciable pneumothorax. No acute osseous abnormality. IMPRESSION: 1. Patchy right lung base basilar infiltrate or atelectasis. 2. Cardiomegaly without sizable pleural effusion. [facility], , 03/07/2024 3:54 PM
[2024-03-07] MEDS: FERROUS SULFATE 325 MG TAB PO SCH (15:58)
[2024-03-07] MEDS: HYDROcodone/APAP 10-325MG 1 EACH TAB PO PRN (17:01)
[2024-03-08 08:42] LABS: BUN/Creat Ratio 12.29 Ratio (12.00-20.00); Blood Urea Nitrogen 8.6 mg/dL (9.0-27.0); Calcium 8.4 mg/dL (8.7-10.3); Carbon Dioxide 25.1 mmol/L (21.6-31.8); Chloride 103 mmol/L (96-109); Glucose 91 mg/dL (70-110); Potassium 3.9 mmol/L (3.5-5.5); Sodium 138 mmol/L (135-145)
[2024-03-08 08:46] LABS: Basophils # (A) 0.05 X 10*3/uL (0.00-0.10); Basophils % (A) 0.5 %; Eosinophils # (A) 0.48 X 10*3/uL (0.04-0.35); Eosinophils % (A) 4.3 %; HCT 23.3 % (37.2-46.3); HGB 7.4 g/dL (12.0-15.0); Lymphocytes # (A) 2.41 X 10*3/uL (0.90-5.00); Lymphocytes % (A) 21.8 %; MCH 30.3 pg (27.0-32.0); MCHC 31.8 g/dL (32.0-37.0); MCV 95.5 FL (80.0-97.0); Mean Platelet Volume 9.1 FL (9.5-12.2); Monocytes # (A) 1.27 X 10*3/uL (0.20-1.00); Monocytes % (A) 11.5 %; NRBC Per 100 WBC 0 X 10*3/uL (0.00-0.01); Neutrophils # (A) 6.78 X 10*3/uL (1.80-7.70); Neutrophils % (A) 61.4 %; Platelet Count 436 X 10*3/uL (140-440); RBC 2.44 X 10*6/uL (4.10-5.20); RDW 14.5 % (11.5-14.5); WBC 11.04 X 10*3/uL (4.50-10.00)
[2024-03-08 08:56] LABS: NT-Pro-B-Type Natriuretic Pept 151 pg/mL (0-125)
--- NOTE | 2024-03-08 09:30 | PN ---
PROGRESS NOTE DATE OF SERVICE: 03/07/2024 SUBJECTIVE: This is a 48-year-old woman, who was admitted after panniculectomy, is improving significantly. No chest pain. No palpitation. PHYSICAL EXAMINATION: VITAL SIGNS: On exam, pulse 78, blood pressure ntd, respirations 20. CHEST: Clear to auscultation. ABDOMEN: Soft, status post surgery. LABORATORY DATA: WBC 7, hemoglobin 7.2. ASSESSMENT: 1. Status post panniculectomy as well as incisional hernia repair. 2. Significant bleeding from RAKAN drain with acute blood loss anemia with resultant hypotension. 3. Increased WBC, on antibiotics. 4. Severe pain. 5. Elevated lactic acid. 6. Fibromyalgia. 7. Multiple complex medical issues. RECOMMENDATIONS: Recommend to continue current management and recommend repeat labs and if hemoglobin less than 7, I would transfuse otherwise, add iron tablet to the current regimen. Guarded prognosis. Further recommendations to follow. JOSHUAL / OSWALDON: [id number] / MTDD
--- NOTE | 2024-03-08 14:19 | P.DS ---
Providers Date of admission: 03/01/24 08:43 Expected date of discharge: 03/08/24 Attending physician: Jacky Figueroa Consults: 03/01/24 14:06 Consult Physician Routine Consulting Provider: Subhash Valadez Consult Reason/Comments: med manage Do you want consulting provider notified?: Yes 03/02/24 12:43 Consult Physician Stat Consulting Provider: Olivia Ramos Consult Reason/Comments: ICU management Do you want consulting provider notified?: Already Contacted Primary care physician: Nicholas Mijares Hospital Course: Discharge diagnosis 1. Panniculus with chronic skin irritation 2. Hypotension improved with IV fluids and blood transfusion 3. Acute blood loss anemia after surgery improved with blood transfusion 4. Leukocytosis poss related to infection at incision site. Hospital course This is a 48-year-old female with a known history of panniculus with chronic skin irritation. She is status post panniculectomy. During her hospitalization she did require transfer to the ICU due to hypotension which did improve with IV fluids and blood transfusion. She also had evidence of acute blood loss anemia and required a blood transfusion. Hemoglobin is currently stable. Patient's pain is controlled. She is tolerating diet. She is having flatus. She has been up and ambulating. She is afebrile. Patient does have purpleish and dark skin discoloration in the mid lower incision. Surgeon is aware. He Dr. Figueroa has cleared her for discharge with close outpatient follow-up. Patient will be discharged with oral antibiotic. Patient is stable for discharge. P lease refer to chart for any further details. Physician Distributor Sales Manager note has been reviewed by physician. Signing provider agrees with the documented findings, assessment, and plan of care. Patient Condition at Discharge: Stable Plan - Discharge Summary Discharge Rx Participant: Yes New Discharge Prescriptions: New Amoxic-Pot Clav 875-125Mg [Augmentin 875-125] 1 tab PO Q12HR 10 Days #20 tab HYDROcodone/APAP 5-325MG [[place] 5-325] 1 tab PO Q6HR PRN 3 Days #12 tab PRN Reason: Pain Discontinued Ibuprofen [Motrin] 800 mg PO Q8HR PRN PRN Reason: Pain No Action Aspirin/Acetaminophen/Caffeine [Excedrin Migraine Caplet] 2 each PO DIREC MICHELLE PRN PRN Reason: migraines Amlodipine Besylate/Valsartan [Amlodipine Besylate/Valsartan 10-160 mg] 1 tab PO QAM hydrOXYzine HCL [Hydroxyzine HCl] 25 mg PO HS PRN PRN Reason: Insomnia Atorvastatin [Lipitor] 10 mg PO DAILY Loratadine [Claritin] 10 mg PO DAILY PRN PRN Reason: ALLERGIS Amphetamine Sulfate 20 mg PO BID Discharge Medication List Aspirin/Acetaminophen/Caffeine [Excedrin Migraine Caplet] 2 each PO DIRECTED PRN 04/26/20 [History] Amlodipine Besylate/Valsartan [Amlodipine Besylate/Valsartan 10-160 mg] 1 tab PO QAM 12/31/23 [History] hydrOXYzine HCL [Hydroxyzine HCl] 25 mg PO HS PRN 02/25/24 [History] Amphetamine Sulfate 20 mg PO BID 03/01/24 [History] Atorvastatin [Lipitor] 10 mg PO DAILY 03/01/24 [History] Loratadine [Claritin] 10 mg PO DAILY PRN 03/01/24 [History] Amoxic-Pot Clav 875-125Mg [Augmentin 875-125] 1 tab PO Q12HR 10 Days #20 tab 03/08/24 [Rx] HYDROcodone/APAP 5-325MG [[place] 5-325] 1 tab PO Q6HR PRN 3 Days #12 tab 03/08/24 [Rx] Follow up Appointment(s)/Referral(s): Nicholas Mijares MD [Primary Care Provider] - As Needed [facility], [NON-STAFF] - As Needed (In order for [facility] care to follow on d/c, you will first have to follow up with .) Jacky Figueroa MD [STAFF PHYSICIAN] - 03/11/24 Activity/Diet/Wound Care/Special Instructions: No driving while taking [place] No lifting over 10 pounds Shower daily. No soaking or tub baths for 2 weeks Very light activity until you are reevaluated at your follow up appointment with your surgeon Keep a log of RAKAN drain output and bring with you to your follow-up appointment Milk/strip drains 2-3 times a day Discharge Disposition: HOME SELF-CARE
[2024-03-08 15:11] VITALS: BP 142/87; PULSE 85; RESP 16; TEMP 98.2
[2024-03-08 15:32] VITALS: BMI 36.3
--- NOTE | 2024-03-09 06:39 | PN ---
PROGRESS NOTE DATE OF SERVICE: 03/08/2024 SUBJECTIVE: This is a 48-year-old woman, who was admitted after panniculectomy, had multiple complex medical issues. No chest pain. No palpitation. She is improving. OBJECTIVE: VITAL SIGNS: Pulse is 94, blood pressure 116/84, respirations 18. HEENT: Conjunctivae normal. NECK: No JVD. CARDIOVASCULAR: S1, S2. RESPIRATIONS: Breath sounds diminished at the bases. ABDOMEN: Soft, nontender. LABORATORY DATA: Chest x-ray reviewed, possible atelectasis. ASSESSMENT: 1. Status post panniculectomy as well as incisional hernia repair. 2. Significant bleeding from the RAKAN drain with acute blood loss anemia with resultant hypotension. 3. Atelectasis. 4. Increased WBC on antibiotics. 5. Severe pain. 6. Elevated lactic acid. 7. Fibromyalgia. RECOMMENDATIONS: Recommend to continue current management and continue symptomatic treatment. I recommend to continue the course of antibiotics. Outpatient followup with primary physician, Dr. Mijares in 1 week and incentive spirometry. Follow up with Surgery as recommended. Rest of recommendations per Surgery. Further recommendations to follow. MMODL / IJN: [id number] /
--- NOTE | 2024-03-11 16:18 | CDI ---
Documentation Clarification Form Date: 03/11/2024 12:00:00 AM From: Ludwin Rao Admit Date: 03/01/2024 08:43:00 AM Patient Name: Della Vallejo Visit Number: [id number] Discharge Date: 03/08/2024 04:43:00 PM ATTENTION: The Clinical Documentation Specialists (CDI) and [facility] Coding Staff appreciate your assistance in clarifying documentation. Please respond to the clarification below the line at the bottom and electronically sign. The CDI & [facility] Coding staff will review the response and follow-up if needed. Please note: Queries are made part of the Legal Health Record. If you have any questions, please contact the author of this message via ITS. Doctor/Provider: Nicole Moser The patient has tachycardia, tachypnea, leukocytosis, and an elevated lactic acid. Based on this information and the findings below, is there an additional diagnosis that is clinically appropriate for this patient? 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 Patient underwent panniculectomy and repair of incisional hernia on 03/01/2024. Clinical Indicators: 03/02/24 12:52 Progress note: Patient became hypotensive and tachycardic this afternoon after rounds. "Vickey" was called. She has been taking to the ICU. 1 L fluid bolus ordered 1 unit of packed red blood cells ordered. 03/02 Pulmonology consult: Hypotension secondary to hypovolemia and abdominal wall blood loss - In the meantime she was also noted to have low blood pressure, I was asked to see the patient on consultation and transfer to ICU. In the meantime I recommended fluid boluses patient received a total of 1.5 L of saline, and her primary care physician ordered a unit of blood. I evaluated the patient in the ICU, by the time she arrived to the ICU, her blood pressure stabilized, patient did not require any pressors, remains on IV fluids, and she is yet to receive a unit of packed RBCs that was ordered by surgery she did have a leukocytosis with WBC count of 16.9 Date from EMR: Date 03/01 03/02 03/02 03/03 03/04 03/05 BP 183/101 78/47 111/81 99/83 123/81 137/87 HR 96 58 82 100 97 84 RR 16 26 22 14 17 17 WBC 9.4 16.9 21.7 18.6 18.48 15.17 LA - 3.3 2.32.8 - - - HGB 12.9 10.2 10.1 9.8 8.0 7.5 Treatment: 0.9% NS 1.5L bolus (03/02), Zosyn (03/05-03/08), LR IVF 125ml/hr (03/01-03/04) Is there an additional diagnosis that is clinically appropriate for this patient? [ ] Non-infectious SIRS causing Lactic Acidosis [ ] Non-infectious SIRS without organ dysfunction [ ] No additional diagnosis/not clinically significant [ ] Other, please specify [ ] Unable to determine SIRS Criteria: 2 or more of the following may indicate SIRS Temperature < 96.8F (36C) or > 101.0F (38.3C) Heart Rate > 90 bpm Respiratory Rate > 20 breaths/min or PaCO2 < 32 mmHg White Blood Cell Count > 12,000 or < 4,000 cells/mm3 or > 10% bands (Template Last Revised: April 2023) MTDD
== END 2024-03-08 16:43 | disposition home or self-care (01) | DRG 952 ==
LOC: OR 08:42 → 2SICU 08:43 → 5NMEDONC 13:35 → 2SICU 03-02 12:50 → 5NMEDONC 03-02 12:50 → 2SICU 03-02 13:15 → UNDOFXSDCACCOM 03-02 13:15 → UNDOFXSDCSVC 03-02 13:15 → 4SSUR 03-03 20:55
PROVIDERS: ADMIT Surgery; ATTEND Surgery
PROC: 0JB80ZZ Excision of Abdomen Subcutaneous Tissue and Fascia, Open Approach (ICD-10-PCS; 2024-03-01)
PROC: 0WQF0ZZ Repair Abdominal Wall, Open Approach (ICD-10-PCS; principal; 2024-03-01 10:45)
DX: I95.89 Other hypotension (principal); M79.3 Panniculitis, unspecified; K43.2 Incisional hernia without obstruction or gangrene; I10 Essential (primary) hypertension; M79.7 Fibromyalgia; D62 Acute posthemorrhagic anemia; E86.1 Hypovolemia; E87.20 Acidosis, unspecified; F41.0 Panic disorder [episodic paroxysmal anxiety]; Z79.899 Other long term (current) drug therapy; Z87.11 Personal history of peptic ulcer disease; Z98.84 Bariatric surgery status; Z87.891 Personal history of nicotine dependence
CPT/HCPCS: 64999; 71045; 80048; 80053; 81001; 83605; 83735; 83880; 84484; 85025; 85027; 85610; 85730; 86850; 86900; 86901; 86920; 87040; 93005

== ENCOUNTER 2024-03-25 09:40 | Day surgery (SDC) | payer OTHER ==
--- NOTE | 2024-03-24 19:20 | P.GSHP ---
History of Present Illness H&P Date: 03/25/24 Chief Complaint: Abdominal wall skin and fat necrosis This is a 48-year-old female who underwent recent panniculectomy. Patient developed skin and fat necrosis of the midportion of the pannicular flap. This was most likely due to ischemia. Patient is history of smoking. Patient presents today for debridement of necrosis abdominal wall fat and skin. Patient has an area that measured approximately 10 x 10 x 5 cm. That is ischemic Past Medical History Past Medical History: Fibromyalgia, GERD/Reflux, Hyperlipidemia Additional Past Medical History / Comment(s): hx peptic ulcers, migraines, anemia -pcp monitoring HGB. open abdominal wound post pannis surgery ( pt states the size of a basketball). packs several times a day, nurse to the home once a week. pt states it is still black around the wound.( pt states in ICU post pannis surgery , 1 unit while in hospital)). History of Any Multi-Drug Resistant Organisms: None Reported Past Surgical History: Adenoidectomy, Bariatric Surgery, Section, Cholecystectomy, Ear Surgery, Hysterectomy, Orthopedic Surgery, Tonsillectomy, Uterine Ablation Additional Past Surgical History / Comment(s): PITO EN Y-2007, man carpal tunnel, C/S x 2 , hemorrhoidectomy. panniculectomy Past Anesthesia/Blood Transfusion Reactions: No Reported Reaction Additional Past Anesthesia/Blood Transfusion Reaction / Comment(s): Adopted- FAMILY HX UNKNOWN Smoking Status: Former smoker - Past Family History Mother Family Medical History: Unable to Obtain Additional Family Medical History / Comment(s): Adopted Father Family Medical History: Unable to Obtain Additional Family Medical History / Comment(s): adopted Medications and Allergies Home Medications Medication Instructions Recorded Confirmed Type Aspirin/Acetaminophen/Caffeine 2 each PO DIRECTED PRN 04/26/20 03/23/24 History [Excedrin Migraine Caplet] hydrOXYzine HCL 25 mg PO HS PRN 02/25/24 03/23/24 History Atorvastatin [Lipitor] 10 mg PO DAILY 03/01/24 03/23/24 History Loratadine [Claritin] 10 mg PO DAILY PRN 03/01/24 03/23/24 History Ferrous Sulfate [Iron (65 MG 325 mg PO W/LUNCH #30 tab 03/08/24 03/23/24 Rx Elemental)] Sennosides [Senokot] 8.6 mg PO BID PRN tab 03/08/24 03/23/24 Rx Sucralfate [Carafate] 1 gm PO AC-TID 03/23/24 03/23/24 History Allergies Allergy/AdvReac Type Severity Reaction Status Date / Time Mushroom Allergy closes Verified 03/23/24 15:32 throat tomatoes Allergy hives, Uncoded 03/23/24 15:32 itching Surgical - Exam - General well developed, well nourished, no distress - Eyes PERRL - ENT normal pinna, normal nares - Neck no masses - Respiratory normal expansion - Cardiovascular Rhythm: regular - Abdomen There is an area of central skin and fat necrosis in the lower portion of the panniculus flap. Abdomen: soft, non tender Assessment and Plan Assessment: Skin and fat necrosis at after recent panniculectomy. Patient will undergo debridement with possible wound VAC placement.
[~2024-03-25 09:40] MED LIST changes: -LIDOCAINE 1% (10MG/ML) FOR IV START INTRADERMA PRN
[2024-03-25] MEDS: IV FLUID CONTINUATION 1,000 ML IV ONE (09:50)
[2024-03-25] MEDS: LACTATED RINGERS 1,000 ML IV SCH (10:25)
[2024-03-25] MEDS: ONDANSETRON 4 MG/2 ML VIAL IVP STA (10:29)
[2024-03-25] MEDS: DEXAMETHASONE SOD PHOSPHATE 4 MG/ML 1 ML VIAL IVP STA (10:30)
[2024-03-25] MEDS: FAMOTIDINE 20 MG/2 ML VIAL IV STA (10:30)
[2024-03-25 10:31] LABS: Basophils # (A) 0.1 k/uL (0-0.2); Basophils % (A) 1 %; Eosinophils # (A) 0.3 k/uL (0-0.7); Eosinophils % (A) 3 %; HCT 35.3 % (34.0-46.0); Hypochromasia Marked; Lymphocytes # (A) 1.9 k/uL (1.0-4.8); Lymphocytes % (A) 20 %; MCH 27.9 pg (25.0-35.0); MCHC 31.2 g/dL (31.0-37.0); MCV 89.4 fL (80.0-100.0); Mean Platelet Volume 6.7; Monocytes # (A) 0.6 k/uL (0-1.0); Monocytes % (A) 6 %; Neutrophils # (A) 6.6 k/uL (1.3-7.7); Neutrophils % (A) 68 %; Platelet Count 741 k/uL (150-450); Poikilocytosis Slight; RBC 3.95 m/uL (3.80-5.40); RDW 13.8 % (11.5-15.5); WBC 9.8 k/uL (3.8-10.6)
[2024-03-25] MEDS: ACETAMINOPHEN TAB 500 MG TAB PO PRN (10:31)
[2024-03-25] MEDS: HEPARIN SODIUM,PORCINE 5,000 UNIT/ML 1 ML VIAL SQ PRN (10:31)
[2024-03-25 10:41] LABS: African American GFR (CKD) >90 (>60 ml/min/1.73 sqM); Anion Gap 6 mmol/L; Blood Urea Nitrogen 8 mg/dL (7-17); Calcium 9.4 mg/dL (8.4-10.2); Carbon Dioxide 27 mmol/L (22-30); Chloride 105 mmol/L (98-107); Glucose 107 mg/dL (74-99); Non-African American GFR(CKD) >90 (>60 ml/min/1.73 sqM); Potassium 4.3 mmol/L (3.5-5.1); Sodium 138 mmol/L (137-145); Total Bilirubin 0.6 mg/dL (0.2-1.3); Total Protein 7.1 g/dL (6.3-8.2)
[2024-03-25 10:42] LABS: ALT 18 U/L (4-34); AST 21 U/L (14-36); Alkaline Phosphatase 105 U/L (38-126)
[2024-03-25] MEDS ORDERED: PROPOFOL 10 MG/ML 20 ML VIAL IV ONE (11:08)
[2024-03-25] MEDS ORDERED: ceFAZolin 1 GM/50 ML BAG (PMX) ONE (11:08)
[2024-03-25] MEDS ORDERED: LIDOCAINE 1% INJ 10MG/ML (20 ML MDV) ONE (11:08)
[2024-03-25] MEDS ORDERED: SUCCINYLCHOLINE CHLORIDE 200 MG/10 ML VIAL IV ONE (11:08)
[2024-03-25] MEDS ORDERED: fentaNYL (PF) 50 MCG/ML 2 ML AMP ONE (11:08)
[2024-03-25] MEDS ORDERED: MIDAZOLAM 2 MG/2 ML VIAL ONE (11:08)
[2024-03-25] MEDS: SODIUM CHLORIDE 0.9% 100 ML with ceFAZolin 2,000 MG IV ONE (11:13)
--- NOTE | 2024-03-25 11:57 | P.OP ---
Date of Procedure: 03/25/24 Preoperative Diagnosis: Abdominal wall skin and fat necrosis Postoperative Diagnosis: Abdominal wall skin and fat necrosis Procedure(s) Performed: Debridement of abdominal wall Anesthesia: ALEM Surgeon: Jacky Figueroa Estimated Blood Loss (ml): 20 Pathology: other (Ischemic skin and fat) Condition: stable Disposition: PACU Description of Procedure: The patient was placed on the operative table in the supine position. She received general trach tube anesthesia. Her abdomen was prepped and review sterile fashion. Patient had a portion of the abdominal wall which was necrotic. This area was sharply debrided. The wound measured approximately 13 x 10 x 6 cm. The wound was sharply debrided back to viable fat. The Pulsavac was used to further debride the wound. The wound was then packed with wet-to-dry Kerlix.
[2024-03-25 12:12] VITALS: TEMP 97.3
[2024-03-25 13:20] VITALS: RESP 18
[2024-03-25 13:50] VITALS: BP 109/78; PULSE 80
== END 2024-03-25 14:01 | disposition home or self-care (01) ==
LOC: OR 09:40
PROVIDERS: ATTEND Surgery
DX: K55.059 Acute (reversible) ischemia of intestine, part and extent unspecified (principal); K65.4 Sclerosing mesenteritis; K21.9 Gastro-esophageal reflux disease without esophagitis; E78.5 Hyperlipidemia, unspecified; M79.7 Fibromyalgia; G43.909 Migraine, unspecified, not intractable, without status migrainosus; K27.9 Peptic ulcer, site unspecified, unspecified as acute or chronic, without hemorrhage or perforation; Z87.891 Personal history of nicotine dependence; Z90.710 Acquired absence of both cervix and uterus; Z90.49 Acquired absence of other specified parts of digestive tract; Z79.02 Long term (current) use of antithrombotics/antiplatelets; Z79.899 Other long term (current) drug therapy
CPT/HCPCS: 80053; 85025; 11005; J2250; J0330; J1644; J1100; J2405; J0690 ×2; J2003; J3010; J3490; J2704; 88304

== ENCOUNTER 2024-04-07 10:53 | Inpatient (IN) | payer OTHER ==
[2024-04-07] MEDS: IV FLUID CONTINUATION 1,000 ML IV ONE ×2 (11:54→15:00)
[2024-04-07] MEDS: ACETAMINOPHEN TAB 500 MG TAB PO PRN (11:58)
[2024-04-07] MEDS: ONDANSETRON 4 MG/2 ML VIAL IVP STA ×2 (11:59→15:24)
[2024-04-07] MEDS: DEXAMETHASONE SOD PHOSPHATE 4 MG/ML 1 ML VIAL IVP STA (12:00)
[2024-04-07] MEDS: HEPARIN SODIUM,PORCINE 5,000 UNIT/ML 1 ML VIAL SQ PRN (12:03)
[2024-04-07] MEDS ORDERED: LIDOCAINE 1% INJ 10MG/ML (20 ML MDV) ONE (12:56)
[2024-04-07] MEDS ORDERED: fentaNYL (PF) 50 MCG/ML 2 ML AMP ONE (12:56)
[2024-04-07] MEDS ORDERED: LIDOCAINE 4% LTA KIT (4 ML) TOPICAL ONE (12:56)
[2024-04-07] MEDS ORDERED: MIDAZOLAM 2 MG/2 ML VIAL ONE (12:56)
[2024-04-07] MEDS ORDERED: PROPOFOL 10 MG/ML 20 ML VIAL IV ONE (12:56)
[2024-04-07] MEDS ORDERED: KETOROLAC 15 MG/ML 1 ML VIAL ONE (12:56)
[2024-04-07] MEDS ORDERED: SUCCINYLCHOLINE CHLORIDE 200 MG/10 ML VIAL IV ONE (12:56)
[2024-04-07] MEDS ORDERED: HYDROmorphone (PF) 1 MG/ML ONE (12:56)
--- NOTE | 2024-04-07 13:46 | P.OP ---
Date of Procedure: 04/07/24 Preoperative Diagnosis: Abdominal wall skin and fat necrosis Postoperative Diagnosis: Abdominal wall skin and fat necrosis Procedure(s) Performed: Excisional debridement of abdominal wall skin and fat necrosis Anesthesia: ALEM Surgeon: Jacky Figueroa Estimated Blood Loss (ml): 5 Pathology: other (Chronic skin and fat) Condition: stable Disposition: PACU Description of Procedure: The patient is placed on the op table in the supine position. She received general anesthesia. The patient's abdomen is prepped and review sterile fashion. Patient had a rim of necrotic skin and fat along the left lateral aspect of the wound. This was sharply debrided with a 15 blade scalpel. The excisional debridement measured approximately 2 x 10 cm. The wound is a previous. There is no bleeding seen. The wound was then packed with wet-to-dry Kerlix. Patient Toller procedure well. She was sent to recovery in stable condition.
[2024-04-07] MEDS: HYDROmorphone 0.5 MG/0.5 ML SYRINGE IVP PRN ×2 (14:05→22:37)
[2024-04-07] MEDS: HYDROmorphone 0.5 MG/0.5 ML SYRINGE IVP ONE (14:05)
[2024-04-07] MEDS: FAMOTIDINE 20 MG/2 ML VIAL IVP ONE (14:13)
[2024-04-07] MEDS: CITRIC ACID-SODIUM CITRATE 15 ML CUP PO ONE (14:53)
[2024-04-07] MEDS: MAG HYDROX/AL HYDROX/SIMETH 30 ML CUP PO STA (15:27)
[2024-04-07] MEDS ORDERED: NALOXONE 0.4 MG/ML 1 ML VIAL IV PRN (15:44)
[2024-04-07] MEDS: KETOROLAC 15 MG/ML 1 ML VIAL IVP SCH (17:17)
[2024-04-07] MEDS: Pre Op ABX Message 1 EACH MISC MISCELLANE ONE (19:10)
[2024-04-07] MEDS: LACTATED RINGERS 1,000 ML IV SCH (19:10)
[2024-04-07] MEDS: FAMOTIDINE 20 MG/2 ML VIAL IV SCH (20:08)
[2024-04-08] MEDS: HYDROmorphone 1 MG/ML 1 ML SYRINGE IVP PRN (02:14)
[2024-04-08] MEDS: ACETAMINOPHEN TAB 325 MG TAB PO PRN (05:13)
[2024-04-08] MEDS: ENOXAPARIN 40 MG/0.4 ML SYRINGE SQ SCH (08:38)
[2024-04-08 08:42] LABS: Basophils # (A) 0.03 X 10*3/uL (0.00-0.10); Basophils % (A) 0.2 %; Eosinophils # (A) 0 X 10*3/uL (0.04-0.35); Eosinophils % (A) 0 %; HCT 32.7 % (37.2-46.3); HGB 9.4 g/dL (12.0-15.0); Lymphocytes # (A) 1.18 X 10*3/uL (0.90-5.00); Lymphocytes % (A) 8.1 %; MCHC 28.7 g/dL (32.0-37.0); MCV 90.6 FL (80.0-97.0); Monocytes # (A) 1.03 X 10*3/uL (0.20-1.00); Monocytes % (A) 7.1 %; NRBC Per 100 WBC 0 X 10*3/uL (0.00-0.01); Neutrophils # (A) 12.17 X 10*3/uL (1.80-7.70); Neutrophils % (A) 84.1 %; Platelet Count 557 X 10*3/uL (140-440); RBC 3.61 X 10*6/uL (4.10-5.20); RDW 14.4 % (11.5-14.5); WBC 14.48 X 10*3/uL (4.50-10.00)
[2024-04-08 08:44] LABS: ALT 79 U/L (8-44); AST 94 U/L (13-35); Albumin 3.4 g/dL (3.8-4.9); Albumin/Globulin Ratio 1.21 Ratio (1.60-3.17); Alkaline Phosphatase 273 U/L (41-126); BUN/Creat Ratio 12.14 Ratio (12.00-20.00); Blood Urea Nitrogen 8.5 mg/dL (9.0-27.0); Calcium 9.1 mg/dL (8.7-10.3); Carbon Dioxide 22.9 mmol/L (21.6-31.8); Chloride 103 mmol/L (96-109); Globulin 2.8 g/dL (1.6-3.3); Glucose 117 mg/dL (70-110); Sodium 139 mmol/L (135-145); Total Bilirubin 0.2 mg/dL (0.3-1.2); Total Protein 6.2 g/dL (6.2-8.2)
[2024-04-08] MEDS: PIPERACILLIN-TAZOBACTAM 3.375 GM in SODIUM CHLORIDE 0.9% 100 ML IVPB SCH (11:53)
--- NOTE | 2024-04-08 14:01 | P.PN ---
Subjective Progress Note Date: 04/08/24 SURGICAL PROGRESS NOTE CHIEF COMPLAINT: Abdominal wall skin and fat necrosis HISTORY OF PRESENT ILLNESS: Patient is postop day #1 status post excisional debridement of abdominal wall skin and fat necrosis. Patient's pain is controlled. She complains of hemorrhoidal bleeding. Denies any nausea or vomi ting. Afebrile. Mild tachycardia resolved. WBC 14.48 Hgb 9.4 PHYSICAL EXAM: VITAL SIGNS: Reviewed. GENERAL: Well-developed in no acute distress. BDOMEN: Soft. Nondistended. Abdominal wound dressing clean dry and intact NEUROLOGIC: Alert and oriented. Cranial nerves II through XII grossly intact. ASSESSMENT: 1. Abdominal wall skin and fat necrosis status post debridement 2. Leukocytosis PLAN: -Antibiotics added due to leukocytosis -Change abdominal wall wound dressing today with wet-to-dry dressing -Apply wound VAC tomorrow -retail banking manager arranging home care -[place] added for oral pain medication -Senokot added for stool softener -Anusol hydrocortisone suppositories added for hemorrhoidal bleeding -Continue hospitalization due to social issues -Medicine service consulted for medical management Physician Global Security Architect note has been reviewed by physician. Signing provider agrees with the documented findings, assessment, and plan of care. Objective - Vital Signs Vital signs: Vital Signs Temp 98.4 F 04/08/24 11:52 Pulse 72 04/08/24 07:38 Resp 16 04/08/24 07:38 BP 117/82 04/08/24 07:38 Pulse Ox 98 04/08/24 07:38 FiO2 Intake & Output 04/07/24 04/08/24 04/08/24 18:59 06:59 18:59 Intake Total 900 Output Total 5 Balance 895 Weight 98.7 kg Intake: IV 900 Output: Estimated Blood Loss 5 Other: Voiding Method Toilet # Voids 1 5 - Labs CBC & Chem 7: 04/08/24 02:38 04/08/24 02:38 Labs: Abnormal Lab Results - Last 24 Hours (Table) 04/08/24 04/08/24 Range/Units 02:38 02:38 WBC 14.48 H (4.50-10.00) X 10*3/uL RBC 3.61 L (4.10-5.20) X 10*6/uL Hgb 9.4 L (12.0-15.0) g/dL Hct 32.7 L (37.2-46.3) % MCH 26.0 L (27.0-32.0) pg MCHC 28.7 L (32.0-37.0) g/dL Plt Count 557 H (140-440) X 10*3/uL MPV 9.0 L (9.5-12.2) FL Immature Gran # 0.07 H (0.00-0.04) X 10*3/uL Neutrophils # 12.17 H (1.80-7.70) X 10*3/uL Monocytes # 1.03 H (0.20-1.00) X 10*3/uL Eosinophils # 0 L (0.04-0.35) X 10*3/uL Anion Gap 13.10 H (4.00-12.00) mmol/L BUN 8.5 L (9.0-27.0) mg/dL Glucose 117 H (70-110) mg/dL Total Bilirubin 0.2 L (0.3-1.2) mg/dL AST 94 H (13-35) U/L ALT 79 H (8-44) U/L Alkaline Phosphatase 273 H (41-126) U/L Albumin 3.4 L (3.8-4.9) g/dL Albumin/Globulin Ratio 1.21 L (1.60-3.17) Ratio
[2024-04-08] MEDS: HYDROCORTISONE SUPPOSITORY 25 MG SUPP RECTAL SCH (14:03)
--- NOTE | 2024-04-08 14:39 | XR ---
EXAMINATION TYPE: XR chest 1V portable DATE OF EXAM: 04/08/2024 2:11 PM COMPARISON: Chest radiographs from 03/07/2024. CLINICAL INDICATION: Female, 48 years old with history of chf; TECHNIQUE: XR chest 1V portable Frontal view of the chest. FINDINGS: Lungs/Pleura: There is no evidence of pleural effusion, focal consolidation, or pneumothorax. Pulmonary vascularity: Unremarkable. Heart/mediastinum: Cardiomediastinal silhouette is prominent in size. Musculoskeletal: No acute osseous pathology. IMPRESSION: No acute cardiopulmonary disease/process. [facility], Workstation: [facility], 04/08/2024 2:37 PM
[2024-04-08] MEDS: ONDANSETRON 4 MG/2 ML VIAL IVP PRN (15:21)
[2024-04-08] MEDS: SENNOSIDES 8.6 MG TAB PO SCH (20:13)
--- NOTE | 2024-04-09 00:46 | CONS ---
CONSULTATION REASON FOR CONSULTATION: Advice regarding hyperlipidemia and other medical issues, requested by Dr. Figueroa. HISTORY OF PRESENT ILLNESS: This is a 48-year-old woman with a past medical history of multiple medical problems, had panniculectomy and subsequently the patient also had excision and debridement for abdominal wall skin fat necrosis. Today, the patient has some chills. White count is elevated. No chest pain. No palpitation. PAST MEDICAL HISTORY: Reviewed. REVIEW OF SYSTEMS: A 14-point review of systems is negative except as mentioned earlier. CURRENT MEDICATIONS: Home medications are reviewed, which include ibuprofen. Dose and rest of medications reviewed. ALLERGIES: Mushrooms. FAMILY HISTORY: The patient is adopted. SOCIAL HISTORY: Previous history of smoking. REVIEW OF SYSTEMS: Fourteen-point review of systems is negative except as mentioned earlier. PHYSICAL EXAMINATION: VITAL SIGNS: Pulse is 72, blood pressure is 117/80, respirations 16. HEENT: Conjunctivae normal. NECK: No JVD. CARDIOVASCULAR: S1, S2. RESPIRATIONS: A few scattered rhonchi. ABDOMEN: Soft, status post surgery. LEGS: No edema. NERVOUS SYSTEM: Nonfocal. LABORATORY DATA: WBC 14.5, hemoglobin is 9.4. ASSESSMENT: 1. Status post excision and debridement with abdominal wall skin and fat necrosis. 2. Possible sepsis. 3. Elevated WBC. 4. Anemia. 5. Fibromyalgia. 6. Gastroesophageal reflux disease. 7. Hyperlipidemia. 8. History of anemia. 9. History of bariatric surgery. 10.Multiple complex medical issues. 11.History of Kiya-en-Y. RECOMMENDATIONS AND DISCUSSION: This is a 48-year-old woman, who presented with multiple complex medical issues, we will monitor the patient closely. Continue the current medications. We will initiate broad-spectrum IV antibiotics. Obtain the cultures. Resume the home medications. DVT prophylaxis. We will follow the patient closely with you. MMODL / IJN: [id number] /
[2024-04-09] MEDS: SUCRALFATE 1 GM TAB PO SCH (06:14)
[2024-04-09] MEDS: MAG HYDROX/AL HYDROX/SIMETH 30 ML, HYOSCYAMINE ELIXIR 10 ML, LIDOCAINE VISCOUS 2% 10 ML PO PRN (06:23)
[2024-04-09] MEDS: FAMOTIDINE 20 MG TAB PO SCH (09:11)
--- NOTE | 2024-04-09 10:29 | P.PN ---
Subjective Progress Note Date: 04/09/24 SURGICAL PROGRESS NOTE CHIEF COMPLAINT: Abdominal wall skin and fat necrosis HISTORY OF PRESENT ILLNESS: Patient is postop day #2 status post excisional debridement of abdominal wall skin and fat necrosis. Patient's pain is controlled. She denies any nausea or vomiting. Patient refused blood work. S he is having difficulty with blood draws. Afebrile. Mildly tachycardic heart rate 106. Patient refusing the Anusol hydrocortisone suppositories for her hemorrhoids. PHYSICAL EXAM: VITAL SIGNS: Reviewed. GENERAL: Well-developed in no acute distress. BDOMEN: Soft. Nondistended. Abdominal wound dressing small amount of serosanguineous drainage noted on the right side of the wound. NEUROLOGIC: Alert and oriented. Cranial nerves II through XII grossly intact. ASSESSMENT: 1. Abdominal wall skin and fat necrosis status post debridement 2. Leukocytosis PLAN: -Wound VAC to be placed today -Continue antibiotics -employee development manager arranging home care -Patient has wound care office visit on Friday -Continue pain management -Continue hospitalization due to social issues -[facility] Phys[facility] Wood Milling Machine Hand note has been reviewed by physician. Signing provider agrees with the documented findings, assessment, and plan of care. Objective - Vital Signs Vital signs: Vital Signs Temp 98.0 F 04/09/24 07:34 Pulse 106 H 04/09/24 07:34 Resp 18 04/09/24 07:34 BP 136/93 04/09/24 07:34 Pulse Ox 96 04/09/24 07:34 FiO2 Intake & Output 04/08/24 04/09/24 04/09/24 18:59 06:59 18:59 Other: # Voids 2 - Labs CBC & Chem 7: 04/08/24 02:38 04/08/24 02:38
[2024-04-09] MEDS: ALPRAZolam 0.25 MG TAB PO PRN (15:09)
[2024-04-09] MEDS ORDERED: MAG HYDROX/AL HYDROX/SIMETH 30 ML, diphenhydrAMINE ELIXIR 75 MG, LIDOCAINE VISCOUS 2% 3... PO PRN (19:33)
[2024-04-09] MEDS: TEMAZEPAM 15 MG CAP PO PRN (20:13)
[2024-04-09] MEDS ORDERED: ZINC OXIDE PASTE (Z-GUARD) 1 APPLIC TOPICAL PRN (22:38)
[2024-04-10] MEDS: HYDROcodone/APAP 5-325MG 1 EACH TAB PO PRN (01:56)
[2024-04-10] MEDS: MAG HYDROX/AL HYDROX/SIMETH 30 ML, HYOSCYAMINE ELIXIR 10 ML, LIDOCAINE VISCOUS 2% 10 ML PO PRN (01:59)
--- NOTE | 2024-04-10 03:49 | PN ---
PROGRESS NOTE DATE OF SERVICE: 04/09/2024 SUBJECTIVE: This 48-year-old woman was admitted after abdominal surgery, had features of sepsis. The patient refused blood cultures. No chest pain. No palpitations. She is on broad- spectrum IV antibiotics. OBJECTIVE: VITAL SIGNS: Pulse is 106, blood pressure 130/78, respirations 18. CHEST: Clear to auscultation. ABDOMEN: Soft. No hepatosplenomegaly. LABORATORY DATA: WBC 14.8. ASSESSMENT: 1. Status post excision and debridement with abdominal wall, skin fat necrosis and possible sepsis present on admission. 2. Elevated WBC. 3. Fibromyalgia. 4. Gastroesophageal reflux disease. 5. Hyperlipidemia. 6. History of anemia. 7. History of bariatric surgery. 8. Multiple complex medical issues. 9. History of Kiya-en-Y. RECOMMENDATIONS AND DISCUSSION: Recommend to continue current management. Continue the antibiotics. Closely follow with surgery. Please note staff notes. MMODL / IJN: [id number] /
[2024-04-10 04:27] LABS: Basophils % (A) 0 %; Eosinophils # (A) 0.1 k/uL (0-0.7); Eosinophils % (A) 1 %; Hypochromasia Marked; Lymphocytes # (A) 2.1 k/uL (1.0-4.8); Lymphocytes % (A) 17 %; MCH 26.4 pg (25.0-35.0); MCHC 30.1 g/dL (31.0-37.0); MCV 87.6 fL (80.0-100.0); Mean Platelet Volume 6.9; Monocytes # (A) 0.8 k/uL (0-1.0); Monocytes % (A) 7 %; Neutrophils # (A) 8.5 k/uL (1.3-7.7); Neutrophils % (A) 70 %; Platelet Count 551 k/uL (150-450); RBC 3.54 m/uL (3.80-5.40); RDW 14.4 % (11.5-15.5); WBC 12.1 k/uL (3.8-10.6)
[2024-04-10 04:51] LABS: HGB 9.3 gm/dL (11.4-16.0)
--- NOTE | 2024-04-10 10:11 | P.PN ---
Subjective Progress Note Date: 04/10/24 NAEON. No N/V. No F/C. Controlled pain. No SOB or CP. Ambulatory. Endorses flatus. Tolerating diet. Objective - Vital Signs Vital signs: Vital Signs Temp 97.6 F 04/10/24 07:09 Pulse 86 04/10/24 07:09 Resp 18 04/10/24 07:09 BP 113/80 04/10/24 07:09 Pulse Ox 95 04/10/24 07:09 FiO2 Intake & Output 04/09/24 04/10/24 04/10/24 18:59 06:59 18:59 Other: Voiding Method Toilet Toilet # Voids 4 2 - Exam Gen: AxO, NAD Pulm: non-labored respirations Abd: soft, tender to palpation around wound vac. No erythema seen around wound vac. Non-distended. No guarding/rebound/rigidity incision: Wound vac intact with good suction. [place]ang drainage seen. Extrem: no edema seen - Labs CBC & Chem 7: 04/10/24 03:34 04/08/24 02:38 Labs: Abnormal Lab Results - Last 24 Hours (Table) 04/10/24 Range/Units 03:34 WBC 12.1 H (3.8-10.6) k/uL RBC 3.54 L (3.80-5.40) m/uL Hgb 9.3 L D (11.4-16.0) gm/dL Hct 31.0 L (34.0-46.0) % MCHC 30.1 L (31.0-37.0) g/dL Plt Count 551 H (150-450) k/uL Neutrophils # 8.5 H (1.3-7.7) k/uL Assessment and Plan Assessment: Patient is a 48 year old female who is s/p debridement of necrotic panniculectomy wound with wound vac placement. Plan: -Diet as tolerated -PRN pain and nausea control -Activity as tolerated -CM/SW for homecare -Okay to dc home once homecare established; will need outpatient wound vac therapy Contreras Rodriguez M.D. General Surgery
--- NOTE | 2024-04-10 18:11 | P.PN ---
Subjective Progress Note Date: 04/10/24 Patient is a 48 year old female who is s/p debridement of necrotic panniculectomy wound with wound vac placement. -Diet as tolerated -PRN pain and nausea control -Activity as tolerated -CM/SW for homecare -Okay to dc home once homecare established; will need outpatient wound vac therapy Objective - Vital Signs Vital signs: Vital Signs Temp 97.6 F 04/10/24 07:09 Pulse 86 04/10/24 07:09 Resp 18 04/10/24 07:09 BP 113/80 04/10/24 07:09 Pulse Ox 95 04/10/24 07:09 FiO2 Intake & Output 04/09/24 04/10/24 04/10/24 18:59 06:59 18:59 Other: Voiding Method Toilet Toilet Toilet # Voids 4 2 - Exam - Constitutional General appearance: Present: average body habitus, cooperative, no acute distress - EENT Eyes: Present: anicteric sclerae, EOMI, PERRLA, normal appearance ENT: Present: hearing grossly normal, normal oropharynx Ears: bilateral: normal - Neck Neck: Present: normal ROM. Absent: lymphadenopathy, rigidity, thyromegaly Carotids: negative: bruit present Thyroid: bilateral: normal size, negative: enlarged, nodule - Respiratory Respiratory: bilateral: CTA, negative: rales, rhonchi, wheezing - Cardiovascular Rhythm: regular Heart sounds: normal: S1, S2 Abnormal Heart Sounds: Absent: systolic murmur, diastolic murmur - Gastrointestinal General gastrointestinal: Present: normal bowel sounds, soft. Absent: distended, organomegaly, tenderness - Genitourinary Genitourinary Comment(s): deferred - Integumentary Integumentary: Present: normal turgor. Absent: jaundiced, rash, ulcer - Neurologic Neurologic: Present: CNII-XII intact. Absent: focal deficits - Musculoskeletal Musculoskeletal: Present: gait normal, strength equal bilaterally - Psychiatric Psychiatric: Present: A&O x's 3, appropriate affect, intact judgment & insight - Labs CBC & Chem 7: 04/10/24 03:34 04/08/24 02:38 Labs: Abnormal Lab Results - Last 24 Hours (Table) 04/10/24 Range/Units 03:34 WBC 12.1 H (3.8-10.6) k/uL RBC 3.54 L (3.80-5.40) m/uL Hgb 9.3 L D (11.4-16.0) gm/dL Hct 31.0 L (34.0-46.0) % MCHC 30.1 L (31.0-37.0) g/dL Plt Count 551 H (150-450) k/uL Neutrophils # 8.5 H (1.3-7.7) k/uL Assessment and Plan Assessment: Status post excision and debridement of abdominal wall skin fat necrosis and possible sepsis Leukocytosis Fibromyalgia Hyperlipidemia Gastroesophageal reflux disease History of anemia History of bariatric surgery --Patient remains stable as indicated above; surgery on board with plans for possible discharge later today or tomorrow
--- NOTE | 2024-04-11 14:59 | P.PN ---
Subjective Progress Note Date: 04/11/24 CHIEF COMPLAINT: Necrotizing infection HISTORY OF PRESENT ILLNESS: The patient is a 48-year-old female who presents following necrotizing infection from panniculectomy over a month ago. She reports still persistent pain along her debridement site of the abdomen. She has a wound VAC. Wound VAC was placed Friday. She has a history of gastric bypass. Patient has shared images of her necrotizing infection including debridements. ROS: No reports of nausea and vomiting. No fevers or chills. No new chest pain. No productive sputum. Morbid obesity excess calories, BMI 36.2. PHYSICAL EXAM: VITAL SIGNS: Reviewed CONSTITUTIONAL: Well developed and in no acute distress. EYES: Conjuctivae without sclera icterus. Extraocular movements grossly intact. HEAD, EARS, NOSE, THROAT: Moist buccal mucosa. Head is atraumatic, normocephalic. Hears conversational speech. No nasal drainage. RESPIRATORY: Non-labored respirations and equal bilateral excursions. CARDIOVASCULAR: Palpable 2+ radial pulses. ABDOMEN: Abdominal wound VAC intact. MUSCULOSKELETAL: No gross deformity of the lower extremities noted. No clubbing. No cyanosis. SKIN: Good skin turgor. Well perfused. NEUROLOGIC: Cranial nerves II through XII grossly intact. No focal or lateralizing signs. PSYCH: Appropriate affect. Alert and oriented to person, place and time. CLINICAL LABS: Reviewed. WBC elevated over 12,000 on 04/10/2024 ASSESSMENT: 1. Necrotizing infection surgical site, panniculectomy 2. Morbid obesity excess calories, BMI 36.2 3. Persistent leukocytosis PLAN: 1. Patient has pre-existing history of gastric bypass where protein malnutrition and global malnutrition is inherent. Recommend starting protein shake 30 g 3 times daily for optimal recovery. Premier protein ordered. 2. Hold discharge today as she has persistent leukocytosis persistent abdominal pain. 3. Patient is seeking numbing spray for wound VAC changes. Objective - Vital Signs Vital signs: Vital Signs Temp 97.7 F 04/11/24 07:00 Pulse 70 04/11/24 07:00 Resp 16 04/11/24 07:00 BP 116/84 04/11/24 07:00 Pulse Ox 98 04/11/24 07:00 FiO2 Intake & Output 04/10/24 04/11/24 04/11/24 18:59 06:59 18:59 Other: Voiding Method Toilet Toilet # Voids 4 # Bowel Movements 1 - Labs CBC & Chem 7: 04/10/24 03:34 04/08/24 02:38
[2024-04-11] MEDS: MULTIVITAMINS, THERA 1 EACH TAB PO SCH (15:10)
--- NOTE | 2024-04-11 16:12 | P.PN ---
Subjective Progress Note Date: 04/11/24 Patient is a 48 year old female who is s/p debridement of necrotic panniculectomy wound with wound vac placement. -Diet as tolerated -PRN pain and nausea control -Activity as tolerated -CM/SW for homecare -Okay to dc home once homecare established; will need outpatient wound vac therapy 24-hour interval change 04/11/2024 Patient is seen and evaluated resting comfortably in bed; no specific complaints reported Vital signs are reviewed and remained stable Patient is status post panniculectomy for necrotizing infection surgical site; general surgery on board; recommending to continue with current management --Patient recommended dietary supplement given history of bypass and possible protein malnutrition -- Surgery recommending to continue to monitor overnight given leukocytosis and persistent abdominal pain Objective - Vital Signs Vital signs: Vital Signs Temp 97.7 F 04/11/24 07:00 Pulse 70 04/11/24 07:00 Resp 16 04/11/24 07:00 BP 116/84 04/11/24 07:00 Pulse Ox 98 04/11/24 07:00 FiO2 Intake & Output 04/10/24 04/11/24 04/11/24 18:59 06:59 18:59 Other: Voiding Method Toilet Toilet # Voids 4 # Bowel Movements 1 - Exam - Constitutional General appearance: Present: average body habitus, cooperative, no acute distress - EENT Eyes: Present: anicteric sclerae, EOMI, PERRLA, normal appearance ENT: Present: hearing grossly normal, normal oropharynx Ears: bilateral: normal - Neck Neck: Present: normal ROM. Absent: lymphadenopathy, rigidity, thyromegaly Carotids: negative: bruit present Thyroid: bilateral: normal size, negative: enlarged, nodule - Respiratory Respiratory: bilateral: CTA, negative: rales, rhonchi, wheezing - Cardiovascular Rhythm: regular Heart sounds: normal: S1, S2 Abnormal Heart Sounds: Absent: systolic murmur, diastolic murmur - Gastrointestinal General gastrointestinal: Present: normal bowel sounds, soft. Absent: distended, organomegaly, tenderness - Genitourinary Genitourinary Comment(s): deferred - Integumentary Integumentary: Present: normal turgor. Absent: jaundiced, rash, ulcer - Neurologic Neurologic: Present: CNII-XII intact. Absent: focal deficits - Musculoskeletal Musculoskeletal: Present: gait normal, strength equal bilaterally - Psychiatric Psychiatric: Present: A&O x's 3, appropriate affect, intact judgment & insight - Labs CBC & Chem 7: 04/10/24 03:34 04/08/24 02:38 Assessment and Plan Assessment: Status post excision and debridement of abdominal wall skin fat necrosis and possible sepsis Leukocytosis Fibromyalgia Hyperlipidemia Gastroesophageal reflux disease History of anemia History of bariatric surgery --Patient remains stable as indicated above; surgery on board with plans for possible discharge later today or tomorrow
[2024-04-12 08:27] LABS: Basophils % (A) 0 %; Eosinophils # (A) 0.3 k/uL (0-0.7); Eosinophils % (A) 4 %; HCT 28.8 % (34.0-46.0); HGB 8.7 gm/dL (11.4-16.0); Hypochromasia Marked; Lymphocytes # (A) 1.9 k/uL (1.0-4.8); Lymphocytes % (A) 27 %; MCH 26.4 pg (25.0-35.0); MCHC 30.3 g/dL (31.0-37.0); MCV 87.2 fL (80.0-100.0); Mean Platelet Volume 6.5; Monocytes # (A) 0.6 k/uL (0-1.0); Monocytes % (A) 8 %; Neutrophils # (A) 4.2 k/uL (1.3-7.7); Neutrophils % (A) 58 %; Platelet Count 540 k/uL (150-450); RDW 14.5 % (11.5-15.5); WBC 7.3 k/uL (3.8-10.6)
--- NOTE | 2024-04-12 08:40 | CDI ---
Documentation Clarification Form Date: 04/12/2024 08:24:37 AM From: Meghan Yancey RN CCDS Phone: [phone] Admit Date: 04/07/2024 01:34:00 PM Patient Name: Della Vallejo Visit Number: [id number] Discharge Date: ATTENTION: The Clinical Documentation Specialists (CDI) and [facility] Coding Staff appreciate your assistance in clarifying documentation. Please respond to the clarification below the line at the bottom and electronically sign. The CDI & [facility] Coding staff will review the response and follow-up if needed. Please note: Queries are made part of the Legal Health Record. If you have any questions, please contact the author of this message via ITS. Doctor: Rory Sepsis is documented /04/11 Medicine notes which may lack sufficient clinical evidence/support in the medical record. Additional clarification is requested. History/Risk Factors: 48 year old female presents to [facility] for elective Excisional debridement of necrotic panniculectomy wound. Medical History: Anemia, Fibromyalgia, GERD, HLD and Kiya-en-Y surgery. 04/08, Medicine Consult. Clinical Indicators: 04/08 VS: B/P 147/87 HR 92 Temp 97.3 Oral; RR 17 SpO2 98% ra bmi 36.2kg 04/08 Labs: Wbc 14.8; Neutrophils 12.17 04/08 CXR no acute process. Treatment: 04/08 Zosyn IVPB Q8H After work up and study, please clarify which diagnosis is most appropriate? [ ] Sepsis ruled out [ ] Sepsis is a valid diagnosis as evidence by the following: (Please add rationale): [ ] Other, please specify [ ] Unable to determine Sepsis ruled out (Template Last Reviewed: April 2023) MTDD
--- NOTE | 2024-04-12 13:02 | P.PN ---
Subjective Progress Note Date: 04/12/24 SURGICAL PROGRESS NOTE CHIEF COMPLAINT: Abdominal wall skin and fat necrosis HISTORY OF PRESENT ILLNESS: Patient is postop day #5 status post excisional debridement of abdominal wall skin and fat necrosis. Patient's pain is controlled. She denies any nausea or vomiting. Her WBC has normalized at 7.3. Afebrile. Patient does report that she had issues with the wound VAC leaking yesterday. Currently not leaking. PHYSICAL EXAM: VITAL SIGNS: Reviewed. GENERAL: Well-developed in no acute distress. BDOMEN: Soft. Nondistended. Large abdominal wound with wound VAC in place NEUROLOGIC: Alert and oriented. Cranial nerves II through XII grossly intact. ASSESSMENT: 1. Abdominal wall skin and fat necrosis status post debridement 2. Leukocytosis resolved PLAN: -Plan for discharge tomorrow morning. Patient to follow-up at wound care center and have wound VAC placed at that time -Patient will be discharged with oral antibiotics -Remove wound VAC today and apply wet-to-dry dressing -Continue hospitalization due to social issues -DVT prophylaxis Lovenox Physician Insurance Underwriter note has been reviewed by physician. Signing provider agrees with the documented findings, assessment, and plan of care. Objective - Vital Signs Vital signs: Vital Signs Temp 97.6 F 04/12/24 06:58 Pulse 71 04/12/24 08:04 Resp 16 04/12/24 08:04 BP 137/90 04/12/24 06:58 Pulse Ox 97 04/12/24 06:58 FiO2 Intake & Output 04/11/24 04/12/24 04/12/24 18:59 06:59 18:59 Other: Voiding Method Toilet Toilet Toilet # Voids 4 1 1 # Bowel Movements 0 - Labs CBC & Chem 7: 04/12/24 07:59 04/08/24 02:38 Labs: Abnormal Lab Results - Last 24 Hours (Table) 04/12/24 Range/Units 07:59 RBC 3.30 L (3.80-5.40) m/uL Hgb 8.7 L (11.4-16.0) gm/dL Hct 28.8 L (34.0-46.0) % MCHC 30.3 L (31.0-37.0) g/dL Plt Count 540 H (150-450) k/uL
--- NOTE | 2024-04-12 13:04 | P.DS ---
Providers Date of admission: 04/07/24 13:34 Expected date of discharge: 04/13/24 Attending physician: Jacky Figueroa Consults: 04/08/24 11:16 Consult Physician Routine Consulting Provider: Subhash Valadez Consult Reason/Comments: medical management Do you want consulting provider notified?: Yes Primary care physician: Nicholas Mijares Hospital Course: Discharge diagnosis 1. Abdominal wall skin and fat necrosis status post debridement 2. Leukocytosis resolved Hospital course This is a 48-year-old female with a previous panniculectomy and abdominal wall skin and fat necrosis. She is status post debridement. She will have wound VAC placed at the wound care center tomorrow. Her pain is controlled. Her white count is normalized. She is afebrile. She is having bowel movements. She has been up and ambulating. She will be discharged with oral antibiotics. She is stable for discharge. Please refer to chart for any further details. Physician Environmental Compliance Manager note has been reviewed by physician. Signing provider agrees with the documented findings, assessment, and plan of care. Patient Condition at Discharge: Stable Plan - Discharge Summary Discharge Rx Participant: Yes New Discharge Prescriptions: New metroNIDAZOLE [Flagyl] 500 mg PO TID 10 Days #30 tab Levofloxacin [Levaquin] 500 mg PO DAILY 10 Days #10 tab Ibuprofen [Motrin] 600 mg PO Q6HR PRN #40 tab PRN Reason: Pain HYDROcodone/APAP 5-325MG [Sabinal 5-325] 1 tab PO Q6HR PRN #30 tab PRN Reason: Pain Continue Sennosides [Senokot] 8.6 mg PO BID PRN tab PRN Reason: Constipation Acetaminophen Tab [Tylenol] 650 mg PO Q6H #30 tab Discontinued Ibuprofen [Motrin] 600 mg PO Q6HR PRN #40 tab PRN Reason: Pain Discharge Medication List Sennosides [Senokot] 8.6 mg PO BID PRN tab 03/08/24 [Rx] Acetaminophen Tab [Tylenol] 650 mg PO Q6H #30 tab 03/25/24 [Rx] HYDROcodone/APAP 5-325MG [Sabinal 5-325] 1 tab PO Q6HR PRN #30 tab 04/07/24 [Rx] Ibuprofen [Motrin] 600 mg PO Q6HR PRN #40 tab 04/07/24 [Rx] Levofloxacin [Levaquin] 500 mg PO DAILY 10 Days #10 tab 04/09/24 [Rx] metroNIDAZOLE [Flagyl] 500 mg PO TID 10 Days #30 tab 04/09/24 [Rx] Follow up Appointment(s)/Referral(s): [facility], [NON-STAFF] - As Needed ([facility] will call you to schedule your in home nursing visits. Your first visit will be on 04/11/24.) [facility] [NON-STAFF] - 04/13/24 8:00 am Jacky Figueroa MD [STAFF PHYSICIAN] - 04/12/24 8:20 am Activity/Diet/Wound Care/Special Instructions: No driving while taking Sabinal No lifting over 10 pounds You may shower. No soaking or tub baths for 2 weeks Very light activity until you are reevaluated at your follow up appointment with your surgeon Discharge Disposition: HOME WITH HOME HEALTH SERVICES
[2024-04-12 14:18] VITALS: BMI 36.2
[2024-04-12] MEDS: BENZOCAINE SPRAY 1 CAN TOPICAL STA (20:18)
--- NOTE | 2024-04-12 21:28 | PN ---
PROGRESS NOTE DATE OF SERVICE: 04/12/2024 SUBJECTIVE: This is a 48-year-old woman, who was admitted with debridement of abdominal wall, also had sepsis on admission. The patient improved significantly. No chest pain. No palpitation. OBJECTIVE: VITAL SIGNS: Pulse 71, blood pressure 137/90, respirations 16. CHEST: Clear to auscultation. CARDIOVASCULAR: S1, S2. ABDOMEN: Soft. NERVOUS SYSTEM: Nonfocal. LABORATORY DATA: Hemoglobin 8.7. ASSESSMENT: 1. Status post excisional debridement of the abdominal wall for skin fat necrosis and possible sepsis present on admission. 2. Elevated WBC. 3. Fibromyalgia. 4. Gastroesophageal reflux disease. 5. Hyperlipidemia. 6. History of anemia. 7. History of bariatric surgery. 8. Multiple complex medical issues. 9. History of Kiya-en-Y. RECOMMENDATIONS: Recommend to continue current management and continue symptomatic treatment. Otherwise, I recommend to closely follow with primary physician. Rest of the recommendations per Surgery. Further recommendations to follow. MMODL / IJN: [id number] /
[2024-04-13 02:37] VITALS: BP 146/88; PULSE 89; RESP 16; TEMP 98.2
== END 2024-04-13 07:33 | disposition home health service (06) | DRG 721 ==
LOC: OR 10:53 → OBSVTOIN 13:34 → 4SSUR 13:34 → OR 13:34
PROVIDERS: ADMIT Surgery; ATTEND Surgery
PROC: 0JB80ZZ Excision of Abdomen Subcutaneous Tissue and Fascia, Open Approach (ICD-10-PCS; principal; 2024-04-07 12:15)
DX: T81.40XA Infection following a procedure, unspecified, initial encounter (principal); K65.4 Sclerosing mesenteritis; E78.5 Hyperlipidemia, unspecified; D64.9 Anemia, unspecified; M79.7 Fibromyalgia; K21.9 Gastro-esophageal reflux disease without esophagitis; D72.829 Elevated white blood cell count, unspecified; K64.9 Unspecified hemorrhoids; E66.01 Morbid (severe) obesity due to excess calories; Z68.36 Body mass index [BMI] 36.0-36.9, adult; Z98.84 Bariatric surgery status; Z87.891 Personal history of nicotine dependence
CPT/HCPCS: 71045; 80053; 85025; 88304

== ENCOUNTER 2024-04-15 18:36 | Emergency (ER) | payer OTHER ==
[2024-04-15 19:49] LABS: Basophils % (A) 0 %; Eosinophils # (A) 0.2 k/uL (0-0.7); Eosinophils % (A) 2 %; HCT 32.5 % (34.0-46.0); Hypochromasia Marked; Lymphocytes # (A) 1.5 k/uL (1.0-4.8); Lymphocytes % (A) 19 %; MCH 25.9 pg (25.0-35.0); MCHC 30.7 g/dL (31.0-37.0); MCV 84.3 fL (80.0-100.0); Mean Platelet Volume 6.5; Monocytes # (A) 0.6 k/uL (0-1.0); Monocytes % (A) 7 %; Neutrophils # (A) 5.6 k/uL (1.3-7.7); Neutrophils % (A) 69 %; Platelet Count 605 k/uL (150-450); RBC 3.86 m/uL (3.80-5.40); RDW 14.7 % (11.5-15.5); WBC 8.1 k/uL (3.8-10.6)
[2024-04-15] MEDS: SODIUM CHLORIDE 0.9% 1,000 ML IV ONE (19:52)
[2024-04-15] MEDS: ONDANSETRON 4 MG/2 ML VIAL IVP STA (19:57)
[2024-04-15] MEDS: HYDROmorphone 1 MG/ML 1 ML SYRINGE IVP STA ×2 (19:59→21:37)
[2024-04-15 20:01] VITALS: TEMP 98.6
[2024-04-15 20:01] LABS: ALT 27 U/L (4-34); AST 24 U/L (14-36); African American GFR (CKD) >90 (>60 ml/min/1.73 sqM); Albumin 3.7 g/dL (3.5-5.0); Alkaline Phosphatase 144 U/L (38-126); Anion Gap 5 mmol/L; Blood Urea Nitrogen 5 mg/dL (7-17); C Reactive Protein 2.8 mg/dL (<1.0); Calcium 9.2 mg/dL (8.4-10.2); Carbon Dioxide 24 mmol/L (22-30); Chloride 108 mmol/L (98-107); Glucose 99 mg/dL (74-99); Non-African American GFR(CKD) >90 (>60 ml/min/1.73 sqM); Potassium 3.9 mmol/L (3.5-5.1); Sodium 137 mmol/L (137-145); Total Bilirubin 0.4 mg/dL (0.2-1.3); Total Protein 6.5 g/dL (6.3-8.2)
--- NOTE | 2024-04-15 21:31 | ED ---
General Adult HPI - General Chief complaint: Skin/Abscess/Foreign Body Stated complaint: Open wound on abdomen Time Seen by Provider: 04/15/24 19:00 Source: patient Mode of arrival: wheelchair Limitations: no limitations - History of Present Illness Initial comments: 48-year-old female presents emergency department with open wound on her abdomen. Patient had panniculectomy done by Dr. Figueroa in February. After the procedure the patient had low blood pressure and unfortunately had necrosis of her surgical site. Patient now has a large open abdominal wall wound. She has been seeing Dr. Lazo at the wound care clinic. She currently has an Aquacel silver nitrate dressing placed with overlying wet gauze. She was wearing a wound VAC for a period of time. She did see Dr. Lazo on Friday. He was going to schedule a home care nurse that could help her with dressing changes. He is also going to refer her to a plastic surgeon who can do abdominal wall closure. Tonight the patient was doing the dressing change when she noted some bright red blood at the area. She is concerned as she has never seen bleeding from the site and because of that she came into the emergency department. She states she was try to get a hold of the wound care clinic yesterday but failed. She denies fevers. No purulent drainage from the site. No worsening pain. No other alleviating, precipitating or modifying factors - Related Data Previous Rx's Medication Instructions Recorded Sennosides [Senokot] 8.6 mg PO BID PRN tab 03/08/24 Acetaminophen Tab [Tylenol] 650 mg PO Q6H #30 tab 03/25/24 HYDROcodone/APAP 5-325MG [[place] 1 tab PO Q6HR PRN #30 tab 04/07/24 5-325] Ibuprofen [Motrin] 600 mg PO Q6HR PRN #40 tab 04/07/24 Levofloxacin [Levaquin] 500 mg PO DAILY 10 Days #10 tab 04/09/24 metroNIDAZOLE [Flagyl] 500 mg PO TID 10 Days #30 tab 04/09/24 Benzocaine [place] [Hurricaine [place]] 1 applic TOPICAL DAILY PRN #1 each 04/12/24 HYDROcodone/APAP 7.5-325MG [[place] 1 tab PO Q6HR PRN 3 Days #12 tab 04/15/24 7.5-325] Allergies Allergy/AdvReac Type Severity Reaction Status Date / Time Mushroom Allergy closes Verified 04/15/24 18:53 throat Review of Systems ROS Statement: Those systems with pertinent positive or pertinent negative responses have been documented in the HPI. ROS Other: All systems not noted in ROS Statement are negative. Past Medical History Past Medical History: Fibromyalgia, GERD/Reflux, Hyperlipidemia Additional Past Medical History / Comment(s): hx peptic ulcers, migraines, anemia -pcp monitoring HGB. open abdominal wound post pannis surgery ( pt states the size of a basketball). packs several times a day, nurse to the home once a week. pt states it is still black around the wound.( pt states in ICU post pannis surgery , 1 unit while in hospital)). History of Any Multi-Drug Resistant Organisms: None Reported Past Surgical History: Adenoidectomy, Bariatric Surgery, Section, Cholecystectomy, Ear Surgery, Hysterectomy, Orthopedic Surgery, Tonsillectomy, Uterine Ablation Additional Past Surgical History / Comment(s): PITO EN Y-2007, man carpal tunnel, C/S x 2 , hemorrhoidectomy. panniculectomy Past Anesthesia/Blood Transfusion Reactions: No Reported Reaction Additional Past Anesthesia/Blood Transfusion Reaction / Comment(s): Adopted-FA IMER HX UNKNOWN Past Psychological History: No Psychological Hx Reported Smoking Status: Former smoker Past Alcohol Use History: None Reported Past Drug Use History: None Reported - Past Family History Mother Family Medical History: Unable to Obtain Additional Family Medical History / Comment(s): Adopted Father Family Medical History: Unable to Obtain Additional Family Medical History / Comment(s): adopted General Exam Limitations: no limitations General appearance: alert, in no apparent distress Head exam: Present: atraumatic, normocephalic, normal inspection Eye exam: Present: normal appearance, PERRL, EOMI. Absent: scleral icterus, conjunctival injection, periorbital swelling ENT exam: Present: normal exam, mucous membranes moist Neck exam: Present: normal inspection. Absent: tenderness, meningismus, lymphadenopathy Respiratory exam: Present: normal lung sounds bilaterally. Absent: respiratory distress, wheezes, rales, rhonchi, stridor Cardiovascular Exam: Present: regular rate, normal rhythm, normal heart sounds. Absent: systolic murmur, diastolic murmur, rubs, gallop, clicks GI/Abdominal exam: Present: soft, tenderness, normal bowel sounds, other (There is a large anterior abdominal wall wound which exposes the underlying subcutaneous tissue. Wound spans for measurement of 30 cm x 18 cm. There is a small area of dried bright red blood near the right superior aspect. No purulent drainage). Absent: distended, guarding, rebound, rigid Extremities exam: Present: normal inspection, full ROM, normal capillary refill. Absent: tenderness, pedal edema, joint swelling, calf tenderness Back exam: Present: normal inspection Neurological exam: Present: alert, oriented X3, CN II-XII intact Psychiatric exam: Present: normal affect, normal mood Skin exam: Present: warm, dry, intact, normal color. Absent: rash Course Vital Signs 04/15/24 04/15/24 04/15/24 18:53 19:52 21:00 Temperature 98.3 F 98.6 F Pulse Rate 84 82 85 Respiratory 18 18 18 Rate Blood Pressure 129/93 152/100 145/83 O2 Sat by Pulse 100 96 98 Oximetry 04/15/24 21:41 Temperature Pulse Rate 81 Respiratory 16 Rate Blood Pressure 140/89 O2 Sat by Pulse 98 Oximetry Medical Decision Making - Medical Decision Making Was pt. sent in by a medical professional or institution (, PA, PLUMBING ASSEMBLER, urgent care, hospital, or senior living...) When possible be specific @ -No Did you speak to anyone other than the patient for history (EMS, parent, family, police, friend...)? What history was obtained from this source @ -Spoke with the mother for history Did you review nursing and triage notes (agree or disagree)? Why? @ -I reviewed and agree with nursing and triage notes Were old charts reviewed (outside hosp., previous admission, EMS record, old EKG, old radiological studies, urgent care reports/EKG's, senior living records)? Report findings @ -No old charts were reviewed Differential Diagnosis (chest pain, altered mental status, abdominal pain women, abdominal pain men, vaginal bleeding, weakness, fever, dyspnea, syncope, headache, dizziness, GI bleed, back pain, seizure, CVA, palpatations, mental health, musculoskeletal)? @ -Bleeding abdominal wall wound, abdominal wall infection, skin necrosis EKG interpreted by me (3pts min.). @ -Not done X-rays interpreted by me (1pt min.). @ -None done CT interpreted by me (1pt min.). @ -None done U/S interpreted by me (1pt. min.). @ -None done What testing was considered but not performed or refused? (CT, X-rays, U/S, labs)? Why? @ -None What meds were considered but not given or refused? Why? @ -None Did you discuss the management of the patient with other professionals (professionals i.e. Dr., PA, PLUMBING ASSEMBLER, lab, RT, psych nurse, child protective services social worker, telephone maintainer, teacher, principal gifts officer, test case developer)? Give summary @ -I spoke with Dr. Lazo. He recommends that the patient call the wound care clinic in the morning to inquire about home care. Patient is to continue her antibiotics. Dr. Lazo does instruct me on how to repack the patient's dressing Was smoking cessation discussed for >3mins.? @ -No Was critical care preformed (if so, how long)? @ -No Were there social determinants of health that impacted care today? How? (Homelessness, low income, unemployed, alcoholism, drug addiction, tr ansportation, low edu. Level, literacy, decrease access to med. care, fdc, rehab)? @ -No Was there de-escalation of care discussed even if they declined (Discuss DNR or withdrawal of care, Hospice)? DNR status @ -No What co-morbidities impacted this encounter? (DM, HTN, Smoking, COPD, CAD, Cancer, CVA, ARF, Chemo, Hep., AIDS, mental health diagnosis, sleep apnea, morbid obesity)? @ -Obesity Was patient admitted / discharged? Hospital course, mention meds given and route, prescriptions, significant lab abnormalities, going to OR and other pertinent info. @ -Upon arrival patient seen and evaluated in bed 6. Thorough history and physical exam was performed. I did remove the patient's gauze. There is no immediate signs of infection identified. No active bleeding. I did give the patient a dose of pain medications laboratory studies are conducted. I called and spoke with Dr. Lazo. States that she is to continue her antibiotics. I was instructed in how to redress the patient's wound. Patient is to call in the morning to help obtain services from home care. He is working on a referral to a plastic surgeon however this surgical procedure for closure will not be done anytime soon as the patient requires a course of antibiotics first. I did inform the patient of this. She understood. She will be discharged home at this time. Instructed to return for any new or worsening symptoms. Patient discharged in stable condition Undiagnosed new problem with uncertain prognosis? @ -No Drug Therapy requiring intensive monitoring for toxicity (Heparin, Nitro, Insulin, Cardizem)? @ -No Were any procedures done? @ -No Diagnosis/symptom? 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 @ -Chronic Uncomplicated (without systemic symptoms) or Complicated (systemic symptoms)? @ -Complicated Side effects of treatment? @ -No Exacerbation, Progression, or Severe Exacerbation? @ -No Poses a threat to life or bodily function? How? (Chest pain, [place], [place], pneumonia, PE, COPD, DKA, ARF, appy, cholecystitis, CVA, Diverticulitis, Homicidal, Suicidal, threat to staff... and all critical care pts) @ -No - Lab Data Result diagrams: 04/15/24 19:38 04/15/24 19:38 Lab Results 04/15/24 04/15/24 04/15/24 Range/Units 19:38 19:38 19:38 WBC 8.1 (3.8-10.6) k/uL RBC 3.86 (3.80-5.40) m/uL Hgb 10.0 L (11.4-16.0) gm/dL Hct 32.5 L (34.0-46.0) % MCV 84.3 (80.0-100.0) fL MCH 25.9 (25.0-35.0) pg MCHC 30.7 L (31.0-37.0) g/dL RDW 14.7 (11.5-15.5) % Plt Count 605 H (150-450) k/uL MPV 6.5 Neutrophils % 69 % Lymphocytes % 19 % Monocytes % 7 % Eosinophils % 2 % Basophils % 0 % Neutrophils # 5.6 (1.3-7.7) k/uL Lymphocytes # 1.5 (1.0-4.8) k/uL Monocytes # 0.6 (0-1.0) k/uL Eosinophils # 0.2 (0-0.7) k/uL Basophils # 0.0 (0-0.2) k/uL Hypochromasia Marked Sodium 137 (137-145) mmol/L Potassium 3.9 (3.5-5.1) mmol/L Chloride 108 H (98-107) mmol/L Carbon Dioxide 24 (22-30) mmol/L Anion Gap 5 mmol/L BUN 5 L (7-17) mg/dL Creatinine 0.60 (0.52-1.04) mg/dL Est GFR (CKD-EPI)AfAm >90 (>60 ml/min/1.73 sqM) Est GFR (CKD-EPI)NonAf >90 (>60 ml/min/1.73 sqM) Glucose 99 (74-99) mg/dL Plasma Lactic Acid Ady 1.0 (0.7-2.0) mmol/L Calcium 9.2 (8.4-10.2) mg/dL Total Bilirubin 0.4 (0.2-1.3) mg/dL AST 24 (14-36) U/L ALT 27 (4-34) U/L Alkaline Phosphatase 144 H (38-126) U/L C-Reactive Protein 2.8 H (<1.0) mg/dL Total Protein 6.5 (6.3-8.2) g/dL Albumin 3.7 (3.5-5.0) g/dL Disposition Clinical Impression: Open abdominal wall wound Disposition: HOME SELF-CARE Condition: Stable Instructions (If sedation given, give patient instructions): Chronic Wound Care (ED) Additional Instructions: Please call the wound care center in the morning to have them assist you with home care. Take the antibiotics as directed. Take the [place] 7.5 mg that I have prescribed and hold off on the 5 mg dose that you already have at home. If you cannot get a hold of the wound care in the morning, call the bindery cutter operator at and have them page Dr. Lazo. Prescriptions: HYDROcodone/APAP 7.5-325MG [[place] 7.5-325] 1 tab PO Q6HR PRN 3 Days #12 tab PRN Reason: Pain Is patient prescribed a controlled substance at d/c from ED?: Yes When asked, does pt state using other controlled substances?: No If prescribed controlled substance>3 days was MAPS reviewed?: Prescribed <3 Days If opioid is for acute pain is fill amount 7 days or less?: Yes Referrals: Nicholas Mijares MD [Primary Care Provider] - 1-2 days [facility] [NON-STAFF] - 1-2 days Time of Disposition: 21:30
[2024-04-15 21:44] VITALS: BP 140/89; PULSE 81; RESP 16
== END 2024-04-15 21:53 | disposition home or self-care (01) ==
LOC: EC 18:36
DX: S31.109A Unspecified open wound of abdominal wall, unspecified quadrant without penetration into peritoneal cavity, initial encounter (principal); E66.9 Obesity, unspecified; Z87.891 Personal history of nicotine dependence; Z91.018 Allergy to other foods; Z68.32 Body mass index [BMI] 32.0-32.9, adult
CPT/HCPCS: 36415; 80053; 83605; 85025; 86140; 99283; 96374; 96375; 96376; 96361; J2405; J1171